=== PATIENT | male | born 1980 | race American Indian/Alaskan Native ===

== ENCOUNTER 2017-10-14 07:57 | Emergency (ER) | payer MEDICAID ==
[~2017-10-14] VITALS: Ht 170.2 cm; Wt 63.5 kg
[~2017-10-14 07:57] MED LIST: AUGMENTIN 875-1 EACH PO; NORCO 5-325 TA1 EACH PO; TRAMADOL HCL50 MG PO
--- NOTE | 2017-10-15 16:56 | EKG ---
[facility] [address] [facility] [place] [address] Signed Sinus tachycardia Otherwise normal ECG No previous ECGs available Confirmed by NE CELESTIN MD ([id number]) on 10/15/2017 4:56:14 PM Electronically Signed By: NE CELESTIN MD 10/15/17 1656 PATIENT NAME: PJ HENRY Electrocardiogram DATE OF : 84 PHYSICIAN: NE CELESTIN MD REPORT #: [id number] REPORT IS CONFIDENTIAL AND NOT TO BE RELEASED WITHOUT AUTHORIZATION
== END 2017-10-14 11:36 | disposition short-term general hospital (02) ==
LOC: ED 07:57 → EDBD 07:59 → ED 11:36
DX: A41.9 Sepsis, unspecified organism (principal); R56.9 Unspecified convulsions; F15.10 Other stimulant abuse, uncomplicated
CPT/HCPCS: 31500; 31720; 43752; 51702; 62270; 70450; 71045; 80053; 81001; 82150; 82550; 82803; 82945; 83605; 83690; 84157; 84484; 85025; 85032; 86850; 86900; 86901; 89051; 93005; 93010; 94002; 96365; 96366; 96375; 99285; G0480; J0696; J1953; J2060; J2704; J3411; J7030; J7042

== ENCOUNTER 2019-02-07 18:09 | Emergency (ER) | payer OTHER ==
[~2019-02-07] VITALS: Ht 170.2 cm; Wt 63.5 kg
--- OUTSIDE RECORDS SUMMARY | ~2019-02-07 | XMS | Encounter Summary ---
Demographics + + + | Address | [address] | | | [place] [address] | + + + | Home Phone | | + + + | Preferred Language | Unknown | + + + | Marital Status | Single | + + + | Lutheran Affiliation | Unknown | + + + | Race | Unknown | + + + | Ethnic Group | Unknown | + + + Author + + + | Author | [facility] | | | and [place] | + + + | Organization | [facility] | | | and [place] | + + + | Address | Unknown | + + + | Phone | Unavailable | + + + Support + + +---------+ + | Name | Relationship | Address | Phone | + + +---------+ + | Renetta Parker ECON | Unknown | | + + +---------+ + Care Team Providers + +------+ + | Care Multifocal Button Generator Name | Role | Phone | + +------+ + PCP | Unavailable | + +------+ + Encounter Details +--------+ + + + + | Date | Type | Department | Care Team | Description | +--------+ + + + + | 10/14/ | Hospital | [facility] | Conversion | Chest pain, | | 2018 | Encounter | CONVERSION [address] | Transaction, | unspecified type | | | | [address] | Provider Unknown | | | | | [place] | | | | | | [phone] | (Fax) | | | | | [phone] | | | +--------+ + + + + Social History + +-------+ +--------+------+ | Tobacco Use | Types | Packs/Day | Years | Date | | | | | Used | | + +-------+ +--------+------+ | Never Assessed | | | | | + +-------+ +--------+------+ + + + | Sex Assigned at | Date Recorded | | | | + + + | Not on file | | + + + + + + + | Job Start Date | Occupation | Industry | + + + + | Not on file | Not on file | Not on file | + + + + + + + + | Travel History | Travel Start | Travel End | + + + + + + | No recent travel history available. | + + documented as of this encounter Plan of Treatment Not on filedocumented as of this encounter Procedures + +--------+ + + + | Procedure Name | Priori | Date/Time | Associated Diagnosis | Comments | | | ty | | | | + +--------+ + + + | XR CHEST 1 VIEW | Routin | 10/14/2017 | | Results for this | | | e | 11:19 AM | | procedure are in the | | | | PDT | | results section. | + +--------+ + + + documented in this encounter Results XR Chest 1 Vw (10/14/2017 11:19 AM PDT) + + | Specimen | + + | | + + + + + | Narrative | Performed At | + + + | This is a non-reportable procedure without a radiologist report and | | | is used for image storage only | | + + + + + | Procedure Note | + + | Samir Rivera Bharath - 10/04/2018 11:13 AM PDT This is a non-reportable procedure | | without a radiologist report and isused for image storage only | + + documented in this encounter Visit Diagnoses + + | Diagnosis | + + | Chest pain, unspecified type | + + documented in this encounter"
--- OUTSIDE RECORDS SUMMARY | ~2019-02-07 | XMS | Clinical Summary ---
Demographics + + + | Address | [address] | | | [place] [address] | + + + | Home Phone | | + + + | Preferred Language | Unknown | + + + | Marital Status | Single | + + + | Adventist Affiliation | Unknown | + + + | Race | Unknown | + + + | Ethnic Group | Unknown | + + + Author + + + | Author | [facility] | | | and [place] | + + + | Organization | [facility] | | | and [place] | [...] Team Providers + +------+ + | Care Gas Plant Dispatcher Name | Role | Phone | + +------+ + PCP | Unavailable | + +------+ + Allergies No Known Allergies Medications Not on file Active Problems + + + | Problem | Noted Date | + + + | SIRS (systemic inflammatory response syndrome) | 10/19/2017 | + + + | Acute metabolic encephalopathy | 10/17/2017 | + + + | Polysubstance abuse | 10/14/2017 | + + + | Seizure | 10/14/2017 | + + + Social History + +-------+ +--------+------+ | Tobacco Use | Types | Packs/Day | Years | Date | | | | | Used | | + +-------+ +--------+------+ | Current Every Day | | | | | | Smoker | | | | | + +-------+ +--------+------+ + + | Comments: smokes marijuana per mother; pt intubated unable to discuss above | + + + + + | Sex Assigned at [...] recent travel history available. | + + Last Filed Vital Signs + + + + + | Vital Sign | Reading | Time Taken | Comments | + + + + + | Blood Pressure | 115/69 | 10/25/2017 4:07 AM | | | | | PDT | | + + + + + | Pulse | 79 | 10/25/2017 4:07 AM | | | | | PDT | | + + + + + | Temperature | 36.6 C (97.9 F) | 10/25/2017 4:07 AM | | | | | PDT | | + + + + + | Respiratory Rate | 18 | 10/25/2017 4:07 AM | | | | | PDT | | + + + + + | Oxygen Saturation | - | - | | + + + + + | Inhaled Oxygen | - | - | | | Concentration | | | | + + + + + | Weight | 71.1 kg (156 lb 12 | 10/25/2017 4:07 AM | | | | oz) | PDT | | + + + + + | Height | 175.3 cm (5' 9") | 10/25/2017 4:07 AM | | | | | PDT | | + + + + + | Body Mass Index | 23.15 | 10/25/2017 4:07 AM | | | | | PDT | | + + + + + Plan of Treatment + + + + + | Health Maintenance | Due Date | Last Done | Comments | + + + + + | Vaccine: | | | | | Dtap/Tdap/Td (1 - | 2 | | | | Tdap) | | | | + + + + + | Vaccine: Influenza | | | | | (#1) | 9 | | | + + + + + Results Not on filefrom Last 3 Months
--- OUTSIDE RECORDS SUMMARY | ~2019-02-07 | XMS | Encounter Summary ---
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 referral established, case # [id number]. Will inform KACEY, ext [phone], and JAVIER Guzman , [phone], when time is assigned. Notified lead RN and CM time scheduled for 09:30. Anette Oneal DO - 10/23/2017 10:49 PM PDT Progress Notes by Anette Hernandez DO at 10/23/172248 Author: Anette Hernandez DO Service: Water Safety Teacher Author Type: Physician Filed: 10/23/172305 Date of Service: 10/23/172248 Status: Addendum Drafter (Cad) Electronic: Anette Hernandez DO (Physician) Related Notes: Original Note by Anette Hernandez DO (Physician) filed at 10/23/172304 Coffee code blue called overhead. Turns out was not code but RN meant to hit staff assist bu tton. When I entered the room 3 RNs and a TRAFFIC RATE COMPUTER were already there. Two RNs were holding pt up with pt standing but very weakly. He apparently got OOB on his own and was several feet fro m the bed and was sitting on the floor when his RN went into the room after she heard him fa ll when she was at the desk outside his room. He was assisted back to the bed without any di fficulty. Pt denies hitting his head. He states he was trying to go to the bathroom. He has a Hollis c atheter from when he was intubated and severely agitated this week but felt the need to void . He was just extubated after having been started on a ketamine infusion in order to get him off of all of the heavy sedation he had been requiring for severe agitation and violent out bursts. He is somnolent appearing and calm on ketamine and able to talk and answer all quest ions appropriately. When asked if he knows where he is he stated, "I have a fairly good idea . In the [facility]." On exam he has no e/o head trauma with no pain with examining his head , no notable bumps or bruising, neuro exam shows CN3-12 intact, 4/5 motor diffusely which is not new with pt being diffusely weak and deconditioned, no focal motor deficits, abd with m inimally tender area LLQ when asked pt if tender anywhere but no guarding, no bruising, swel ling noted on any extremities. He pulled a PIV out when he got up but it was not bleeding at the site. Pt is back in bed resting comfortably after having been settled back in. I advised Dasha, his RN to notify my of any neurologic changes. Will not get a head CT at this time and cont inue to follow closely. I requested a sitter be in the room with him as he is impulsive and his RN reports has been forgetful (prior to the fall). [facility] was notified and we will get one. onversion Ching saction, Provider Unknown - 10/23/2017 10:49 PM PDTFormatting of this note might be differen t from the original. Nurse Progress Note by Dasha Morris RN at 10/23/17 2135 Author: Dasha Morris RN Service: Water Safety Teacher Author Type: Registered Nurse Filed: 10/23/17 8825 Date of Service: 10/23/172248 Status: Signed Drafter (Cad) Electronic: Dasha Morris RN (Registered Nurse) I was sitting at corner desk between In from of rooms [address] and [address] when I head a thud o n the ground in room 55337. I immediately ran in to investigate. Patient was on floor (sit ting on his bottom) several feet from the bed. I immediately helped the patient off the kody or and had him on his feet when two other RNs came to help. We were able to assist the mary ent back to bed without any difficulties though patient did not have full strength in his le gs. Patient denies hitting his head. Neuro exam was benign. Patient groggy but knows where he is. Will continue to monitor closely onver herb Transaction, Provider Unknown - 10/23/2017 9:20 AM PDT Case Management by Lea Cantrell RN at 10/23/17919 Author: Lea Cantrell RN Service: (none) Author Type: Registered Nurse Filed: 10/23/17935 Date of Service: 10/23/17919 Status: Addendum Drafter (Cad) Electronic: Lea Cantrell RN (Registered Nurse) Related Notes: Original Note by Lea Cantrell RN (Registered Nurse) filed at 0 10/23/17919 Tele Psych referral placed, case # [id number]. Will contact RUDI Guzman CM, [phone] when ambrocio e of consult is established. Tele Psych consult time set for 10:00AM. Per protocol notified RUDI Guzman CM and 10RP's VAIBHAV Dumont. onver herb Transaction, Provider Unknown - 10/23/2017 8:04 AM PDT Nurse Progress Note by Marian Sawant RN at 10/23/17803 Author: Marian Sawant RN Service: (none) Author Type: Registered Nurse Filed: 10/23/17809 Date of Service: 10/23/17803 Status: Signed Drafter (Cad) Electronic: Marian Sawant RN (Registered Nurse) Upon entering the room for assessment pts brother states, "that tube is coming out today ri ght." Told pts brother "yes that is what we are hoping for. We will have to wait on the doct ors because we have to do it safely like we discussed yesterday." Pts brother then stated a ggressively while raising his voice, "no, it is coming out today one way or another. It is n ot your choice it is my moms choice. I am not seeing him like this anymore. If he can't rebecca the he can't breathe and he can meet his creator." Attempted to explain and educate pts brot her that just because we don't want to take time and remove tube in a safe manner is not a reason for someone to because they can't breathe because we didn't remove the tube the p christine way. Pts brother then hollered back "i don't care. It is coming out today one way or the other. It is not your choice or anyone elses. It is my mothers choice." Explained to pts brother that I was not here to argue with him and that we will end the discussion at this t micheline until the doctor has made rounds and can speak with them. Pts brother made no further co mments. Pts mother at bedside and appeared to understanding saying "thank you" before this nurse left the room. Dr. Shearer and Palmira/LOLLY notified of conversation. Palmira Covington ARNP - 10/23/2017 7:08 AM PDTFormatting of this note might be different from natacha berkowitz. Progress Notes by LOLLY Monterroso at 10/23/17 0708 Author: LOLLY Monterroso Service: Water Safety Teacher Author Type: Advanced Registered Mickey se Practitioner Filed: 10/23/17 1131 Date of Service: 10/23/17707 Status: Signed Drafter (Cad) Electronic: LOLLY Monterroso (Advanced Registered Nurse Practitioner) [facility] Service: Water Safety Teacher Progress Note Bravo Henry 37 y.o. Hospital Day: LOS: 9 days Post-Op Day: * No surgery found * Consulting Physicians Treatment Team: Admitting Provider: Deni Shearer MD SUBJECTIVE Patient Summary: Per Palmira Givens's H&P: "The patient is a 37 y.o. male with unknown history other than polysubstance abuse who presents as a transfer from [facility] Emergency Department. Per report the patient was in the process of incarceration and was no lisa to have altered mental status and began having active seizure activity described as pepe c clonic movements lasting approximately 45 minutes. He was transported to [facility] and was intubated for airway protection. He was given 1 gram keppra and ativan for seizu re activity and a lumbar puncture was performed with clear fluid that had no WBCs, glucose 7 5, and protein 28. He was started on ceftriaxone due to mild fever in the setting of altered mental status and leukocytosis. After initial evaluation, the patient was transferred to [facility] ICU for further evaluation and treatment. Of note, his drug screen revealed methamphetamine, amphetamine, MDMA, and THC." ICU Timeline: 10/14: ICU admission intubated on MV. 10/15: Extubated; remains on Precedex due to agitation 10/16: Required reintubation 10-17: seroquel started 10-18: woke up agitated, seroquel up to 100 bid, unasyn started for fever, leukocytosis a nd ett sceretions 10-19: psych consult, unasyn started for fever, leukocytosis and ett sceretions 10-20: Remains intubated, sedated and on MV, remains very aggressive not following comman ds off sedation. 10/22: Remains intubated and on MV. Started cross taper with olanzapine. Events Overnight: Remains intubated and sedated. Increased secretions from OETT, still intermittent agitation. SCHEDULED MEDICATIONS chlorhexidine 15 mL Mouth/Throat BID docusate sodium 100 mg Oral BID Or docusate 100 mg Per OG Tube BID enoxaparin 40 mg Subcutaneous Q24H famotidine 20 mg Oral BID OLANZapine 10 mg Oral BID Or OLANZapine 10 mg Intramuscular BID polyethylene glycol 17 g Oral Daily polyethylene glycol 17 g Oral Daily QUEtiapine 50 mg Oral BID CONTINUOUS INFUSIONS dexmedetomidine in NS 1.5 mcg/kg/hr (10/22/174) fentaNYL in NS 5 mcg/mL 75 mcg/hr (10/23/17 0539) midazolam in NS 10 mg/hr (10/22/178) propofol 20 mcg/kg/min (10/23/17 0307) OBJECTIVE VITAL SIGNS Temp: [98.4 F (36.9 C)-100.6 F (38.1 C)] 98.4 F (36.9 C) Heart Rate: [66-94] 78 Resp: [11-52] 22 BP: (85-113)/(50-72) 90/53 FiO2 : [25 %] 25 % Intake/Output Summary (Last 24 hours) at 10/23/17 0708 Last data filed at 10/23/17 0600 Gross per 24 hour Intake 4249.28 ml Output 6015 ml Net -1765.72 ml EXAM-limited due to sedation GEN: Intubated and sedated on MV. Lying in bed in NAD NEURO: PERRL, no facial asymmetry, moved all extremities. HEENT: sclerae clear, nonicteric, oral mmm, pink, OETT with secretions, OGT NECK: trachea midline CV: RRR, heart tones regular, no murmur, rub or gallop, peripheral pulses palpable, cap ref ill < 3 seconds LUNGS: coarse anterior lung sounds, no wheezing, rales or rhonchi, symmetric chest expansio n on MV ABD: soft, nondistended, bowel sounds present, no response to palpation EXTR: trace BUE edema, no clubbing or cyanosis SKIN: warm, dry, no rash or mottling; small abrasion on face and left foot. LINES/TUBES: PIV, hollis (10/16), ETT/OGT (10/16) DATA Recent Labs Lab 10/23/17 0401 10/22/17 0401 10/21/17 0413 10/18/17 0356 WBC 13.33* 7.04 7.79 < > 18.17* RBC 4.49 4.32 4.42 < > 5.08 HGB 13.5 12.9* 13.2 < > 15.1 HCT 39.6 38.3* 39.7 < > 45.2 MCV 88.2 88.7 89.7 < > 89.1 MCH 30.1 29.8 29.9 < > 29.7 MCHC 34.1 33.7 33.4 < > 33.3 RDW 50.3 50.8 51.6 < > 53.8* PLT 391 356 325 < > 254 MPV 9.3 9.2 9.2 < > 9.2 BANDSABS -- -- -- -- 2.18* NEUTROABS 9.67* 4.78 5.26 < > -- LYMPHSABS 1.18 0.82* 0.86* < > -- MONOSABS 1.81* 0.96* 1.05* < > -- BASOSABS 0.07 0.04 0.03 < > -- EOSABS 0.59* 0.44 0.59* < > -- MORPH -- -- -- -- RBC AND PLT MORPHOLOGY APPEAR NORMAL < > = values in this interval not displayed. Recent Labs Lab 10/23/17 0401 10/22/17 0401 10/21/17 0413 NA 140 139 142 K 4.5 4.6 4.3 CL 107 106 109 CO2 24 23 25 ANIONGAP 14 15 12 GLUF 133* 136* 141* BUN 20 17 14 CREATININE 0.8 0.8 0.7 BCR 25 21 20 CA 8.1* 7.9* 8.0* EGFR >60 >60 >60 PHOS 3.7 3.5 3.7 MG 2.4 2.3 2.2 No results for input(s): INR in the last 168 hours. IMAGING No new imaging. PROBLEM LIST Principal Problem: Seizure (HCC) Active Problems: Polysubstance abuse Acute metabolic encephalopathy SIRS (systemic inflammatory response syndrome) (HCC) Resolved Problems: Bandemia ASSESSMENT & PLAN NEURO: Acute metabolic encephalopathy likely secondary to drug use and seizure. Continue supportive measures. PRN ativan for agitation or seizure activity. Required sedation and intubation due to uncontrollable behaviors and risk of self harm du e to encephalopathy. Psychiatry consulted and will assist with medication management and plan. Polysubstance abuse: drug screen positive for MDMA, methamphetamines, amphetamines, and THC. Supportive care. Continue treating seizures with benzos if occurs If becomes hypertensive, use benzos as first line and avoid beta blockers. Seizures: most likely secondary to polysubstance use CT head negative, LP negative. EEG negative for epileptiform discharges. ETOH history per report: received thiamine and folic acid and was on CIWA ? Underlying psych disorder undiagnosed or untreated: Tele psych consulted Undergoing cross taper from seroquel to zyprexa. PRN zyprexa and ativan for severe agitat ion Monitor QTc daily CV: Hemodynamically stable. Monitor on telemetry. Daily EKG for QTc monitoring. Hold antipsychotic if >500 PULM: Required sedation and intubation due to severe agitation and to protect patient from jaimie f harm. Maintain lung protective vent strategy; wean FiO2 and PEEP as tolerated. GI/NUTRITION: Continue TF per RD. Recommendations Recommended energy needs: Recommend increasing TF of Isosource 1.5 to goal rate of 65 ml/hr (x20hr) and decreasing beneprotein to 1 packet daily in water flushes to better meet pt's e st nutrition needs. TF would provide 1950 kcal, 88 g protein, 1300 ml TV, and [address] 1 scoop of beneprotein provides 25 kcal, 6 g protein. Overall TF, beneprotein, and prop ofol will provide 2181 kcal, 94 g protein which supplies 33.6 kcal/kg and 1.44 g pro/kg base d on pt's admit wt. Further nutrition recs to follow based on pt's status, plan of care, med s, labs, and propofol rate. RENAL/LYTES: No acute issues. Monitor renal function, electrolytes, and I/O. Avoid nephrotoxins, renally dose meds. ID: Aspiration PNA: completed 5 day course of antibiotics with unasyn. Sputum culture with s taph. HEME: No acute issues. ENDO: No acute issues. MUSC/SKIN: Turn and assess skin per protocol. PROPHYLAXIS: Stress ulcer prophylaxis: PPI DVT prophylaxis: Heparin SQ VAP bundle: chlorhexidine oral care, HOB >30 degrees Disposition: ICU plan of care as above. Code Status: Full Code *Please bill 45 minutes of critical care time spent evaluating the patient, reviewing the d donna and formulating a plan exclusive of all other procedures. LOLLY Monterroso 10/23/2017 7:08 AM onversion Transa ction, Provider Unknown - 10/22/2017 9:15 PM PDT Nurse Progress Note by Dahsa Morris RN at 10/22/172114 Author: Dasha Morris RN Service: Water Safety Teacher Author Type: Registered Nurse Filed: 10/22/17 Date of Service: 10/22/172114 Status: Signed Drafter (Cad) Electronic: Dasha Morris RN (Registered Nurse) Walked into room to check on patient as vent was alarming. Patient's brother, Sarah was in room, hovered over patient talking to him and stimulating him. Patient was increasingly ramon tated and coughing against vent. Patient awake and agitated, sitting up in bed, attempting to reach for tube while brother is repeatedly asking me to take the tube out right now. I e xplained to Sarah that we cannot safely remove the tube right now and we are bridging between seroquel to zyprexa to help patient remain calm while we attempt to try to extubate when th e patient is ready. Sarah again tells me to remove the tube while patient is more agitated a nd attempting to pull. I call for LOLLY Ro who comes in to explain also to patient that we cannot safely remove tube. Sarah says we are taking too long and making his brother suffe r. I assure him that patient is sedated while intubated and is receiving pain medication vi a IV so that he is kept comfortable, all per protocol. Sarah finally calms down and says he will not pull tube, nor let patient pull tube. 2145: In patient's room to administer medications and Sarah expresses his concern that mary ent is too awake. I explain that sedation has not been increased d/t patient's soft SBP, bu t will increase Propofol from 10mcg to 15 mcg to see if patient tolerates it and is better s edated. Sarah agrees that he wants his brother kept as comfortable as possible and I explain that that is my goal - to keep his brother safe, and as comfortable as possible. Will cont inue to monitor patient closely. onver herb Transaction, Provider Unknown - 10/22/2017 7:53 AM PDT Case Management by Lea Cantrell RN at 10/22/17 4467 Author: Lea Cantrell RN Service: (none) Author Type: Registered Nurse Filed: 10/22/17 1138 Date of Service: 10/22/17752 Status: Addendum Drafter (Cad) Electronic: Lea Cantrell RN (Registered Nurse) Related Notes: Original Note by Lea Cantrell RN (Registered Nurse) filed at 0 10/22/17 9037 Order for psychiatric evaluation unable to be completed due to pt's vented status. Addendum: Psych consult requested by Dr. Andrews for psych medication management. Assigned Case # [id number]. oPalmira balderas ARNP - 10/22/2017 7:16 AM PDTFormatting of this note might be different from th e original. Progress Notes by LOLLY Monterroso at 10/22/17715 Author: LOLLY Monterroso Service: Water Safety Teacher Author Type: Advanced Registered Mickey se Practitioner Filed: 10/22/17 1408 Date of Service: 10/22/17715 Status: Signed Drafter (Cad) Electronic: LOLLY Monterroso (Advanced Registered Nurse Practitioner) [facility] Service: Water Safety Teacher Progress Note Bravo Henry 37 y.o. Hospital Day: LOS: 8 days Post-Op Day: * No surgery found * Consulting Physicians Treatment Team: Admitting Provider: Deni Shearer MD SUBJECTIVE Patient Summary: Per Palmira Givens's H&P: "The patient is a 37 y.o. male with unknown history other than polysubstance abuse who presents as a transfer from [facility] Emergency Department. Per report the patient was in the process of incarceration and was no lisa to have altered mental status and began having active seizure activity described as pepe c clonic movements lasting approximately 45 minutes. He was transported to [facility] and was intubated for airway protection. He was given 1 gram keppra and ativan for seizu re activity and a lumbar puncture was performed with clear fluid that had no WBCs, glucose 7 5, and protein 28. He was started on ceftriaxone due to mild fever in the setting of altered mental status and leukocytosis. After initial evaluation, the patient was transferred to [facility] ICU for further evaluation and treatment. Of note, his drug screen revealed methamphetamine, amphetamine, MDMA, and THC." ICU Timeline: 10/14: ICU admission intubated on MV. 10/15: Extubated; remains on Precedex due to agitation 10/16: Required reintubation 10-17: seroquel started 10-18: woke up agitated, seroquel up to 100 bid, unasyn started for fever, leukocytosis a nd ett sceretions 10-19: psych consult, unasyn started for fever, leukocytosis and ett sceretions 8-30: Remains intubated, sedated and on MV, remains very aggressive not following comman ds off sedation. Events Overnight: Remains intubated and on MV. Continued OETT white secretions. Sedate d, follows commands when sedation lightened but intermittently aggressive. SCHEDULED MEDICATIONS ampicillin-sulbactam 3 g Intravenous Q6H chlorhexidine 15 mL Mouth/Throat BID docusate sodium 100 mg Oral BID Or docusate 100 mg Per OG Tube BID enoxaparin 40 mg Subcutaneous Q24H famotidine 20 mg Oral BID polyethylene glycol 17 g Oral Daily QUEtiapine 200 mg Oral BID CONTINUOUS INFUSIONS dexmedetomidine in NS 1.5 mcg/kg/hr (10/22/17 0457) fentaNYL in NS 5 mcg/mL 75 mcg/hr (10/22/17 040) midazolam in NS 10 mg/hr (10/22/17 040) propofol 10 mcg/kg/min (10/22/17 0504) OBJECTIVE VITAL SIGNS Temp: [98.4 F (36.9 C)-101.3 F (38.5 C)] 99.6 F (37.6 C) Heart Rate: [72-92] 73 Resp: [14-29] 18 BP: (85-112)/(50-74) 98/58 FiO2 : [25 %] 25 % Intake/Output Summary (Last 24 hours) at 10/22/17 0716 Last data filed at 10/22/17 0600 Gross per 24 hour Intake 4313.5 ml Output 2007 ml Net 2306.5 ml EXAM-limited due to sedation GEN: Intubated and sedated on MV. Lying in bed in NAD NEURO: PERRL, no facial asymmetry, moved all extremities. Did not follow commands while sed ated HEENT: sclerae clear, nonicteric, oral mmm, pink, OETT with white secretions, OGT NECK: trachea midline CV: RRR, heart tones regular, no murmur, rub or gallop, peripheral pulses palpable, cap ref ill < 3 seconds LUNGS: coarse anterior lung sounds, no wheezing, rales or rhonchi, symmetric chest expansio n on MV ABD: soft, nondistended, bowel sounds present, no response to palpation EXTR: no edema, clubbing or cyanosis SKIN: warm, dry, no rash or mottling; small abrasion on face and left foot. LINES/TUBES: PIV, hollis (10/16), ETT/OGT (10/16) DATA Recent Labs Lab 10/22/1740010/21/1741210/20/1740210/18/17 0356 WBC 7.04 7.79 10.43 < > 18.17* RBC 4.32 4.42 4.13* < > 5.08 HGB 12.9* 13.2 12.5* < > 15.1 HCT 38.3* 39.7 36.8* < > 45.2 MCV 88.7 89.7 89.3 < > 89.1 MCH 29.8 29.9 30.3 < > 29.7 MCHC 33.7 33.4 34.0 < > 33.3 RDW 50.8 51.6 50.8 < > 53.8* PLT 356 325 294 < > 254 MPV 9.2 9.2 9.6 < > 9.2 BANDSABS -- -- -- -- 2.18* NEUTROABS 4.78 5.26 7.11 < > -- LYMPHSABS 0.82* 0.86* 1.05 < > -- MONOSABS 0.96* 1.05* 1.59* < > -- BASOSABS 0.04 0.03 0.06 < > -- EOSABS 0.44 0.59* 0.61* < > -- MORPH -- -- -- -- RBC AND PLT MORPHOLOGY APPEAR NORMAL < > = values in this interval not displayed. Recent Labs Lab 10/22/1740010/21/1741210/20/1740210/16/17 0407 NA 139 142 142 < > 143 K 4.6 4.3 4.4 < > 4.0 CL 106 109 110* < > 109 CO2 23 25 25 < > 24 ANIONGAP 15 12 11 < > 14 GLUF 136* 141* 122* < > 101* BUN 17 14 13 < > 10 CREATININE 0.8 0.7 0.7 < > 1.0 BCR 21 20 19 < > 10 CA 7.9* 8.0* 8.1* < > 8.4* ALB -- -- -- -- 3.3* PROT -- -- -- -- 7.7 BILITOT -- -- -- -- 0.7 ALT -- -- -- -- 33 AST -- -- -- -- 52* EGFR >60 >60 >60 < > >60 PHOS 3.5 3.7 4.0 < > 3.2 MG 2.3 2.2 2.3 < > 2.0 < > = values in this interval not displayed. No results for input(s): INR in the last 168 hours. IMAGING No new imaging. PROBLEM LIST Principal Problem: Seizure (HCC) Active Problems: Polysubstance abuse Acute metabolic encephalopathy SIRS (systemic inflammatory response syndrome) (HCC) Resolved Problems: Bandemia ASSESSMENT & PLAN NEURO: Acute metabolic encephalopathy likely secondary to drug use and seizure. Continue supportive measures. PRN ativan for agitation or seizure activity. Required sedation and intubation due to uncontrollable behaviors and risk of self harm du e to encephalopathy. Psychiatry consulted and will assist with medication management and plan. Polysubstance abuse: drug screen positive for MDMA, methamphetamines, amphetamines, and THC. Supportive care. Continue treating seizures with benzos if occurs If becomes hypertensive, use benzos as first line and avoid beta blockers. Seizures: most likely secondary to polysubstance use CT head negative, LP negative. EEG negative for epileptiform discharges. ETOH history per report: received thiamine and folic acid and was on CIWA ? Underlying psych disorder undiagnosed or untreated: Tele psych consulted and recommend ation. D/C seroquel per psychiatry recommendations. Start zyprexa scheduled and prn for eliel re agitation. May also use PRN ativan per psychiatry. CV: Hemodynamically stable. Monitor on telemetry. Daily EKG for QTc monitoring. Hold antipsychotic if >500 PULM: Required sedation and intubation due to severe agitation and to protect patient from jaimie f harm. Maintain lung protective vent strategy; wean FiO2 and PEEP as tolerated. GI/NUTRITION: Continue TF per RD. Recommendations Recommended energy needs: Recommend increasing TF of Isosource 1.5 to goal rate of 65 ml /hr (x20hr) and decreasing beneprotein to 1 packet daily in water flushes to better meet pt' s est nutrition needs. TF would provide 1950 kcal, 88 g protein, 1300 ml TV, and 993 ml free water. 1 scoop of beneprotein provides 25 kcal, 6 g protein. Overall TF, beneprotein, and p ropofol will provide 2181 kcal, 94 g protein which supplies 33.6 kcal/kg and 1.44 g pro/kg b ased on pt's admit wt. Further nutrition recs to follow based on pt's status, plan of care, meds, labs, and propofol rate. RENAL/LYTES: No acute issues. Monitor renal function, electrolytes, and I/O. Avoid nephrotoxins, renally dose meds. ID: Aspiration PNA: continue unasyn for 2 days. HEME: No acute issues. ENDO: No acute issues. MUSC/SKIN: Turn and assess skin per protocol. PROPHYLAXIS: Stress ulcer prophylaxis: PPI DVT prophylaxis: Heparin SQ VAP bundle: chlorhexidine oral care, HOB >30 degrees Disposition: ICU plan of care as above. Code Status: Full Code *Please bill 40 minutes of critical care time spent evaluating the patient, reviewing the d donna and formulating a plan exclusive of all other procedures. LOLYL Monterroso 10/22/2017 7:17 AM onversion Transa ction, Provider Unknown - 10/21/2017 6:43 PM PDT Progress Notes by Radha Luna RN at 10/21/171842 Author: Radha Luna RN Service: (none) Author Type: Registered Nurse Filed: 10/21/171843 Date of Service: 10/21/171842 Status: Signed Drafter (Cad) Electronic: Radha Luna RN (Registered Nurse) Pts brother at bedside update given to all family. Pt's brother verbally aggressive. Brothe r calmed down by Johnson onver herb Transaction, Provider Unknown - 10/21/2017 6:28 PM PDT Progress Notes by Ambrocio Reynolds at 10/21/171827 Author: Ambrocio Reynolds Service: (none) Author Type: Filed: 10/21/171828 Date of Service: 10/21/171827 Status: Signed Drafter (Cad) Electronic: Ambrocio Reynolds (Medical Care Manager) Mother requested bible; NT & Psalms delivered, to her thanks. Also, prayer offered and acc epted for pt's well-being and God's blessing. onver herb Transaction, Provider Unknown - 10/21/2017 12:25 PM PDT Progress Notes by Radha Luna RN at 10/21/17 1225 Author: Radha Luna RN Service: (none) Author Type: Registered Nurse Filed: 10/21/17 1227 Date of Service: 10/21/171224 Status: Signed Drafter (Cad) Electronic: Radha Luna RN (Registered Nurse) From a resp status pt appears able to extubed however pt becomes so violent and agitated th at for safety reasons pt resedated. Pt attemping to kick, swing, get OOB, and mouthing obsce ne language onver herb Transaction, Provider Unknown - 10/21/2017 11:05 AM PDT Progress Notes by Rahda Luna RN at 10/21/17 110 Author: Radha Luna RN Service: (none) Author Type: Registered Nurse Filed: 10/21/17 110 Date of Service: 10/21/17 110 Status: Signed Drafter (Cad) Electronic: Radha Luna RN (Registered Nurse) Update to johnson given onver herb Transaction, Provider Unknown - 10/21/2017 10:58 AM PDT Progress Notes by Radha Luna RN at 10/21/17 105 Author: Radha Luna RN Service: (none) Author Type: Registered Nurse Filed: 10/21/17 1054 Date of Service: 10/21/171057 Status: Signed Drafter (Cad) Electronic: Radha Luna RN (Registered Nurse) Called johnson for an update after rounding, no answer and mail box not set up. onver herb Transaction, Provider Unknown - 10/21/2017 10:22 AM PDT Case Management by Julia Oswald RN at 10/21/17 1022 Author: Julia Oswald RN Service: (none) Author Type: Registered Nurse Filed: 10/21/17 1034 Date of Service: 10/21/17 1022 Status: Addendum Drafter (Cad) Electronic: Julia Oswald RN (Registered Nurse) Related Notes: Original Note by Julia Oswald RN (Registered Nurse) filed at 10/21/[address] Shearer: Plan of care: pt still intubated and sedated. Nursing working on lightening sedation in pes to extubate pt safely. Pt is able to go home with mother when ready for discharge. He was independent prior to ar rival. Anger and aggressive issues per nursing with pt prior. Mother was escorted out of [facility] yesterday. Deni Harper MD - 10/21/2017 10:00 AM PDT Progress Notes by Deni Shearer MD at 10/21/17 1000 Author: Deni Shearer MD Service: Water Safety Teacher Author Type: Physician Filed: 11/03/17 1350 Date of Service: 10/21/17 1000 Status: Signed Drafter (Cad) Electronic: Deni Shearer MD (Physician) [facility] Service: Water Safety Teacher Progress Note Bravo Henry 37 y.o. Hospital Day: LOS: 11 days Post-Op Day: * No surgery found * Consulting Physicians Treatment Team: Admitting Provider: Deni Shearer MD SUBJECTIVE Patient Summary: Per Palmira Givens's H&P: "The patient is a 37 y.o. male with unknown history other than polysubstance abuse who presents as a transfer from [facility] Emergency Department. Per report the patient was in the process of incarceration and was no lisa to have altered mental status and began having active seizure activity described as pepe c clonic movements lasting approximately 45 minutes. He was transported to [facility] and was intubated for airway protection. He was given 1 gram keppra and ativan for seizu re activity and a lumbar puncture was performed with clear fluid that had no WBCs, glucose 7 5, and protein 28. He was started on ceftriaxone due to mild fever in the setting of altered mental status and leukocytosis. After initial evaluation, the patient was transferred to [facility] ICU for further evaluation and treatment. Of note, his drug screen revealed methamphetamine, amphetamine, MDMA, and THC." ICU Timeline: 10/14: ICU admission intubated on MV. 10/15: Extubated; remains on Precedex due to agitation 10/16: Required reintubation 10-17: seroquel started 10-18: woke up agitated, seroquel up to 100 bid, unasyn started for fever, leukocytosis a nd ett sceretions 10-19: psych consult, unasyn started for fever, leukocytosis and ett sceretions Events Overnight: Remains intubated, sedated and on MV, SCHEDULED MEDICATIONS CONTINUOUS INFUSIONS OBJECTIVE VITAL SIGNS EXAM GEN: Intubated, Sedated, On MV, NEURO: PERRL, no facial asymmetry, moved all 4, agitated when stimulated HEENT: sclerae clear, nonicteric, oral mmm, pink NECK: trachea midline CV: RRR, S1S2, no murmur, rub or gallop, peripheral pulses palpable, cap refill < 3 seconds LUNGS: clear b/l diminished in bilateral bases, no wheezing, rales or rhonchi, symmetric ch est expansion on MV ABD: soft, nondistended, bowel sounds diminished EXTR: no edema, clubbing or cyanosis SKIN: warm, dry, no rash or mottling; small abrasion on face and left foot. LINES/TUBES: PIV, hollis (10/16), ETT/OGT (10/16) DATA No results for input(s): WBC, RBC, HGB, HCT, MCV, MCH, MCHC, RDW, PLT, MPV, BANDSABS, NEUTR OABS, LYMPHSABS, ATYPLYMPABS, MONOSABS, BASOSABS, EOSABS, MORPH in the last 168 hours. No results for input(s): NA, K, CL, CO2, ANIONGAP, GLUF, BUN, CREATININE, BCR, CA, ALB, HARMAN B, AG, PROT, BILITOT, ALKPHOS, ALT, AST, EGFR, PHOS, MG in the last 168 hours. No results for input(s): INR in the last 168 hours. IMAGING X-ray Chest 1 View Result Date: 10/16/2017 Tubes and lines in expected position. Lungs are clear. X-ray Chest 1 View Result Date: 10/16/2017 1. Tubes and lines in expected position. X-ray Chest 1 View Result Date: 10/14/2017 1. Support lines and tubes are in satisfactory position. LEM LIST Principal Problem: Seizure (HCC) Active Problems: Polysubstance abuse Acute metabolic encephalopathy SIRS (systemic inflammatory response syndrome) (HCC) Resolved Problems: Bandemia ASSESSMENT & PLAN NEURO: Acute metabolic encephalopathy likely secondary to drug use and seizure. Supportive kelechi ures. PRN ativan for agitation or seizure activity. psych eval lisa. Required sedation an d intubation due to uncontrollable behaviors and risk of self harm due to encephalopathy. Polysubstance abuse: drug screen positive for MDMA, methamphetamines, amphetamines, and THC. Supportive care. Continue treating seizures with benzos if occurs, EEG is negative for se izures. Seizures: most likely secondary to polysubstance use CT head negative, LP negative. EEG negative for epileptiform discharges. Unknown ETOH history: continue on CIWA, thiamine, and folic for now. ? Underlying psych disorder undiagnosed or untreated: increase seroquel to 200 bid. Tele psych consult pending. CV: Hemodynamically stable. Monitor on telemetry. PULM: Required sedation and intubation due to severe agitation and to protect patient from jaimie f harm. Maintain lung protective vent strategy; wean FiO2 and PEEP as tolerated GI/NUTRITION: On TFs RENAL/LYTES: Monitor renal function, electrolytes, and I/O. Avoid nephrotoxins, renally dose meds. Elevated CPK in the setting of seizure. Improving with hydration. Continue to monitor. ID: LP negative. unasyn started for fever, leukocytosis and ett sceretions on 10-19 HEME: Leukocytosis likely reactionary in setting of seizure. Unlikely infectious , but will ke ep a close look mainly for pulmonary sources. No acute issues. ENDO: No acute issues. MUSC/SKIN: Routine skin care as per nursing protocol Turn/reposition Q 2 hours while in bed PT/OT to assess/treat when appropriate PROPHYLAXIS: Stress ulcer prophylaxis: PPI DVT prophylaxis: Heparin SQ VAP bundle: chlorhexidine oral care, HOB >30 degrees Disposition: ICU plan of care as above. Code Status: Prior *Please bill 35 minutes of critical care time spent evaluating the patient, reviewing the d donna and formulating a plan exclusive of all other procedures. Deni Shearer MD 11/03/2017 onversion Transaction, Provider Unknown - 10/21/2017 9:36 AM PDTFormatting of this note might be dif ferent from the original. Progress Notes by Radha Luna RN at 10/21/17935 Author: Radha Luna RN Service: (none) Author Type: Registered Nurse Filed: 10/21/17936 Date of Service: 10/21/17935 Status: Signed Drafter (Cad) Electronic: Radha Luna RN (Registered Nurse) Johnson called asking for name of etcher printed circuit boards RN onver herb Transaction, Provider Unknown - 10/21/2017 9:27 AM PDT Progress Notes by Radha Luna RN at 10/21/17926 Author: Radha Luna RN Service: (none) Author Type: Registered Nurse Filed: 10/21/17931 Date of Service: 10/21/17926 Status: Signed Drafter (Cad) Electronic: Radha Luna RN (Registered Nurse) Johnson called for update. Update given. Johnson calm on phone during update she steered co nversation to herself and that " I had to get a hotel last night, and I'm shelling out money for this. You know I lost a lot of money last night." Instead of commenting on her statemen t, I steered the conversation back to Bravo and stated I would call her after rounds to u pdate her for plan for the day. onver herb Transaction, Provider Unknown - 10/20/2017 4:30 PM PDT Nurse Progress Note by Lexii Castreojn RN at 10/20/17 1630 Author: Lexii Castrejon RN Service: (none) Author Type: Registered Nurse Filed: 10/20/17 3718 Date of Service: 10/20/171629 Status: Signed Drafter (Cad) Electronic: Lexii Castrejon RN (Registered Nurse) Around 1520 pt's mother return to room, she was very abrupt and agitated. As she entered [facility] room I was suctioning pt's mouth and explaining, in a calm voice what I was doing. Pt woke up and attempted to sit up/ pull at ETT but settled down after propofol 10mcg/kg given and rate increased to 25mcg/kg/min. At 1535 from out side of the pt's room I saw him again wake up and start trying to sit up and pull his ETT with his right hand, asked RUDI Jones to go in and redirect him but as he nearly had the ETT I ran in and eased his right hand back down and his right shoulder back down on the bed. Verbal redirection given in a firm, calm milly r, reminding pt that we wanted him to "be calm and stay safe, please don't touch your breath ing tube." Pt's mother came to the opposite side of the bed and was very upset, she yelled, "dont you bum monroe him! Why are you being so rough! You don't need to yell at him!" Explaine d to Johnson that I rushed because I was concerned that he almost had his breathing tube, I then started to redirect pt as I increased his propofol and Johnson said, "shh" and quickly, aggressively put her hand in my face. I firmly stated, "ma'am don't ever put your hand in m y face again." Johnson immediately did it again but faster and closer to my face than the rst time. I leaned back and tightened his restraints as Karen RN explained to pt's mother that self extubating can hurt him and our goal is to keep him safe. Johnson interrupted and told Karen to "stop being negative". She then spoke directly to the pt and stated, "They are so negative but you and I are positive. Let them be negative, I am here for you and we w ill be positive. I'm not here for them, I'm here for you, I wont let them yell at you anymor e. I wont let them hurt you. They are writing papers but Im writing my own papers. I will be filing our own papers for us. You know I will. I will stay here with you." After pt re shai lisa and restraints adjusted Karen and I stepped out of the room. Johnson immediately got t he folding chair and placed it right in front of the IV pumps at the pt's bedside and sat do wn. Karen RN call community advocate Sindy and RUDI Wyatt (patient advocate). We discussed Elzbieta murphy's actions and after security arrived, we as a group went in to pt's room with Yoselin and she spoke molly Johnson. After their conversation Johnson was instructed to leave and it was ex plained that she could return tomorrow morning after shift change but if she has anymore beh avior issues she would be trespassed for the remained pt the pt's stay here. Johnson was esc orted out by security. Pt continues to rest in bed with sedation in place, wrist restraints on. onver herb Transaction, Provider Unknown - 10/20/2017 4:08 PM PDT Case Management by HENRY Lou at 10/20/17 9967 Author: HENRY Lou Service: (none) Author Type: Fruit Peeler Filed: 10/20/17 1868 Date of Service: 10/20/17 1609 Status: Signed Drafter (Cad) Electronic: HENRY Lou (Fruit Peeler) I received a voicemail from pt's mother who sounded teary and "frantic". She indicated demetrice t she was in the pt's room last night and that her brother had visited pt last night. He rep ortedly gave pt's mother $2000.00 mars. She states that she slept over in pt's room and le ft her wallet on the table. She states that she now has $1000.00 missing and wanted to know who to report this to. I was unable to speak with pt's mother when she arrived due to an a ltercation she had with the pt's bedside RN. Pt's mother was escorted our of the [facility] after talking with a Pt Advocate. The Advocate was aware of mother's complaint so provided her with the contact to Risk Management where she can file a complaint. CM to follow up tomorrow. onver herb Transaction, Provider Unknown - 10/20/2017 2:00 PM PDT Nurse Progress Note by Lexii Castrejon RN at 10/20/17 1400 Author: Lexii Castrejon RN Service: (none) Author Type: Registered Nurse Filed: 10/20/17 1800 Date of Service: 10/20/17 1400 Status: Signed Drafter (Cad) Electronic: Lexii Castrejon RN (Registered Nurse) Pt given full bed bath, oral care, and linen changed. Pt remained calm with sedation on dur ing pt care. ROM preformed at this time as well. Leg restraints left off due to decreased ag itation, will cont to monitor pt closely. onver herb Transaction, Provider Unknown - 10/20/2017 10:54 AM PDT Progress Notes by Jd Mcnulty RD at 10/20/17 1054 Author: Jd Mcnulty RD Service: (none) Author Type: Registered Dietitian Filed: 10/20/17 1054 Date of Service: 10/20/17 1054 Status: Signed Drafter (Cad) Electronic: Jd Mcnulty RD (Registered Dietitian) 10/20/17 1047 Subjective Timepoint Follow up Pt c/o H risk follow up. Pt remains intubated, unable to follows commands, is sedated on fe ntanyl, versed, precedex, and propofol. Pt is getting Isosource 1.5 at goal rate of 55 ml/hr , 1 scoop of beneprotein TID, water flushes at 30 ml q 4 hrs. RN states pt is tolerating TF. Reported by RN Fluid / Beverage Intake Oral Fluids Amount NPO Food Intake Type of Food / Meals NPO Enteral Nutrition Intake Access OG tube. Parenteral Nutrition Intake Rate/Solution LR running at 30 ml/hr. Propofol running at 7.8 ml/hr provides approx 206 kca l/day. Nutrition-Focused Physical Findings Digestive System (Mouth to Rectum) No BM yet during stay, bowel regimen ordered to promote BM. Anthropometrics Weight change No current wt to review. According to I/O's pt is approx + 7.7 L of fluid. Wi ll continue to monitor wt trend. Biochemical data, medical tests, and procedures reviewed Biochemical data, medical tests, and procedures reviewed Labs reviewed. Recommendations Recommended energy needs Recommend increasing TF of Isosource 1.5 to goal rate of 65 ml/hr (x20hr) and decreasing beneprotein to 1 packet daily in water flushes to better meet pt's es t nutrition needs. TF would provide 1950 kcal, 88 g protein, 1300 ml TV, and 993 ml free cornelio er. 1 scoop of beneprotein provides 25 kcal, 6 g protein. Overall TF, beneprotein, and propo fol will provide 2181 kcal, 94 g protein which supplies 33.6 kcal/kg and 1.44 g pro/kg based on pt's admit wt. Further nutrition recs to follow based on pt's status, plan of care, meds , labs, and propofol rate. Nutritional Risk Nutritional risk High Follow up date 10/23/[address] onver herb Transaction, Provider Unknown - 10/20/2017 9:43 AM PDT Case Management by Julia Oswald RN at 10/20/17 4608 Author: Julia Oswald RN Service: (none) Author Type: Registered Nurse Filed: 10/20/17 1003 Date of Service: 10/20/1786 Status: Addendum Drafter (Cad) Electronic: Julia Oswald RN (Registered Nurse) Related Notes: Original Note by Julia Oswald RN (Registered Nurse) filed at 10/20/17945 Spoke with the tele psych retail sales representative- informed him that the pt is still intubated and s edated, and will not be able to have a video conference with the provider and that it is Dr Davalos that wanted to speak with the provider about medication ideas. Informed Dr Davalos about plan of care. He said that he already spoke to the Dr but that h e would like to psych Dr to talk with the mother of the pt. I informed him I will get the a ppointment back up. Called ([phone]) the psych hotline, they set the apt back up for 1015 as previously se t up. Brought the machine up, and the mother was not in the room. Called the hotline again to inform them nevermind again. Updated Dr Davalos. onver herb Transaction, Provider Unknown - 10/20/2017 9:30 AM PDT Nurse Progress Note by Lexii Castrejon RN at 10/20/17929 Author: Lexii Castrejon RN Service: (none) Author Type: Registered Nurse Filed: 10/20/17 668 Date of Service: 10/20/17929 Status: Signed Drafter (Cad) Electronic: Lexii Castrejon RN (Registered Nurse) Pt resting in bed with sedation on, see MAR for rates. Pt's mom continues to be irritable a nd accusatory with nursing staff. Encouraged self care and taking a break, offered empathy f or the stressful week she's having. Pt's mother eventually decided to leave for a while, "to take care of some things at home" but stated, "If I leave, I don't want him threatened whil e I'm gone. I don't want people yelling at him and being rough." Reassured Johnson that I wo uld be his nurse and I would care for him while she was gone, encouraged her to step away an d do some self care. Johnson left around 0945 and and pt rested, no more boluses were given while pt's mother not in the room. onver herb Transaction, Provider Unknown - 10/20/2017 8:15 AM PDT Nurse Progress Note by Lexii Castrejon RN at 10/20/17814 Author: Lexii Castrejon RN Service: (none) Author Type: Registered Nurse Filed: 10/20/17 1743 Date of Service: 10/20/17814 Status: Signed Drafter (Cad) Electronic: Lexii Castrejon RN (Registered Nurse) Pt awake and agitated with sedation unchanged, continuously trying to tongue out or pull ou t ETT. Throwing head around and trying to sit up Not following commands, not redirectable. M other at bedside, attempting to redirect pt. Re sedated pt with bolus 10 propofol and incre ased rate to 20mcg/kg/min. onver herb Transaction, Provider Unknown - 10/20/2017 7:45 AM PDT Nurse Progress Note by Lexii Castrejon RN at 10/20/17744 Author: Lexii Castrejon RN Service: (none) Author Type: Registered Nurse Filed: 10/20/17 0937 Date of Service: 10/20/17744 Status: Signed Drafter (Cad) Electronic: Lexii Castrejon RN (Registered Nurse) Pt's mother, Johnson, very agitated this morning c/o, "the etcher printed circuit boards nurse yelled at him. She was hateful. She hated him. I could hear it in her voice." Allowed Johnson to vent abou t the incident this morning and reinforced that I heard her concerns and offered empathy for this stressful experience. Reminded her that yesterday when he was thrashing around and 6 n urses where holding him down, I too was very direct and raised my voice to try and get his a ttention. The other nurse likely had the same response. Johnson stated, "No, she hates him." Suggested in the future when he is agitated, if she wants to be at bedside to redirect him, it would be helpful if she stood on the side opposite from the nurse and make sure the nurs e can get to the IV pumps. Johnson interrupted stating, "There you go assuming! You don't kn ow what you're talking about I was on the opposite side from the nurse! You don't know. You just assume! I was by the pumps, not the nurse! I know you nurses are all just going to have each other's backs! I know how it goes!" declined to argue the events of the morning with h er but did explain that my top priority today was to keep my patient safe, myself safe, and her safe. I let her know we were working on a safety plan so that we can safely get him extu bated. Breanne Shetty MD - 10/20/2017 7:16 AM PDT Progress Notes by Breanne Davalos MD at 10/20/17715 Author: Breanne Davalos MD Service: Water Safety Teacher Author Type: Physician Filed: 10/20/17911 Date of Service: 10/20/17715 Status: Signed Drafter (Cad) Electronic: Breanne Davalos MD (Physician) [facility] Service: Water Safety Teacher Progress Note Bravo Henry 37 y.o. Hospital Day: LOS: 6 days Post-Op Day: * No surgery found * Consulting Physicians Treatment Team: Admitting Provider: Deni Shearer MD SUBJECTIVE Patient Summary: Per Palmira Givens's H&P: "The patient is a 37 y.o. male with unknown history other than polysubstance abuse who presents as a transfer from [facility] Emergency Department. Per report the patient was in the process of incarceration and was no lisa to have altered mental status and began having active seizure activity described as pepe c clonic movements lasting approximately 45 minutes. He was transported to [facility] and was intubated for airway protection. He was given 1 gram keppra and ativan for seizu re activity and a lumbar puncture was performed with clear fluid that had no WBCs, glucose 7 5, and protein 28. He was started on ceftriaxone due to mild fever in the setting of altered mental status and leukocytosis. After initial evaluation, the patient was transferred to [facility] ICU for further evaluation and treatment. Of note, his drug screen revealed methamphetamine, amphetamine, MDMA, and THC." ICU Timeline: 10/14: ICU admission intubated on MV. 10/15: Extubated; remains on Precedex due to agitation 10/16: Required reintubation 10-17: seroquel started 10-18: woke up agitated, seroquel up to 100 bid, unasyn started for fever, leukocytosis a nd ett sceretions 10-19: psych consult, unasyn started for fever, leukocytosis and ett sceretions Events Overnight: Remains intubated, sedated and on MV, remains very aggressive not f ollowing commands off sedation. SCHEDULED MEDICATIONS ampicillin-sulbactam 3 g Intravenous Q6H chlorhexidine 15 mL Mouth/Throat BID docusate sodium 100 mg Oral BID Or docusate 100 mg Per OG Tube BID enoxaparin 40 mg Subcutaneous Q24H famotidine 20 mg Oral BID QUEtiapine 200 mg Oral BID CONTINUOUS INFUSIONS dexmedetomidine in NS 1.5 mcg/kg/hr (10/20/17630) fentaNYL in NS 5 mcg/mL 25 mcg/hr (10/18/17 194) midazolam in NS 10 mg/hr (10/20/17 0000) propofol 10 mcg/kg/min (10/20/17619) OBJECTIVE VITAL SIGNS Temp: [98.6 F (37 C)-100.1 F (37.8 C)] 98.8 F (37.1 C) Heart Rate: [69-119] 74 Resp: [10-33] 22 BP: (80-127)/(45-77) 105/60 FiO2 : [25 %] 25 % Intake/Output Summary (Last 24 hours) at 10/20/17715 Last data filed at 10/20/17619 Gross per 24 hour Intake 2941 ml Output 2585 ml Net 356 ml EXAM GEN: Intubated, Sedated, On MV, NEURO: PERRL, no facial asymmetry, moved all 4 and was agitated not following commands when relocation counselor sedation. HEENT: sclerae clear, nonicteric, oral mmm, pink NECK: trachea midline CV: RRR, S1S2, no murmur, rub or gallop, peripheral pulses palpable, cap refill < 3 seconds LUNGS: clear b/l diminished in bilateral bases, no wheezing, rales or rhonchi, symmetric ch est expansion on MV ABD: soft, nondistended, bowel sounds present EXTR: no edema, clubbing or cyanosis SKIN: warm, dry, no rash or mottling; small abrasion on face and left foot. LINES/TUBES: PIV, hollis (10/16), ETT/OGT (10/16) DATA Recent Labs Lab 10/20/17 0403 10/19/17 0404 10/18/17 0356 10/17/17 0415 WBC 10.43 14.11* 18.17* 6.94 RBC 4.13* 4.56 5.08 4.78 HGB 12.5* 13.6 15.1 14.4 HCT 36.8* 40.7 45.2 42.9 MCV 89.3 89.1 89.1 89.7 MCH 30.3 29.8 29.7 30.0 MCHC 34.0 33.4 33.3 33.5 RDW 50.8 51.2 53.8* 51.6 PLT 294 251 254 282 MPV 9.6 9.4 9.2 9.1 BANDSABS -- -- 2.18* -- NEUTROABS 7.11 10.23* -- 4.53 LYMPHSABS 1.05 1.24 -- 1.19 MONOSABS 1.59* 2.18* -- 0.90* BASOSABS 0.06 0.07 -- 0.05 EOSABS 0.61* 0.39 -- 0.28 MORPH -- -- RBC AND PLT MORPHOLOGY APPEAR NORMAL -- Recent Labs Lab 10/20/17 0403 10/19/17 0404 10/18/17 1908 10/18/17 0356 10/16/17 0407 NA 142 142 -- 141 < > 143 K 4.4 4.3 4.1 3.9 < > 4.0 CL 110* 110* -- 108 < > 109 CO2 25 24 -- 25 < > 24 ANIONGAP 11 12 -- 12 < > 14 GLUF 122* 107* -- 130* < > 101* BUN 13 8 -- 6* < > 10 CREATININE 0.7 0.8 -- 0.9 < > 1.0 BCR 19 10 -- 7 < > 10 CA 8.1* 7.7* -- 8.2* < > 8.4* ALB -- -- -- -- -- 3.3* PROT -- -- -- -- -- 7.7 BILITOT -- -- -- -- -- 0.7 ALT -- -- -- -- -- 33 AST -- -- -- -- -- 52* EGFR >60 >60 -- >60 < > >60 PHOS 4.0 2.9 -- 2.9 < > 3.2 MG 2.3 2.3 -- 1.9 < > 2.0 < > = values in this interval not displayed. No results for input(s): INR in the last 168 hours. IMAGING X-ray Chest 1 View Result Date: 10/16/2017 Tubes and lines in expected position. Lungs are clear. X-ray Chest 1 View Result Date: 10/16/2017 1. Tubes and lines in expected position. 18 9:35 AM X-ray Chest 1 View Result Date: 10/14/2017 1. Support lines and tubes are in satisfactory position. LEM LIST Principal Problem: Seizure (HCC) Active Problems: Polysubstance abuse Acute metabolic encephalopathy SIRS (systemic inflammatory response syndrome) (HCC) Resolved Problems: Bandemia ASSESSMENT & PLAN NEURO: Acute metabolic encephalopathy likely secondary to drug use and seizure. Supportive kelechi ures. PRN ativan for agitation or seizure activity. May need psych eval if he does not carlos r enough to exhibit decisional capability. Required sedation and intubation due to uncontro llable behaviors and risk of self harm due to encephalopathy. Polysubstance abuse: drug screen positive for MDMA, methamphetamines, amphetamines, and THC. Supportive care. Continue treating seizures with benzos if occurs, EEG is negative for se izures. If becomes hypertensive, use benzos as first line and avoid beta blockers. Seizures: most likely secondary to polysubstance use CT head negative, LP negative. EEG negative for epileptiform discharges. Unknown ETOH history: continue on CIWA, thiamine, and folic for now. ? Underlying psych disorder undiagnosed or untreated: increase seroquel to 200 bid. Tele psych consult. Will wake him up daily to assess his underlying neurological status CV: Hemodynamically stable. Monitor on telemetry. PULM: Required sedation and intubation due to severe agitation and to protect patient from jaimie f harm. Maintain lung protective vent strategy; wean FiO2 and PEEP as tolerated GI/NUTRITION: Start TF. RENAL/LYTES: Monitor renal function, electrolytes, and I/O. Avoid nephrotoxins, renally dose meds. Elevated CPK in the setting of seizure. Improving with hydration. Continue to monitor. ID: LP negative. unasyn started for fever, leukocytosis and ett sceretions on 10-19 HEME: Leukocytosis likely reactionary in setting of seizure. Unlikely infectious , but will ke ep a close look mainly for pulmonary sources. No acute issues. ENDO: No acute issues. MUSC/SKIN: Routine skin care as per nursing protocol Turn/reposition Q 2 hours while in bed PT/OT to assess/treat when appropriate PROPHYLAXIS: Stress ulcer prophylaxis: PPI DVT prophylaxis: Heparin SQ VAP bundle: chlorhexidine oral care, HOB >30 degrees Disposition: ICU plan of care as above. Code Status: Full Code *Please bill 55 minutes of critical care time spent evaluating the patient, reviewing the d donna and formulating a plan exclusive of all other procedures. BREANNE DAVALOS MD 10/20/2017 onversion Ching saction, Provider Unknown - 10/20/2017 5:15 AM PDTFormatting of this note might be differen t from the original. Nurse Progress Note by Demetra Brown RN at 10/20/17514 Author: Demetra Brown RN Service: (none) Author Type: Registered Nurse Filed: 10/21/17 0014 Date of Service: 10/20/17514 Status: Addendum Drafter (Cad) Electronic: Demetra Brown RN (Registered Nurse) Related Notes: Original Note by Demetra Brown RN (Registered Nurse) filed at 10/20/172001 One new PIV inserted into R FA with no issues. Upon attempting to start a second PIV on the pt's L arm, the pt became very agitated. Immediately discontinued attempt to start IV. Repl aced side rail and ensured pt's restraint was in place and tight. The pt was sitting up stra ight in bed, reaching and attempting to remove his ETT. At this time I could not leave the p t's L side to go to the R side of the bed where the IV pumps were to bolus the pt with sedat ion. Around this time, aJz Henry CNA entered the room. I asked that she please hold down t he pt's arms so I could get to the other side of the bed where the IV pump was. The pt's mot her was now awake and standing on the L side of the bed. At this point, the pt continued to reach for his ETT, coming very close to reaching it. In a loud voice, I told the pt to pleas e calm down and attempted to push his chest down onto the bed away from his ETT. The pt's mo ther then reached across me to try to touch the pt's arm/shoulder. I told the pt's mother th at she needed to back off so that I could calm him down. She stated, "I am the only person t hat can calm him down right now and you need to let me get to him." The pt continued to sit straight up in bed reaching for the ETT. I reiterated that the mother needed to back away fr om me and the pt. She continued to push against me, yelling at me that I was being mean to h er son and trying to hurt him. With help from 3 other staff members, we were able to return the pt's upper body to the bed and I was able to administer 2mg bolus of versed and a 15mcg bolus of propofol. Once the pt was no longer reaching for the ETT, I tried to explain to the mother that I was trying to keep the pt from removing his ETT again, that it was a matter o f life and that his tube remain in place and everything we were doing was for his safe ty. She then stated that I was being hateful and mean to her son and that I was provoking hi m to act out and try to pull out his tube. I again tried to explain the importance of the ET T remaining in place and that I was trying to make sure her son stayed safe. She interrupted me, very upset and continued to say that I was provoking him, that I had no bedside manner and I was mean. I ensured the pt's restraints were tight, turned off the light and left the room. The pt's VS were stable at this time. sr community manager notified of situation. No other visito rs were present in the room at any time other than the pt's mother and the pt's "aunt." The aunt spoke with Dr. Hernandez and stated that her roommate, the pt's uncle, was "drunk and sle eping out in the car." The pt's uncle never visited the pt's room on this RN's shift. onver herb Transaction, Provider Unknown - 10/19/2017 11:00 PM PDT Nurse Progress Note by Demerta Brown RN at 10/19/172299 Author: Demetra Brown RN Service: (none) Author Type: Registered Nurse Filed: 10/20/171938 Date of Service: 10/19/172299 Status: Signed Drafter (Cad) Electronic: Demetra Brown RN (Registered Nurse) Pt's Aunt and mother are at the BS visiting the pt. Pt's Aunt rubbing the pt's head, "tickl ing" his feet and talking in a loud voice. I introduced myself as the RN for the evening and explained the ICU visitation policy (that after 2100, only one person is allowed to visit) and that we try to follow a day/night policy for the pt's which means little to no stimulati on after 2200 to promote rest. The mother and aunt explained that the aunt had just arrived from [place], that she would only be staying a couple of minutes and then she would leave. This RN left the room to gather the pt's medications. Upon returning to the room, the pt's a unt was sternal rubbing the pt attempting to wake him. I asked that she please stop doing th at as the pt does not need to be woken up at this time. The aunt said she was leaving then. The pt then became very agitated, requiring a bolus dose of Versed of 2mg. The pt eventually calmed but then his SBP was in the 70s. The BP eventually returned to a SBP in the 90s and a MAP >65. Dr. Hernandez notified of drop in BP and incident with the aunt sternal rubbing the pt. Upon return to the room, the pt's mother stated, "I'm sorry she did that, I don't know why she did that." I explained to her again the need for little stimulation at night to saul p the pt's days and nights straight and that everything we were doing was for the safety and care of the pt. She stated she understood. Provided mother with a water pitcher and blanket . No further questions. onver herb Transaction, Provider Unknown - 10/19/2017 10:28 AM PDT Case Management by Julia Oswald RN at 10/19/17 1028 Author: Julia Oswald RN Service: (none) Author Type: Registered Nurse Filed: 10/19/17 1032 Date of Service: 10/19/171027 Status: Signed Drafter (Cad) Electronic: Julia Oswald RN (Registered Nurse) Morning rounds with Dr Davalos: Plan of care: started IV ABX due to pneumonia, still intubated and sedated. Hollis in place , tube feeds, restraints. Sedation holiday, lightening and changing sedation. Call tele psych tomorrow recommendations. Breanne Shetty MD - 10/19/2017 8:15 AM PDT Progress Notes by Breanne Davalos MD at 10/19/17814 Author: Breanne Davalos MD Service: Water Safety Teacher Author Type: Physician Filed: 10/19/17821 Date of Service: 10/19/17814 Status: Addendum Drafter (Cad) Electronic: Breanne Davalos MD (Physician) Related Notes: Original Note by Breanne Davalos MD (Physician) filed at 10/19/17 0822 [facility] Service: Water Safety Teacher Progress Note Barvo Henry 37 y.o. Hospital Day: LOS: 5 days Post-Op Day: * No surgery found * Consulting Physicians Treatment Team: Admitting Provider: Deni Shearer MD SUBJECTIVE Patient Summary: Per Palmira Givens's H&P: "The patient is a 37 y.o. male with unknown history other than polysubstance abuse who presents as a transfer from [facility] Emergency Department. Per report the patient was in the process of incarceration and was no lisa to have altered mental status and began having active seizure activity described as pepe c clonic movements lasting approximately 45 minutes. He was transported to [facility] and was intubated for airway protection. He was given 1 gram keppra and ativan for seizu re activity and a lumbar puncture was performed with clear fluid that had no WBCs, glucose 7 5, and protein 28. He was started on ceftriaxone due to mild fever in the setting of altered mental status and leukocytosis. After initial evaluation, the patient was transferred to [facility] ICU for further evaluation and treatment. Of note, his drug screen revealed methamphetamine, amphetamine, MDMA, and THC." ICU Timeline: 10/14: ICU admission intubated on MV. 10/15: Extubated; remains on Precedex due to agitation 10/16: Required reintubation 10-17: seroquel started 10-18: woke up agitated, seroquel up to 100 bid, unasyn started for fever, leukocytosis a nd ett sceretions Events Overnight: Remains intubated, sedated and on MV, unasyn started for fever, mikayla kocytosis and ett sceretions SCHEDULED MEDICATIONS ampicillin-sulbactam 3 g Intravenous Q6H chlorhexidine 15 mL Mouth/Throat BID docusate sodium 100 mg Oral BID Or docusate 100 mg Per OG Tube BID enoxaparin 40 mg Subcutaneous Q24H famotidine 20 mg Oral BID QUEtiapine 100 mg Oral BID CONTINUOUS INFUSIONS fentaNYL in NS 5 mcg/mL 25 mcg/hr (10/18/17 194) lactated ringers 75 mL/hr at 10/19/17 0718 midazolam in NS 2 mg/hr (10/19/17 0047) propofol 30 mcg/kg/min (10/19/17 0718) OBJECTIVE VITAL SIGNS Temp: [99 F (37.2 C)-100.6 F (38.1 C)] 100.1 F (37.8 C) Heart Rate: [83-110] 93 Resp: [17-24] 18 BP: (92-139)/(53-84) 118/69 FiO2 : [25 %] 25 % Intake/Output Summary (Last 24 hours) at 10/19/17 0822 Last data filed at 10/19/17 0800 Gross per 24 hour Intake 4168.34 ml Output 2475 ml Net 1693.34 ml EXAM GEN: Intubated, Sedated, On MV, NEURO: PERRL, no facial asymmetry, moved all 4 and was agitated not following commands when relocation counselor sedation. HEENT: sclerae clear, nonicteric, oral mmm, pink NECK: trachea midline CV: RRR, S1S2, no murmur, rub or gallop, peripheral pulses palpable, cap refill < 3 seconds LUNGS: clear b/l diminished in bilateral bases, no wheezing, rales or rhonchi, symmetric ch est expansion on MV ABD: soft, nondistended, bowel sounds present EXTR: no edema, clubbing or cyanosis SKIN: warm, dry, no rash or mottling; small abrasion on face and left foot. LINES/TUBES: PIV, hollis (10/16), ETT/OGT (10/16) DATA Recent Labs Lab 10/19/17 0404 10/18/17 0356 10/17/17 0415 10/16/17 0407 WBC 14.11* 18.17* 6.94 8.64 RBC 4.56 5.08 4.78 5.15 HGB 13.6 15.1 14.4 15.5 HCT 40.7 45.2 42.9 46.0 MCV 89.1 89.1 89.7 89.3 MCH 29.8 29.7 30.0 30.1 MCHC 33.4 33.3 33.5 33.7 RDW 51.2 53.8* 51.6 52.9 PLT 251 254 282 284 MPV 9.4 9.2 9.1 9.4 BANDSABS -- 2.18* -- -- NEUTROABS 10.23* -- 4.53 5.83 LYMPHSABS 1.24 -- 1.19 1.60 MONOSABS 2.18* -- 0.90* 0.86* BASOSABS 0.07 -- 0.05 0.06 EOSABS 0.39 -- 0.28 0.29 MORPH -- RBC AND PLT MORPHOLOGY APPEAR NORMAL -- -- Recent Labs Lab 10/19/17 0404 10/18/17 1908 10/18/17 0356 10/17/17 0828 10/17/17 0415 10/16/17 0407 NA 142 -- 141 -- -- 143 -- 143 K 4.3 4.1 3.9 < > -- 3.6 < > 4.0 CL 110* -- 108 -- -- 108 -- 109 CO2 24 -- 25 -- -- 24 -- 24 ANIONGAP 12 -- 12 -- -- 15 -- 14 GLUF 107* -- 130* -- -- 104* -- 101* BUN 8 -- 6* -- -- 10 -- 10 CREATININE 0.8 -- 0.9 -- -- 0.9 -- 1.0 BCR 10 -- 7 -- -- 11 -- 10 CA 7.7* -- 8.2* -- -- 7.7* -- 8.4* ALB -- -- -- -- -- -- -- 3.3* PROT -- -- -- -- -- -- -- 7.7 BILITOT -- -- -- -- -- -- -- 0.7 ALT -- -- -- -- -- -- -- 33 AST -- -- -- -- -- -- -- 52* EGFR >60 -- >60 -- -- >60 -- >60 PHOS 2.9 -- 2.9 -- -- 4.1 < > 3.2 MG 2.3 -- 1.9 -- 2.4 2.1 < > 2.0 < > = values in this interval not displayed. No results for input(s): INR in the last 168 hours. IMAGING X-ray Chest 1 View Result Date: 10/16/2017 Tubes and lines in expected position. Lungs are clear. X-ray Chest 1 View Result Date: 10/16/2017 1. Tubes and lines in expected position. X-ray Chest 1 View Result Date: 10/14/2017 1. Support lines and tubes are in satisfactory position. LEM LIST Principal Problem: Seizure (HCC) Active Problems: Polysubstance abuse Acute metabolic encephalopathy SIRS (systemic inflammatory response syndrome) (HCC) Resolved Problems: Bandemia ASSESSMENT & PLAN NEURO: Acute metabolic encephalopathy likely secondary to drug use and seizure. Supportive kelechi ures. PRN ativan for agitation or seizure activity. May need psych eval if he does not carlos r enough to exhibit decisional capability. Required sedation and intubation due to uncontro llable behaviors and risk of self harm due to encephalopathy. Polysubstance abuse: drug screen positive for MDMA, methamphetamines, amphetamines, and THC. Supportive care. Continue treating seizures with benzos if occurs, EEG is negative for se izures. If becomes hypertensive, use benzos as first line and avoid beta blockers. Seizures: most likely secondary to polysubstance use CT head negative, LP negative. EEG negative for epileptiform discharges. Unknown ETOH history: continue on CIWA, thiamine, and folic for now. ? Underlying psych disorder undiagnosed or untreated: increase seroquel to 100 bid. Will wake him up daily to assess his underlying neurological status CV: Hemodynamically stable. Monitor on telemetry. PULM: Required sedation and intubation due to severe agitation and to protect patient from jaimie f harm. Maintain lung protective vent strategy; wean FiO2 and PEEP as tolerated GI/NUTRITION: Start TF. RENAL/LYTES: Monitor renal function, electrolytes, and I/O. Avoid nephrotoxins, renally dose meds. Elevated CPK in the setting of seizure. Improving with hydration. Continue to monitor. ID: LP negative. unasyn started for fever, leukocytosis and ett sceretions on 10-19 HEME: Leukocytosis likely reactionary in setting of seizure. Unlikely infectious , but will ke ep a close look mainly for pulmonary sources. No acute issues. ENDO: No acute issues. MUSC/SKIN: Routine skin care as per nursing protocol Turn/reposition Q 2 hours while in bed PT/OT to assess/treat when appropriate PROPHYLAXIS: Stress ulcer prophylaxis: PPI DVT prophylaxis: Heparin SQ VAP bundle: chlorhexidine oral care, HOB >30 degrees Disposition: ICU plan of care as above. Code Status: Full Code *Please bill 55 minutes of critical care time spent evaluating the patient, reviewing the d donna and formulating a plan exclusive of all other procedures. BREANNE DAVALOS MD 10/19/2017 onversion Ching saction, Provider Unknown - 10/19/2017 7:45 AM PDTFormatting of this note might be differen t from the original. Nurse Progress Note by Juan Diego Galindo RN at 10/19/17 0745 Author: Juan Diego Galindo RN Service: Water Safety Teacher Author Type: Registered Nurse Filed: 10/19/17 0747 Date of Service: 10/19/17 0745 Status: Signed Drafter (Cad) Electronic: Juan Diego Galindo RN (Registered Nurse) [id number] end of shift audit competed. Restraints:bilateral wrist restraints in place with q 2 hr charting Blood admin: none Protocols followed: Electrolyte, Restraints, Oral care Q4, Parameter medications: Versed, Propofol, Fentanyl titrations within orders Signed and held orders: None Care Plans:up to date with current end dates and relevant to pt diagnosis, Other Parameter medications in 24 hrs: see teresa, Flu Vaccine:Not in season onver herb Transaction, Provider Unknown - 10/18/2017 10:08 AM PDT Case Management by Julia Oswald RN at 10/18/17 1008 Author: Julia Oswald RN Service: (none) Author Type: Registered Nurse Filed: 10/18/17 1013 Date of Service: 10/18/17 1008 Status: Signed Drafter (Cad) Electronic: Julia Oswald RN (Registered Nurse) Morning rounds with Dr Davalos: Plan of care: EEG done prior, showed no seizures. Nursing and Dr Davalos believe his jerki ng movements are more related to withdrawal. WBC increased, no fever. Pt still intubated a nd sedated. Mother joined rounds. onver herb Transaction, Provider Unknown - 10/18/2017 8:50 AM PDT Case Management by Julia Oswald RN at 10/18/17849 Author: Julia Oswald RN Service: (none) Author Type: Registered Nurse Filed: 10/18/17917 Date of Service: 10/18/17849 Status: Signed Drafter (Cad) Electronic: Julia Oswald RN (Registered Nurse) Spoke to Brittney Phillips from [facility] about seeing pt. Breanne Shetty MD - 10/18/2017 8:20 AM PDT Progress Notes by Breanne Davalos MD at 10/18/17819 Author: Breanne Davalos MD Service: Water Safety Teacher Author Type: Physician Filed: 10/18/17829 Date of Service: 10/18/17819 Status: Signed Drafter (Cad) Electronic: Breanne Davalos MD (Physician) [facility] Service: Water Safety Teacher Progress Note Bravo Henry 37 y.o. Hospital Day: LOS: 4 days Post-Op Day: * No surgery found * Consulting Physicians Treatment Team: Admitting Provider: Deni Shearer MD SUBJECTIVE Patient Summary: Per Palmira Givens's H&P: "The patient is a 37 y.o. male with unknown history other than polysubstance abuse who presents as a transfer from [facility] Emergency Department. Per report the patient was in the process of incarceration and was no lisa to have altered mental status and began having active seizure activity described as pepe c clonic movements lasting approximately 45 minutes. He was transported to [facility] and was intubated for airway protection. He was given 1 gram keppra and ativan for seizu re activity and a lumbar puncture was performed with clear fluid that had no WBCs, glucose 7 5, and protein 28. He was started on ceftriaxone due to mild fever in the setting of altered mental status and leukocytosis. After initial evaluation, the patient was transferred to [facility] ICU for further evaluation and treatment. Of note, his drug screen revealed methamphetamine, amphetamine, MDMA, and THC." ICU Timeline: 10/14: ICU admission intubated on MV. 10/15: Extubated; remains on Precedex due to agitation 10/16: Required reintubation 10-17: seroquel started Events Overnight: Remains intubated, sedated and on MV SCHEDULED MEDICATIONS docusate sodium 100 mg Oral BID Or docusate 100 mg Per OG Tube BID enoxaparin 40 mg Subcutaneous Q24H famotidine 20 mg Oral BID QUEtiapine 50 mg Oral BID CONTINUOUS INFUSIONS lactated ringers 75 mL/hr at 10/17/17 2250 midazolam in NS 20 mg/hr (10/18/17 0500) propofol 50 mcg/kg/min (10/18/17 0440) OBJECTIVE VITAL SIGNS Temp: [98.5 F (36.9 C)-100 F (37.8 C)] 99.9 F (37.7 C) Heart Rate: [85-125] 104 Resp: [18-35] 18 BP: (93-159)/(50-101) 133/85 FiO2 : [25 %] 25 % Intake/Output Summary (Last 24 hours) at 10/18/17 0820 Last data filed at 10/18/17 0500 Gross per 24 hour Intake 4727.1 ml Output 2870 ml Net 1857.1 ml EXAM GEN: Intubated, Sedated, On MV, sweating a bit NEURO: PERRL, no facial asymmetry, heavily sedated for medical reason so neuro exam is diff icult now, will lighten the sedation later today. HEENT: sclerae clear, nonicteric, oral mmm, pink NECK: trachea midline CV: RRR, S1S2, no murmur, rub or gallop, peripheral pulses palpable, cap refill < 3 seconds LUNGS: clear b/l diminished in bilateral bases, no wheezing, rales or rhonchi, symmetric ch est expansion on MV ABD: soft, nondistended, bowel sounds present EXTR: no edema, clubbing or cyanosis SKIN: warm, dry, no rash or mottling; small abrasion on face and left foot. LINES/TUBES: PIV, hollis (10/16), ETT/OGT (10/16) DATA Recent Labs Lab 10/18/17 0356 10/17/17 0415 10/16/17 0407 10/15/17 0402 WBC 18.17* 6.94 8.64 9.42 RBC 5.08 4.78 5.15 4.60 HGB 15.1 14.4 15.5 13.8 HCT 45.2 42.9 46.0 41.2 MCV 89.1 89.7 89.3 89.6 MCH 29.7 30.0 30.1 29.9 MCHC 33.3 33.5 33.7 33.4 RDW 53.8* 51.6 52.9 51.2 PLT 254 282 284 262 MPV 9.2 9.1 9.4 9.0 BANDSABS 2.18* -- -- -- NEUTROABS -- 4.53 5.83 6.77 LYMPHSABS -- 1.19 1.60 1.34 MONOSABS -- 0.90* 0.86* 1.10* BASOSABS -- 0.05 0.06 0.06 EOSABS -- 0.28 0.29 0.14 MORPH RBC AND PLT MORPHOLOGY APPEAR NORMAL -- -- -- Recent Labs Lab 10/18/17 0356 10/17/17 1208 10/17/17 0828 10/17/17 0415 10/16/17 1753 10/16/17 0407 NA 141 -- -- 143 -- -- 143 K 3.9 4.6 -- 3.6 3.2* < > 4.0 CL 108 -- -- 108 -- -- 109 CO2 25 -- -- 24 -- -- 24 ANIONGAP 12 -- -- 15 -- -- 14 GLUF 130* -- -- 104* -- -- 101* BUN 6* -- -- 10 -- -- 10 CREATININE 0.9 -- -- 0.9 -- -- 1.0 BCR 7 -- -- 11 -- -- 10 CA 8.2* -- -- 7.7* -- -- 8.4* ALB -- -- -- -- -- -- 3.3* PROT -- -- -- -- -- -- 7.7 BILITOT -- -- -- -- -- -- 0.7 ALT -- -- -- -- -- -- 33 AST -- -- -- -- -- -- 52* EGFR >60 -- -- >60 -- -- >60 PHOS 2.9 -- -- 4.1 2.0* < > 3.2 MG 1.9 -- 2.4 2.1 1.5* < > 2.0 < > = values in this interval not displayed. No results for input(s): INR in the last 168 hours. IMAGING X-ray Chest 1 View Result Date: 10/16/2017 Tubes and lines in expected position. Lungs are clear. X-ray Chest 1 View Result Date: 10/16/2017 1. Tubes and lines in expected position. 18 9:35 AM X-ray Chest 1 View Result Date: 10/14/2017 1. Support lines and tubes are in satisfactory position. LEM LIST Principal Problem: Seizure (HCC) Active Problems: Polysubstance abuse Acute metabolic encephalopathy Resolved Problems: Bandemia ASSESSMENT & PLAN NEURO: Acute metabolic encephalopathy likely secondary to drug use and seizure. Supportive kelechi ures. PRN ativan for agitation or seizure activity. May need psych eval if he does not carlos r enough to exhibit decisional capability. Required sedation and intubation due to uncontro llable behaviors and risk of self harm due to encephalopathy. Polysubstance abuse: drug screen positive for MDMA, methamphetamines, amphetamines, and THC. Supportive care. Continue treating seizures with benzos if occurs, EEG is negative for se izures. If becomes hypertensive, use benzos as first line and avoid beta blockers. Seizures: most likely secondary to polysubstance use CT head negative, LP negative. EEG negative for epileptiform discharges. Unknown ETOH history: continue on CIWA, thiamine, and folic for now. ? Underlying psych disorder undiagnosed or untreated: start seroquel for now. Will wake him up today to assess his underlying neurological status CV: Hemodynamically stable. Monitor on telemetry. PULM: Required sedation and intubation due to severe agitation and to protect patient from jaimie f harm. Maintain lung protective vent strategy; wean FiO2 and PEEP as tolerated GI/NUTRITION: Start TF. RENAL/LYTES: Monitor renal function, electrolytes, and I/O. Avoid nephrotoxins, renally dose meds. Elevated CPK in the setting of seizure. Improving with hydration. Continue to monitor. ID: No acute issues. Given 1 dose of ceftriaxone at [facility]. Monitor off ABX. LP negative. HEME: Leukocytosis likely reactionary in setting of seizure. Unlikely infectious , but will ke ep a close look mainly for pulmonary sources. No acute issues. ENDO: No acute issues. MUSC/SKIN: Routine skin care as per nursing protocol Turn/reposition Q 2 hours while in bed PT/OT to assess/treat when appropriate PROPHYLAXIS: Stress ulcer prophylaxis: PPI DVT prophylaxis: Heparin SQ VAP bundle: chlorhexidine oral care, HOB >30 degrees Disposition: ICU plan of care as above. Code Status: Full Code *Please bill 55 minutes of critical care time spent evaluating the patient, reviewing the d donna and formulating a plan exclusive of all other procedures. BREANNE DAVALOS MD 10/18/2017 onversion Ching saction, Provider Unknown - 10/18/2017 6:51 AM PDTFormatting of this note might be differen t from the original. Nurse Progress Note by Chris Padilla RN at 10/18/17650 Author: Chris Padilla RN Service: Water Safety Teacher Author Type: Registered Nurse Filed: 10/18/1753 Date of Service: 10/18/17650 Status: Signed Drafter (Cad) Electronic: Chris Padilla RN (Registered Nurse) [phone] end of shift audit competed. Restraints:bilateral wrist restraints in place with q 2 hr charting, Blood admin:none given , Protocols followed:restraint protocol and electrolyte protocol, Parameter medications:for behavioral sedation, Signed and held orders:none to release, Care Plans:up to date with curr ent end dates and relevant to pt diagnosis, Other Parameter medications in 24 hrs:ativan see mar, Flu Vaccine:out of season CHRIS PADILLA onver herb Transaction, Provider Unknown - 10/18/2017 4:45 AM PDT Nurse Progress Note by Chris Padilla RN at 10/18/17444 Author: Chris Padilla RN Service: Water Safety Teacher Author Type: Registered Nurse Filed: 10/18/17 0554 Date of Service: 10/18/17444 Status: Addendum Drafter (Cad) Electronic: Chris Padilla RN (Registered Nurse) Related Notes: Original Note by Chris Padilla RN (Registered Nurse) filed at 10/18/1744410/18/17314 Vitals Heart Rate 121 Resp 23 BP (!) 156/95 NIBP Mean 119 mmHg MEWS MEWS Score 4 Oxygen Therapy SpO2 99 % SpO2 Pulse 121 FiO2 25 % ET CO2 35 mmHg Pt again had another episode of tremoring. MD at bedside to assess, No ativan given this ti me and tremors seemed to resolve on their own within an hours time. CHRIS PADILLA onver herb Transaction, Provider Unknown - 10/18/2017 1:40 AM PDT Nurse Progress Note by Chris Padilla RN at 10/18/17139 Author: Chris Padilla RN Service: Water Safety Teacher Author Type: Registered Nurse Filed: 10/18/17143 Date of Service: 10/18/17139 Status: Signed Drafter (Cad) Electronic: Chris Padilla RN (Registered Nurse) 10/18/17 0121 Vitals Heart Rate 119 Resp 28 MEWS MEWS Score 4 Oxygen Therapy SpO2 96 % SpO2 Pulse 119 FiO2 25 % ET CO2 38 mmHg Pt shaking and intermittently extensor posturing in all extreme ties spontaneously. RN ente red room to assess pt after she saw his resp rate on the vent go up to 27 which is unsual fo r this pt on his high levels of sedation. What pt was doing bordered on rigors or seizure ac tivity, therefore MD was called to bedside to assess pt. Per MAR RN administered 4mg Ativan IVP, and bolused propofol by 20x1. Pt resp rate and HR decreased, as did BP (see charting). Pupils assessed with MD at time of shaking, noted to be PERRLA 3mm, no fixation, deviation o r nystagmus noted. CHRIS PADILLA onver herb Transaction, Provider Unknown - 10/17/2017 4:24 PM PDT Case Management by HENRY Lou at 10/17/17 1628 Author: HENRY Lou Service: (none) Author Type: Fruit Peeler Filed: 10/17/17 2988 Date of Service: 10/17/171623 Status: Signed Drafter (Cad) Electronic: HENRY Lou (Fruit Peeler) 10/17/17 162 Discharge Planning Evaluation Admitting Diagnosis seizure Readmission No Living Arrangements Parent Support Systems Parent;Family members Type of Residence Private residence House type Mobile home Bathrooms on 1st Floor 1-Full Independent with ADL's Yes Independent with Mobility Yes Home Care Services No Caregiver after Discharge No Mental Status Unable to answer questions (vented) Prior functional status Independent Power of Vacuum Furnace Operator No (Discussed importance of POA with mother. Will dicuss with pt when extubated) Anticipated Discharge Plan Plan communicated to patient/family Yes Resources Financial concerns No Transportation issues No Patient/Family concerns Yes (Drug dependence and legal issues) Anticipated Disposition Facility Type Home Met with: pt's mother Johnson Roman [phone] and discussed discharge planning, Pt is a 37 y.o., male admitted with seizure. Pt was being booked at [facility] when he had a seizure. Jaleesa t to [facility] and transferred to [facility]. Pt has positive tox screen for meth, MJ, MDMA. Per mother, pt has been using drugs since his 20's. He has been in trouble with the law si nce his teens having been in juvenile jail when he was young. Mother states that pt has spent most of his adult life incarcerated. He was recently relea sed from [facility] in May 2017. Pt lives with his mother in a mobile home. He is independent. Does not have a DL. Pt has never been in a MH or drug treatment facility. Pt has 2 children ages 16 and 12. He is a member of the [employer] and is a patient at [facility] in [place]. Patient's PCP is: No primary care provider on file. No PCP. Patient's insurance: uninsured Coverage concerns: yes Medication coverage/concerns: yes Community resources utilized / needed: drug and etoh treatment. Referral made to [facility]. Assistance in transportation: Mother can transport home Identification of any specific education / training: none Barriers to Discharge / Alternative housing needed: none Anticipated DCP: Likely home with mother when medically stable. FARHAD DA SILVA onver herb Transaction, Provider Unknown - 10/17/2017 1:45 PM PDT Case Management by HENRY Lou at 10/17/17 1345 Author: HENRY Lou Service: (none) Author Type: Fruit Peeler Filed: 10/17/17 1349 Date of Service: 10/17/17 1345 Status: Signed Drafter (Cad) Electronic: HENRY Lou (Fruit Peeler) Received t/c from Conchita who informed that she was able to get a hold of pt's mother. Pt's mother is Johnson Roman. I spoke with her and gave basic info about pt's admit. She will be here in about 1 hour. Johnson Roman- [phone]. onver herb Transaction, Provider Unknown - 10/17/2017 10:14 AM PDT Case Management by Julia Oswald RN at 10/17/17 1014 Author: Julia Oswald RN Service: (none) Author Type: Registered Nurse Filed: 10/17/17 1020 Date of Service: 10/17/17 1014 Status: Signed Drafter (Cad) Electronic: Julia Oswald RN (Registered Nurse) Morning rounds with Dr Davalos: Talked about plan of care. Re-intubated yesterday after self extubating. Aggressive per n ursing. Keeping pt intubated and sedated today due to agitation. Pt receiving tube feeds-t olerating, urine output good. onver herb Transaction, Provider Unknown - 10/17/2017 9:34 AM PDT Case Management by HENRY Lou at 10/17/17933 Author: HENRY Lou Service: (none) Author Type: Fruit Peeler Filed: 10/17/17 1058 Date of Service: 10/17/17933 Status: Addendum Drafter (Cad) Electronic: HENRY Lou (Fruit Peeler) Related Notes: Original Note by HENRY Lou (Fruit Peeler) filed at 10/17/17934 Received return call from [facility] Angela Meza ([phone]). Returned call and left message a gain as I got voicemail. Await return call. Attended morning rounds. Re-intubated yesterday after self extubating. Given names of peopl e that pt mentioned to RN before being intubated. Called "Conchita" at [phone] and left message. She supposedly is the mother of pt's child. Called "Evelyne" at [phone] left a message though the recording only informed that it was "[place]". Called another number for Evelyne [phone] which has been busy every time I've called. I looked up pt's GF/MOB on Facebook and found that she has 5 accounts. I wrote a short mes abiel on each account requesting a phone call lisa. FB account states that GF lives in [place], [place] so I called 411. No person with that name in [place]. FB also states that GF lives in [place], [place] however when I called [phone] they stated that [place] is not a city in [place]. onver herb Transaction, Provider Unknown - 10/17/2017 8:57 AM PDT Progress Notes by Jd Mcnulty RD at 10/17/17856 Author: Jd Mcnulty RD Service: (none) Author Type: Registered Dietitian Filed: 10/17/17856 Date of Service: 10/17/17856 Status: Signed Drafter (Cad) Electronic: Jd Mcnulty RD (Registered Dietitian) 10/17/17847 Subjective Timepoint Admit (started on TF. ) Pt c/o Pt admitted for seizure, acute metabolic encephalopathy, poly substance abuse, is cu rrently intubated, sedated on versed and propofol. TF has been started, Isosource 1.5 runnin g at 50 ml/hr water flushes 30 ml q 4 hrs. Reported by RN Diet Experience Self-selected diet(s) followed Unable to obtain at this time, no family present. Fluid / Beverage Intake Oral Fluids Amount NPO Food Intake Type of Food / Meals NPO Enteral Nutrition Intake Access OG tube. Parenteral Nutrition Intake Rate/Solution LR running at 75 ml/hr. Propofol running at 19.5 ml/hr provides approx 515 abel al/day. Micronutrient Intake Vitamin Intake Multivitamin;Folate;Thiamin Mineral / Element Intake Multi-mineral;Iron Anthropometrics Weight change Wt is up 1.5 kg since admit. According to I/O's is approx + 3.6 L of fluid. A dmit wt 64.9 kg, pt is 89% IBW, BMI 21.1 wnl. Biochemical data, medical tests, and procedures reviewed Biochemical data, medical tests, and procedures reviewed Labs reviewed. Estimated Energy Needs Total Energy Estimated Needs 1947 - 2271 kcal/day. Method for Estimating Needs 30 - 35 kcal/kg/admit wt 64.9 kg Estimated Protein Needs Total Protein Estimated Needs 78 - 97 g protein/day. Method for Estimating Needs 1.2 - 1.5 g pro/kg/admit wt 64.9 kg. Recommendations Recommended energy needs Recommend increasing TF of Isosurce 1.5 to goal rate of 55 ml/hr ( x20hr) to provide 1650 kcal, 75 g protein, 1100 ml TV, and 840 ml free water. In addition ad d 1 scoop of beneprotein TID in water flushes for an extra 75 kcal, 18 g protein. Overall TF , beneprotein, and propofol will provide 2240 kcal, 93 g protein which supplies 34.5 kcal/kg and 1.4 g pro/kg based on admit wt. Further nutrition recs to follow per protocol. Nutritional Risk Nutritional risk High Follow up date 10/20/[address] onver herb Transaction, Provider Unknown - 10/17/2017 6:39 AM PDT Nurse Progress Note by Chris aPdilla RN at 10/17/17638 Author: Chris Padilla RN Service: Water Safety Teacher Author Type: Registered Nurse Filed: 10/17/17640 Date of Service: 10/17/17638 Status: Signed Drafter (Cad) Electronic: Chris Padilla RN (Registered Nurse) [phone] end of shift audit competed. Restraints:ordered and in place; charting current, Blood admin:not applicable, Protocols fo llowed:electrolyte, Parameter medications:versed and propofol see mar for titrations, Signed and held orders:not applicable, Care Plans:in place with up to date completion dates releva nt to pt diagnosis, Other Parameter medications in 24 hrs:yes, Flu Vaccine:out of season CHRIS PADILLA Jayjay Jack ARNP - 10/17/2017 1:37 AM PDTFormatting of this note might be different from th e original. Progress Notes by LOLLY Samaniego at 10/17/17136 Author: LOLLY Samaniego Service: Water Safety Teacher Author Type: Advanced Registered Mickey se Practitioner Filed: 10/17/17532 Date of Service: 10/17/17136 Status: Signed Drafter (Cad) Electronic: LOLLY Samaniego (Advanced Registered Nurse Practitioner) [facility] Service: Water Safety Teacher Progress Note Bravo Henry 37 y.o. Hospital Day: LOS: 3 days Post-Op Day: * No surgery found * Consulting Physicians Treatment Team: Admitting Provider: Deni Shearer MD SUBJECTIVE Patient Summary: Per Palmira Givens's H&P: "The patient is a 37 y.o. male with unknown history other than polysubstance abuse who presents as a transfer from [facility] Emergency Department. Per report the patient was in the process of incarceration and was no lisa to have altered mental status and began having active seizure activity described as pepe c clonic movements lasting approximately 45 minutes. He was transported to [facility] and was intubated for airway protection. He was given 1 gram keppra and ativan for seizu re activity and a lumbar puncture was performed with clear fluid that had no WBCs, glucose 7 5, and protein 28. He was started on ceftriaxone due to mild fever in the setting of altered mental status and leukocytosis. After initial evaluation, the patient was transferred to [facility] ICU for further evaluation and treatment. Of note, his drug screen revealed methamphetamine, amphetamine, MDMA, and THC." ICU Timeline: 10/14: ICU admission intubated on MV. 10/15: Extubated; remains on Precedex due to agitation 10/16: Required reintubation Events Overnight: Remains intubated, sedated and on MV SCHEDULED MEDICATIONS docusate sodium 100 mg Oral BID Or docusate 100 mg Per OG Tube BID enoxaparin 40 mg Subcutaneous Q24H multivitamin & minerals w iron/FA 1 tablet Oral Daily with breakfast Or folic acid (FOLVITE) IVPB 1 mg Intravenous Daily with breakfast thiamine 100 mg Oral Daily Or thiamine (VITAMIN B1) IVPB 100 mg Intravenous Daily CONTINUOUS INFUSIONS dexmedetomidine in NS Stopped (10/16/17 1015) lactated ringers midazolam in NS 20 mg/hr (10/17/17 0154) propofol 50 mcg/kg/min (10/17/17 0517) OBJECTIVE VITAL SIGNS Temp: [98.1 F (36.7 C)-100 F (37.8 C)] 100 F (37.8 C) Heart Rate: [56-103] 102 Resp: [18-28] 18 BP: (78-159)/(48-107) 114/61 FiO2 : [25 %-40 %] 25 % Intake/Output Summary (Last 24 hours) at 10/17/17 0532 Last data filed at 10/17/17 0517 Gross per 24 hour Intake 4521.7 ml Output 1364 ml Net 3157.7 ml EXAM GEN: Intubated, Sedated, On MV NEURO: PERRL, no facial asymmetry, moves all extremities but not following commands HEENT: sclerae clear, nonicteric, oral mmm, pink NECK: trachea midline CV: RRR, S1S2, no murmur, rub or gallop, peripheral pulses palpable, cap refill < 3 seconds LUNGS: clear b/l diminished in bilateral bases, no wheezing, rales or rhonchi, symmetric ch est expansion on MV ABD: soft, nondistended, bowel sounds present EXTR: no edema, clubbing or cyanosis SKIN: warm, dry, no rash or mottling; small abrasion on face and left foot. LINES/TUBES: PIV, hollis (10/16), ETT/OGT (10/16) DATA Recent Labs Lab 10/17/17 0415 10/16/17 0407 10/15/17 0402 WBC 6.94 8.64 9.42 RBC 4.78 5.15 4.60 HGB 14.4 15.5 13.8 HCT 42.9 46.0 41.2 MCV 89.7 89.3 89.6 MCH 30.0 30.1 29.9 MCHC 33.5 33.7 33.4 RDW 51.6 52.9 51.2 PLT 282 284 262 MPV 9.1 9.4 9.0 NEUTROABS 4.53 5.83 6.77 LYMPHSABS 1.19 1.60 1.34 MONOSABS 0.90* 0.86* 1.10* BASOSABS 0.05 0.06 0.06 EOSABS 0.28 0.29 0.14 Recent Labs Lab 10/17/17 0415 10/16/17 1753 10/16/17 1320 10/16/17 0407 10/15/17 0402 NA 143 -- -- 143 145 K 3.6 3.2* 5.3* 4.0 3.7 CL 108 -- -- 109 111* CO2 24 -- -- 24 21* ANIONGAP 15 -- -- 14 17 GLUF 104* -- -- 101* 80 BUN 10 -- -- 10 15 CREATININE 0.9 -- -- 1.0 0.9 BCR 11 -- -- 10 17 CA 7.7* -- -- 8.4* 8.0* ALB -- -- -- 3.3* -- PROT -- -- -- 7.7 -- BILITOT -- -- -- 0.7 -- ALT -- -- -- 33 -- AST -- -- -- 52* -- EGFR >60 -- -- >60 >60 PHOS 4.1 2.0* 2.3 3.2 2.6 MG 2.1 1.5* 2.2 2.0 2.4 No results for input(s): INR in the last 168 hours. IMAGING X-ray Chest 1 View Result Date: 10/16/2017 Tubes and lines in expected position. Lungs are clear. X-ray Chest 1 View Result Date: 10/16/2017 1. Tubes and lines in expected position. X-ray Chest 1 View Result Date: 10/14/2017 1. Support lines and tubes are in satisfactory position. LEM LIST Principal Problem: Seizure (HCC) Active Problems: Polysubstance abuse Acute metabolic encephalopathy Resolved Problems: Bandemia ASSESSMENT & PLAN NEURO: Acute metabolic encephalopathy likely secondary to drug use and seizure. Supportive kelechi ures. PRN ativan for agitation or seizure activity. May need psych eval if he does not carlos r enough to exhibit decisional capability. Required sedation and intubation due to uncontro llable behaviors and risk of self harm due to encephalopathy. Polysubstance abuse: drug screen positive for MDMA, methamphetamines, amphetamines, and THC. Supportive care. Continue treating seizures with benzos If becomes hypertensive, use benzos as first line and avoid beta blockers. Seizures: most likely secondary to polysubstance use CT head negative, LP negative. EEG negative for epileptiform discharges. Unknown ETOH history: continue on CIWA, thiamine, and folic for now. CV: Hemodynamically stable. Monitor on telemetry. PULM: Required sedation and intubation due to severe agitation and to protect patient from jaimie f harm. Maintain lung protective vent strategy; wean FiO2 and PEEP as tolerated GI/NUTRITION: NPO RENAL/LYTES: Monitor renal function, electrolytes, and I/O. Avoid nephrotoxins, renally dose meds. Elevated CPK in the setting of seizure. Improving with hydration. Continue to monitor. ID: No acute issues. Given 1 dose of ceftriaxone at [facility]. Monitor off ABX. LP negative. HEME: Leukocytosis likely reactionary in setting of seizure. Resolved. No acute issues. ENDO: No acute issues. MUSC/SKIN: Routine skin care as per nursing protocol Turn/reposition Q 2 hours while in bed PT/OT to assess/treat when appropriate PROPHYLAXIS: Stress ulcer prophylaxis: PPI DVT prophylaxis: Heparin SQ VAP bundle: chlorhexidine oral care, HOB >30 degrees Disposition: ICU plan of care as above. Code Status: Full Code *Please bill 40 minutes of critical care time spent evaluating the patient, reviewing the d donna and formulating a plan exclusive of all other procedures. LOLLY Samaniego 10/17/2017 onversion Transa ction, Provider Unknown - 10/16/2017 3:52 PM PDT Progress Notes by Sumanth Yang RRT at 10/16/17 1552 Author: Sumanth Yang RRT Service: (none) Author Type: Registered Respiratory Therap ist Filed: 10/16/17 1557 Date of Service: 10/16/17 1552 Status: Signed Drafter (Cad) Electronic: Sumanth Yang RRT (Registered Respiratory Therapist) Responded to staff assist/code blue to find patient had self extubated while in 4 point res traints. BMV was being performed by RN. Patient was emergently re-intubated by hemmer chainstitch and placed back on mechanical ventilation. onver herb Transaction, Provider Unknown - 10/16/2017 12:11 PM PDT Therapy Progress Note by JERMAIN Braun/Betsy at 10/16/17 1211 Author: KAIA Braun Service: (none) Author Type: Occupational Therapist Filed: 10/16/17 1211 Date of Service: 10/16/17 1211 Status: Signed Drafter (Cad) Electronic: KAIA Braun (Occupational Therapist) 10/16/17 1210 OT Last Visit OT Received On 10/16/17 Requires OT Follow Up No (will need new OT orders) Other Comments Comments Pt now intubated, will need new OT eval orders, please re order OT when/if pt beco mes appropriate. onver herb Transaction, Provider Unknown - 10/16/2017 10:13 AM PDT Case Management by HENRY Lou at 10/16/17 1013 Author: HENRY Lou Service: (none) Author Type: Fruit Peeler Filed: 10/16/17 1243 Date of Service: 10/16/17 1013 Status: Signed Drafter (Cad) Electronic: HENRY Lou (Fruit Peeler) Attended morning rounds. Pt is vented. Had a code lorie called on him last night for being v iolent. Pulled out all of his IV's. He is in 4 point restraints. Hopefully will be have daisy e return phone calls tomorrow form agencies that I called yesterday trying to locate any fam sue members. onver herb Transaction, Provider Unknown - 10/16/2017 9:53 AM PDT Progress Notes by Patty Oconnell RN at 10/16/17 0953 Author: Patty Oconnell RN Service: (none) Author Type: Registered Nurse Filed: 10/16/17 1108 Date of Service: 10/16/17 0953 Status: Signed Drafter (Cad) Electronic: Patty Oconnell RN (Registered Nurse) Pt continuously agitated this morning: Shouting, directing verbal aggression at staff, thr eatening to leave AMA. Also engaging in frequent agitated actions such as kicking or hittin g at staff, attempting to get OOB unattended, and self-harm such as D/C'ing his own PIVs. Engaged in conversation with patient to attempt to hear his concerns and meet his needs. P atient repeatedly says "You cant keep me here. Let me go." Reassured him of his safety from Law-Enforcement acti ons while he is an in-patient here, and reminded him of his doctors' opinions that he needs continued medical care at this time. Deni and Palmira in room several times to assess appropriateness of current therapies for m aintaining patient and staff safety. Valium and Precedex IV and Oxycodone PO used as ordere d and in accordance with CIWA protocol. Sub-therapeutic effects noted, with repeated unsafe , aggressive actions on patient's part. RSI performed when CIWA protocol failed to ameliorate patient's agitation and keep him from self-harm. Intubation uneventful. Sedation titrated as ordered with pt on Vent. Patty Oconnell RN onver herb Transaction, Provider Unknown - 10/16/2017 8:52 AM PDT Therapy Progress Note by Raine Park PT at 10/16/17 0852 Author: Raine Park PT Service: (none) Author Type: Physical Therapist Filed: 10/16/17 0853 Date of Service: 10/16/17 08 Status: Signed Drafter (Cad) Electronic: Raine Park PT (Physical Therapist) 10/16/17 0852 PT Last Visit PT Received On 10/16/17 Reason for Treatment Other (comment) (seizure) Requires PT Follow Up On hold Other Comments Comments RN consulted with pt now extubated, however continues agitated/combative and not a ppropriate for PT assessment. onver herb Transaction, Provider Unknown - 10/16/2017 4:00 AM PDT Nurse Progress Note by Chris Padilla RN at 10/16/17 0400 Author: Chris Padilla RN Service: Water Safety Teacher Author Type: Registered Nurse Filed: 10/16/17 0437 Date of Service: 10/16/17 0400 Status: Signed Drafter (Cad) Electronic: Chris Padilla RN (Registered Nurse) RN had just been in room to administer 10 mg Valium IVP at 0350. At approx 0400 Pt attempte d to get out of bed, and started pulling at IVs, RN attempted to stop him but d/t pts aggres sive and violent outbursts backed off, Pt pulled out both IVs and took off his gown and bega n threatening staff with bodily harm stating he was going to leave the hospital and walk sherie e if need be. Staff assist called and all lights turned on in room, fredi cordova called overhea d, AMA paperwork retrieved however pt is not in right state of mind to sign himself out. Pt began to charge toward the room door as he was swinging a bed alarm box and cord over his he ad in order to hurt staff. Room door closed and threat contained. Pt sat on floor and then l aid down, security entered room upon arrival and assessed pt was breathing, pt transferred w ith lift sheet from floor to bed and four point restraints have been applied for pt and staf f safety. Pt regained consciousness breifly and does not seem to recollect where he is or wh y he is here, were as before he knew he was in the hospital in [place]. Pt is receiving IV fluids and sedation medication. 2 new IVs started. RN outside room, pt informed that restraints wi ll be removed once he behaves better and is no longer a treat to staff or himself. All un-ne ccessary equipment removed from the roomCHRIS PADILLA onver herb Transaction, Provider Unknown - 10/16/2017 3:24 AM PDT Nurse Progress Note by Juan Diego Galindo RN at 10/16/17323 Author: Juan Diego Galindo RN Service: Water Safety Teacher Author Type: Registered Nurse Filed: 10/16/171 Date of Service: 10/16/17323 Status: Signed Drafter (Cad) Electronic: Juan Diego Galindo RN (Registered Nurse) Pt awoke suddenly and attempted to get OOB. He was unsteady on his feet. When this RN att empted to touch him to steady him he yelled, "get away from me." and attempted to punch RN. He states that we are trying to take his organs and repeats this sentiment a short time lat er by stating, "You wont take my liver." When asked where he is, he replies that he doesn't know. Pt reoriented to [facility]. Pt reports that he is going to leave. After pleading with PT to stay, that he is too sick to go anywhere and after urinating and overflowing the urin al. He suddenly returns to bed. Pt bolused 0.2 mcg/kg/hr of Precedex. Pt appears to be unpredictable and violent. Recommend no one goes in pt room alone. Jayjay Jack ARNP - 10/16/2017 3:00 AM PDTFormatting of this note might be different from th e original. Progress Notes by LOLLY Samaniego at 10/16/17 030 Author: LOLLY Samaniego Service: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 +--------+ + + + | EXTERNAL LAB: CBC | Routin | 10/18/2017 | | Results for this | | | e | 3:56 AM | | procedure are in the | | | | PDT | | results section. | + +--------+ + + + | TRIGLYCERIDES | Routin | 10/18/2017 | | Results for this | | | e | 3:56 AM | | procedure are in the | | | | PDT | | results section. | + +--------+ + + + | PHOSPHORUS | Routin | 10/18/2017 | | Results for this | | | e | 3:56 AM | | procedure are in the | | | | PDT | | results section. | + +--------+ + + + | MAGNESIUM | Routin | 10/18/2017 | | Results for this | | | e | 3:56 AM | | procedure are in the | | | | PDT | | results section. | + +--------+ + + + | BASIC METABOLIC | Routin | 10/18/2017 | | Results for this | | PANEL | e | 3:56 AM | | procedure are in the | | | | PDT | | results section. | + +--------+ + + + | POTASSIUM | Routin | 10/17/2017 | | Results for this | | | e | 12:08 PM | | procedure are in the | | | | PDT | | results section. | + +--------+ + + + | AMMONIA | Routin | 10/17/2017 | | Results for this | | | e | 10:39 AM | | procedure are in the | | | | PDT | | results section. | + +--------+ + + + | MAGNESIUM | Routin | 10/17/2017 | | Results for this | | | e | 8:28 AM | | procedure are in the | | | | PDT | | results section. | + +--------+ + + + | EXTERNAL LAB: CBC | Routin | 10/17/2017 | | Results for this | | | e | 4:15 AM | | procedure are in the | | | | PDT | | results section. | + +--------+ + + + | PHOSPHORUS | Routin | 10/17/2017 | | Results for this | | | e | 4:15 AM | | procedure are in the | | | | PDT | | results section. | + +--------+ + + + | MAGNESIUM | Routin | 10/17/2017 | | Results for this | | | e | 4:15 AM | | procedure are in the | | | | PDT | | results section. | + +--------+ + + + | BASIC METABOLIC | Routin | 10/17/2017 | | Results for this | | PANEL | e | 4:15 AM | | procedure are in the | | | | PDT | | results section. | + +--------+ + + + | POTASSIUM | Routin | 10/16/2017 | | Results for this | | | e | 5:53 PM | | procedure are in the | | | | PDT | | results section. | + +--------+ + + + | PHOSPHORUS | Routin | 10/16/2017 | | Results for this | | | e | 5:53 PM | | procedure are in the | | | | PDT | | results section. | + +--------+ + + + | MAGNESIUM | Routin | 10/16/2017 | | Results for this | | | e | 5:53 PM | | procedure are in the | | | | PDT | | results section. | + +--------+ + + + | XR CHEST 1 VIEW | Routin | 10/16/2017 | | Results for this | | | e | 3:39 PM | | procedure are in the | | | | PDT | | results section. | + +--------+ + + + | POTASSIUM | Routin | 10/16/2017 | | Results for this | | | e | 1:20 PM | | procedure are in the | | | | PDT | | results section. | + +--------+ + + + | PHOSPHORUS | Routin | 10/16/2017 | | Results for this | | | e | 1:20 PM | | procedure are in the | | | | PDT | | results section. | + +--------+ + + + | MAGNESIUM | Routin | 10/16/2017 | | Results for this | | | e | 1:20 PM | | procedure are in the | | | | PDT | | results section. | + +--------+ + + + | XR CHEST 1 VIEW | Routin | 10/16/2017 | | Results for this | | | e | 9:29 AM | | procedure are in the | | | | PDT | | results section. | + +--------+ + + + | EXTERNAL LAB: CBC | Routin | 10/16/2017 | | Results for this | | | e | 4:07 AM | | procedure are in the | | | | PDT | | results section. | + +--------+ + + + | PHOSPHORUS | Routin | 10/16/2017 | | Results for this | | | e | 4:07 AM | | procedure are in the | | | | PDT | | results section. | + +--------+ + + + | MAGNESIUM | Routin | 10/16/2017 | | Results for this | | | e | 4:07 AM | | procedure are in the | | | | PDT | | results section. | + +--------+ + + + | CK TOTAL | Routin | 10/16/2017 | | Results for this | | | e | 4:07 AM | | procedure are in the | | | | PDT | | results section. | + +--------+ + + + | HEPATIC FUNCTION | Routin | 10/16/2017 | | Results for this | | PANEL | e | 4:07 AM | | procedure are in the | | | | PDT | | results section. | + +--------+ + + + | BASIC METABOLIC | Routin | 10/16/2017 | | Results for this | | PANEL | e | 4:07 AM | | procedure are in the | | | | PDT | | results section. | + +--------+ + + + | EXTERNAL LAB: CBC | Routin | 10/15/2017 | | Results for this | | | e | 4:02 AM | | procedure are in the | | | | PDT | | results section. | + +--------+ + + + | PHOSPHORUS | Routin | 10/15/2017 | | Results for this | | | e | 4:02 AM | | procedure are in the | | | | PDT | | results section. | + +--------+ + + + | MAGNESIUM | Routin | 10/15/2017 | | Results for this | | | e | 4:02 AM | | procedure are in the | | | | PDT | | results section. | + +--------+ + + + | CK TOTAL | Routin | 10/15/2017 | | Results for this | | | e | 4:02 AM | | procedure are in the | | | | PDT | | results section. | + +--------+ + + + | BASIC METABOLIC | Routin | 10/15/2017 | | Results for this | | PANEL | e | 4:02 AM | | procedure are in the | | | | PDT | | results section. | + +--------+ + + + | LACTIC ACID | Routin | 10/14/2017 | | Results for this | | | e | 3:28 PM | | procedure are in the | | | | PDT | | results section. | + +--------+ + + + | CK TOTAL | Routin | 10/14/2017 | | Results for this | | | e | 3:27 PM | | procedure are in the | | | | PDT | | results section. | + +--------+ + + + | BASIC METABOLIC | Routin | 10/14/2017 | | Results for this | | PANEL | e | 3:27 PM | | procedure are in the | | | | PDT | | results section. | + +--------+ + + + | XR CHEST 1 VIEW | Routin | 10/14/2017 | | Results for this | | | e | 1:11 PM | | procedure are in the | | | | PDT | | results section. | + +--------+ + + + | MRSA NAAT | Routin | 10/14/2017 | | Results for this | | | e | 12:46 PM | | procedure are in the | | | | PDT | | results section. | + +--------+ + + + | POC GLUCOSE | Routin | 10/14/2017 | | Results for this | | | e | 12:14 PM | | procedure are in the | | | | PDT | | results section. | + +--------+ + + + | GRAM STAIN, REFLEX | STAT | 10/14/2017 | | Results for this | | SPUTUM CULTURE | | 12:10 PM | | procedure are in the | | | | PDT | | results section. | + +--------+ + + + documented in this encounter Results ECG 12 lead (10/25/2017 3:25 AM PDT) + + + + + + | Component | Value | Ref Range | Performed | Pathologist | | | | | At | Signature | + + + + + + | DIAGNOSIS: | Normal sinus | | EXTERNAL | | | | rhythmNormal ECGWhen | | LAB | | | | compared with ECG of | | | | | | 24-OCT-2017 | | | | | | 04:27,Nonspecific T wave | | | | | | changes noted in lead | | | | | | IIIConfirmed by Marco Antonio JEFFRIES, | | | | | | Bear ([id number]) on | | | | | | 10/25/2017 8:57:10 AM | | | | + + + + + + + + | Specimen | + + | | + + + + + | Narrative | Performed At | + + + | QTc monitoring. Historically converted procedure from [facility] | EXTERNAL LAB | | Epic environment | | + + + + +---------+ + + | Performing | Address | City/State/Zipcode | Phone Number | | Organization | | | | + +---------+ + + | EXTERNAL LAB | | | | + +---------+ + + External Lab: CBC (10/24/2017 5:27 AM PDT) + + + + + + | Component | Value | Ref Range | Performed | Pathologist | | | | | At | Signature | + + + + + + | WBC | 13.88 (H) | 3.80 - 11.00 | EXTERNAL | | | | | K/uL | LAB | | + + + + + + | RED CELL | 4.79 | 4.20 - 5.70 | EXTERNAL | | | COUNT | | M/uL | LAB | | + + + + + + | Hgb | 14.2 | 13.2 - 17.0 | EXTERNAL | | | | | g/dL | LAB | | + + + + + + | Hematocrit, | 42.3 | 39.0 - 50.0 % | EXTERNAL | | | POC | | | LAB | | + + + + + + | MCV | 88.5 | 80.0 - 100.0 fl | EXTERNAL | | | | | | LAB | | + + + + + + | MCH | 29.6 | 27.0 - 34.0 pg | EXTERNAL | | | | | | LAB | | + + + + + + | MCHC | 33.4 | 32.0 - 35.5 | EXTERNAL | | | | | g/dL | LAB | | + + + + + + | RDW-CV | 50.3 | 37 - 53 fl | EXTERNAL | | | | | | LAB | | + + + + + + | Platelet | 531 (H) | 150 - 400 K/uL | EXTERNAL | | | Count | | | LAB | | | Plasma | | | | | + + + + + + | MPV | 8.5 | fl | EXTERNAL | | | | | | LAB | | + + + + + + | Differentia | AUTOMATED | | EXTERNAL | | | l Type | | | LAB | | + + + + + + | % Segmented | 83.79 | % | EXTERNAL | | | | | | LAB | | | Neutrophils | | | | | + + + + + + | % | 6.77 | % | EXTERNAL | | | Lymphocytes | | | LAB | | + + + + + + | % Monocytes | 8.73 | % | EXTERNAL | | | | | | LAB | | + + + + + + | % | 0.14 | % | EXTERNAL | | | Eosinophils | | | LAB | | + + + + + + | % Basophils | 0.57 | % | EXTERNAL | | | | | | LAB | | + + + + + + | Absolute | 11.63 (H) | 1.90 - 7.40 | EXTERNAL | | | Segmented | | K/uL | LAB | | | Neutrophils | | | | | + + + + + + | Absolute | 0.94 (L) | 1.00 - 3.90 | EXTERNAL | | | Lymphocytes | | K/uL | LAB | | + + + + + + | Absolute | 1.21 (H) | 0.00 - 0.80 | EXTERNAL | | | Monocytes | | K/uL | LAB | | + + + + + + | Absolute | 0.02 | 0.00 - 0.50 | EXTERNAL | | | Eosinophils | | K/uL | LAB | | + + + + + + | Absolute | 0.08Comment: Testing | 0.00 - 0.10 | EXTERNAL | | | Basophils | performed at [facility];[address] | [address] | LAB | | | | [address];[place], [place] | | | | | | [address] | | | | + + + + + + + + | Specimen | + + | | + + + +---------+ + + | Performing | Address | City/State/Zipcode | Phone Number | | Organization | | | | + +---------+ + + | EXTERNAL LAB | | | | + +---------+ + + ECG 12 lead (10/24/2017 4:27 AM PDT) + + + + + + | Component | Value | Ref Range | Performed | Pathologist | | | | | At | Signature | + + + + + + | DIAGNOSIS: | Normal sinus | | EXTERNAL | | | | rhythmNormal ECGWhen | | LAB | | | | compared with ECG of | | | | | | 22-OCT-2017 14:04,No | | | | | | significant change was | | | | | | foundConfirmed by Marco Antonio | | | | | | Bear JEFFRIES ([id number]) on | | | | | | 10/25/2017 7:49:35 AM | | | | + + + + + + + + | Specimen | + + | | + + + + + | Narrative | Performed At | + + + | QTc monitoring. Historically converted procedure from [facility] | EXTERNAL LAB | | Epic environment | | + + + + +---------+ + + | Performing | Address | City/State/Zipcode | Phone Number | | Organization | | | | + +---------+ + + | EXTERNAL LAB | | | | + +---------+ + + Phosphorus (10/24/2017 4:14 AM PDT) + + + + + + | Component | Value | Ref Range | Performed | Pathologist | | | | | At | Signature | + + + + + + | PHOSPHORUS | 3.7Comment: Testing | 2.3 - 4.8 mg/dL | EXTERNAL | | | | performed at [facility];[address] | | LAB | | | | [address];[place], [place] | | | | | | [address] | | | | + + + + + + + + | Specimen | + + | Blood specimen | | (specimen) | + + + +---------+ + + | Performing | Address | City/State/Zipcode | Phone Number | | Organization | | | | + +---------+ + + | EXTERNAL LAB | | | | + +---------+ + + Magnesium (10/24/2017 4:14 AM PDT) + + + + + + | Component | Value | Ref Range | Performed | Pathologist | | | | | At | Signature | + + + + + + | Magnesium | 2.8 (H)Comment: SLT | 1.7 - 2.4 mg/dL | EXTERNAL | | | | HEMOLYSISTesting | | LAB | | | | performed at [facility];[address] | | | | | | [address];[place], [place] | | | | | | [address] | | | | + + + + + + + + | Specimen | + + | Blood specimen | | (specimen) | + + + +---------+ + + | Performing | Address | City/State/Zipcode | Phone Number | | Organization | | | | + +---------+ + + | EXTERNAL LAB | | | | + +---------+ + + Basic Metabolic Panel (10/24/2017 4:14 AM PDT) + + + + + + | Component | Value | Ref Range | Performed | Pathologist | | | | | At | Signature | + + + + + + | Na | 142 | 135 - 145 | EXTERNAL | | | | | mmol/L | LAB | | + + + + + + | K | 4.3Comment: SLT | 3.5 - 4.9 | EXTERNAL | | | | HEMOLYSIS | mmol/L | LAB | | + + + + + + | Cl | 106 | 99 - 109 mmol/L | EXTERNAL | | | | | | LAB | | + + + + + + | CO2 | 26 | 23 - 32 mmol/L | EXTERNAL | | | | | | LAB | | + + + + + + | Anion Gap | 14 | 5 - 20 mmol/L | EXTERNAL | | | | | | LAB | | + + + + + + | Glucose, | 106 (H) | 65 - 99 mg/dL | EXTERNAL | | | Fasting | | | LAB | | + + + + + + | BUN | 21 | 8 - 25 mg/dL | EXTERNAL | | | | | | LAB | | + + + + + + | Creatinine | 0.88 | 0.70 - 1.30 | EXTERNAL | | | | | mg/dL | LAB | | + + + + + + | BUN/Creatin | 24 | | EXTERNAL | | | ine Ratio | | | LAB | | + + + + + + | Calcium | 8.9 | 8.5 - 10.5 | EXTERNAL | | | | | mg/dL | LAB | | + + + + + + | Estimated | >60Comment: GFR <60: | mL/min/1.73m2 | EXTERNAL | | | GFR | CHRONIC KIDNEY DISEASE, | | LAB | | | | IF FOUND OVER A 3 MONTH | | | | | | PERIOD.GFR <15: KIDNEY | | | | | | FAILURE.FOR | | | | | | AMERICANS, MULTIPLY THE | | | | | | CALCULATED GFR BY | | | | | | 1.210.This eGFR is | | | | | | calculated using the | | | | | | MDRD IDMS traceable | | | | | | equation.Testing | | | | | | performed at [facility] [place];[address] | | | | | | [address];[place], [place] | | | | | | [address] | | | | + + + + + + + + | Specimen | + + | Blood specimen | | (specimen) | + + + +---------+ + + | Performing | Address | City/State/Zipcode | Phone Number | | Organization | | | | + +---------+ + + | EXTERNAL LAB | | | | + +---------+ + + External Lab: CBC (10/23/2017 4:01 AM PDT) + + + + + + | Component | Value | Ref Range | Performed | Pathologist | | | | | At | Signature | + + + + + + | WBC | 13.33 (H) | 3.80 - 11.00 | EXTERNAL | | | | | K/uL | LAB | | + + + + + + | RED CELL | 4.49 | 4.20 - 5.70 | EXTERNAL | | | COUNT | | M/uL | LAB | | + + + + + + | Hgb | 13.5 | 13.2 - 17.0 | EXTERNAL | | | | | g/dL | LAB | | + + + + + + | Hematocrit, | 39.6 | 39.0 - 50.0 % | EXTERNAL | | | POC | | | LAB | | + + + + + + | MCV | 88.2 | 80.0 - 100.0 fl | EXTERNAL | | | | | | LAB | | + + + + + + | MCH | 30.1 | 27.0 - 34.0 pg | EXTERNAL | | | | | | LAB | | + + + + + + | MCHC | 34.1 | 32.0 - 35.5 | EXTERNAL | | | | | g/dL | LAB | | + + + + + + | RDW-CV | 50.3 | 37 - 53 fl | EXTERNAL | | | | | | LAB | | + + + + + + | Platelet | 391 | 150 - 400 K/uL | EXTERNAL | | | Count | | | LAB | | | Plasma | | | | | + + + + + + | MPV | 9.3 | fl | EXTERNAL | | | | | | LAB | | + + + + + + | Differentia | AUTOMATED | | EXTERNAL | | | l Type | | | LAB | | + + + + + + | % Segmented | 72.55 | % | EXTERNAL | | | | | | LAB | | | Neutrophils | | | | | + + + + + + | % | 8.86 | % | EXTERNAL | | | Lymphocytes | | | LAB | | + + + + + + | % Monocytes | 13.61 | % | EXTERNAL | | | | | | LAB | | + + + + + + | % | 4.45 | % | EXTERNAL | | | Eosinophils | | | LAB | | + + + + + + | % Basophils | 0.53 | % | EXTERNAL | | | | | | LAB | | + + + + + + | Absolute | 9.67 (H) | 1.90 - 7.40 | EXTERNAL | | | Segmented | | K/uL | LAB | | | Neutrophils | | | | | + + + + + + | Absolute | 1.18 | 1.00 - 3.90 | EXTERNAL | | | Lymphocytes | | K/uL | LAB | | + + + + + + | Absolute | 1.81 (H) | 0.00 - 0.80 | EXTERNAL | | | Monocytes | | K/uL | LAB | | + + + + + + | Absolute | 0.59 (H) | 0.00 - 0.50 | EXTERNAL | | | Eosinophils | | K/uL | LAB | | + + + + + + | Absolute | 0.07Comment: Testing | 0.00 - 0.10 | EXTERNAL | | | Basophils | performed at [facility], [address] | [address] | LAB | | | | [address], | | | | | | [place] [address] | | | | + + + + + + + + | Specimen | + + | Blood specimen | | (specimen) | + + + +---------+ + + | Performing | Address | City/State/Zipcode | Phone Number | | Organization | | | | + +---------+ + + | EXTERNAL LAB | | | | + +---------+ + + Phosphorus (10/23/2017 4:01 AM PDT) + + + + + + | Component | Value | Ref Range | Performed | Pathologist | | | | | At | Signature | + + + + + + | PHOSPHORUS | 3.7Comment: Testing | 2.3 - 4.8 mg/dL | EXTERNAL | | | | performed at [facility], [address] | | LAB | | | | [address], | | | | | | [place] [address] | | | | + + + + + + + + | Specimen | + + | Blood specimen | | (specimen) | + + + +---------+ + + | Performing | Address | City/State/Zipcode | Phone Number | | Organization | | | | + +---------+ + + | EXTERNAL LAB | | | | + +---------+ + + Magnesium (10/23/2017 4:01 AM PDT) + + + + + + | Component | Value | Ref Range | Performed | Pathologist | | | | | At | Signature | + + + + + + | Magnesium | 2.4Comment: Testing | 1.7 - 2.4 mg/dL | EXTERNAL | | | | performed at [facility], [address] | | LAB | | | | [address], | | | | | | [place] [address] | | | | + + + + + + + + | Specimen | + + | Blood specimen | | (specimen) | + + + +---------+ + + | Performing | Address | City/State/Zipcode | Phone Number | | Organization | | | | + +---------+ + + | EXTERNAL LAB | | | | + +---------+ + + Basic Metabolic Panel (10/23/2017 4:01 AM PDT) + + + + + + | Component | Value | Ref Range | Performed | Pathologist | | | | | At | Signature | + + + + + + | Na | 140 | 135 - 145 | EXTERNAL | | | | | mmol/L | LAB | | + + + + + + | K | 4.5 | 3.5 - 4.9 | EXTERNAL | | | | | mmol/L | LAB | | + + + + + + | Cl | 107 | 99 - 109 mmol/L | EXTERNAL | | | | | | LAB | | + + + + + + | CO2 | 24 | 23 - 32 mmol/L | EXTERNAL | | | | | | LAB | | + + + + + + | Anion Gap | 14 | 5 - 20 mmol/L | EXTERNAL | | | | | | LAB | | + + + + + + | Glucose, | 133 (H) | 65 - 99 mg/dL | EXTERNAL | | | Fasting | | | LAB | | + + + + + + | BUN | 20 | 8 - 25 mg/dL | EXTERNAL | | | | | | LAB | | + + + + + + | Creatinine | 0.8 | 0.70 - 1.30 | EXTERNAL | | | | | mg/dL | LAB | | + + + + + + | BUN/Creatin | 25 | | EXTERNAL | | | ine Ratio | | | LAB | | + + + + + + | Calcium | 8.1 (L) | 8.5 - 10.5 | EXTERNAL | | | | | mg/dL | LAB | | + + + + + + | Estimated | >60Comment: GFR <60: | mL/min/1.73m2 | EXTERNAL | | | GFR | CHRONIC KIDNEY DISEASE, | | LAB | | | | IF FOUND OVER A 3 MONTH | | | | | | PERIOD.GFR <15: KIDNEY | | | | | | FAILURE.FOR | | | | | | AMERICANS, MULTIPLY THE | | | | | | CALCULATED GFR BY | | | | | | 1.210.This eGFR is | | | | | | calculated using the | | | | | | MDRD IDMS traceable | | | | | | equation.Testing | | | | | | performed at [facility], [address] | | | | | | [address], | | | | | | [place] [address] | | | | + + + + + + + + | Specimen | + + | Blood specimen | | (specimen) | + + + +---------+ + + | Performing | Address | City/State/Zipcode | Phone Number | | Organization | | | | + +---------+ + + | EXTERNAL LAB | | | | + +---------+ + + Rapid Plasma Reagin, Quant (10/22/2017 3:40 PM PDT) + + + + + + | Component | Value | Ref Range | Performed | Pathologist | | | | | At | Signature | + + + + + + | RPR TITER | Non ReactiveComment: | | EXTERNAL | | | | Reference range: | | LAB | | | | NonRea<1:1Testing | | | | | | performed by [facility], | | | | | | [address], | | | | | | [place] [address] | | | | + + + + + + + + | Specimen | + + | Blood specimen | | (specimen) | + + + +---------+ + + | Performing | Address | City/State/Zipcode | Phone Number | | Organization | | | | + +---------+ + + | EXTERNAL LAB | | | | + +---------+ + + DUNG Profile, Reflex (10/22/2017 3:40 PM PDT) + + + + + + | Component | Value | Ref Range | Performed | Pathologist | | | | | At | Signature | + + + + + + | DUNG | NegativeComment: | | EXTERNAL | | | | Reference range: | | LAB | | | | NegativeTesting | | | | | | performed at [facility], [address] | | | | | | [facility] [place] | | | | | | [place] [address] | | | | + + + + + + | C ANCA | <1:20Comment: Reference | titer | EXTERNAL | | | | range: Neg:<1:20 | | LAB | | + + + + + + | Perinuclear | <1:20Comment: Reference | titer | EXTERNAL | | | (P-ANCA) | range: Neg:<1:20 The | | LAB | | | | presence of positive | | | | | | fluorescence exhibiting | | | | | | P-ANCA or C-ANCApatterns | | | | | | alone is not specific | | | | | | for the diagnosis of | | | | | | Jean'sGranulomatosis | | | | | | (WG) or microscopic | | | | | | polyangiitis. Decisions | | | | | | abouttreatment should | | | | | | not be based solely on | | | | | | ANCA IFA results. | | | | | | TheInternational ANCA | | | | | | Group Consensus | | | | | | recommends follow up | | | | | | testing ofpositive sera | | | | | | with both VA-3 and | | | | | | MPO-ANCA enzyme | | | | | | immunoassays. Asmany as | | | | | | 5% serum samples are | | | | | | positive only by | | | | | | EIA.Ref. AM J Clin | | | | | | Pathol 1999;[phone]. | | | | | | | | | | + + + + + + | Atypical | <1:20Comment: Reference | titer | EXTERNAL | | | pANCA | range: Neg:<1:20 The | | LAB | | | | atypical pANCA pattern | | | | | | has been observed in a | | | | | | significantpercentage of | | | | | | patients with | | | | | | ulcerative colitis, | | | | | | primary | | | | | | sclerosingcholangitis | | | | | | and autoimmune | | | | | | hepatitis. | | | | + + + + + + | Myeloperoxi | <9.0Comment: Reference | U/mL | EXTERNAL | | | dase | range: 0.0 to 9.0 | | LAB | | | Antibody | | | | | + + + + + + | ANCA | <3.5Comment: Reference | U/mL | EXTERNAL | | | Proteinase | range: 0.0 to 3.5Testing | | LAB | | | 3 | performed by [facility], | | | | | | [id number], | | | | | | [facility] [address] | | | | + + + + + + + + | Specimen | + + | Blood specimen | | (specimen) | + + + +---------+ + + | Performing | Address | City/State/Zipcode | Phone Number | | Organization | | | | + +---------+ + + | EXTERNAL LAB | | | | + +---------+ + + ECG 12 lead (10/22/2017 2:04 PM PDT) + + + + + + | Component | Value | Ref Range | Performed | Pathologist | | | | | At | Signature | + + + + + + | DIAGNOSIS: | Normal sinus | | EXTERNAL | | | | rhythmNormal ECGNo | | LAB | | | | previous ECGs | | | | | | availableConfirmed by | | | | | | SANAZ MELENDREZ ([id number]) on | | | | | | 10/23/2017 9:30:38 AM | | | | + + + + + + + + | Specimen | + + | | + + + + + | Narrative | Performed At | + + + | QTc monitoring Historically converted procedure from [facility] | EXTERNAL LAB | | environment | | + + + + +---------+ + + | Performing | Address | City/State/Zipcode | Phone Number | | Organization | | | | + +---------+ + + | EXTERNAL LAB | | | | + +---------+ + + External Lab: CBC (10/22/2017 4:01 AM PDT) + + + + + + | Component | Value | Ref Range | Performed | Pathologist | | | | | At | Signature | + + + + + + | WBC | 7.04 | 3.80 - 11.00 | EXTERNAL | | | | | K/uL | LAB | | + + + + + + | RED CELL | 4.32 | 4.20 - 5.70 | EXTERNAL | | | COUNT | | M/uL | LAB | | + + + + + + | Hgb | 12.9 (L) | 13.2 - 17.0 | EXTERNAL | | | | | g/dL | LAB | | + + + + + + | Hematocrit, | 38.3 (L) | 39.0 - 50.0 % | EXTERNAL | | | POC | | | LAB | | + + + + + + | MCV | 88.7 | 80.0 - 100.0 fl | EXTERNAL | | | | | | LAB | | + + + + + + | [facility] | 29.8 | 27.0 - 34.0 pg | EXTERNAL | | | | | | LAB | | + + + + + + | MCHC | 33.7 | 32.0 - 35.5 | EXTERNAL | | | | | g/dL | LAB | | + + + + + + | RDW-CV | 50.8 | 37 - 53 fl | EXTERNAL | | | | | | LAB | | + + + + + + | Platelet | 356 | 150 - 400 K/uL | EXTERNAL | | | Count | | | LAB | | | Plasma | | | | | + + + + + + | MPV | 9.2 | fl | EXTERNAL | | | | | | LAB | | + + + + + + | Differentia | AUTOMATED | | EXTERNAL | | | l Type | | | LAB | | + + + + + + | % Segmented | 67.99 | % | EXTERNAL | | | | | | LAB | | | Neutrophils | | | | | + + + + + + | % | 11.62 | % | EXTERNAL | | | Lymphocytes | | | LAB | | + + + + + + | % Monocytes | 13.58 | % | EXTERNAL | | | | | | LAB | | + + + + + + | % | 6.27 | % | EXTERNAL | | | Eosinophils | | | LAB | | + + + + + + | % Basophils | 0.54 | % | EXTERNAL | | | | | | LAB | | + + + + + + | Absolute | 4.78 | 1.90 - 7.40 | EXTERNAL | | | Segmented | | K/uL | LAB | | | Neutrophils | | | | | + + + + + + | Absolute | 0.82 (L) | 1.00 - 3.90 | EXTERNAL | | | Lymphocytes | | K/uL | LAB | | + + + + + + | Absolute | 0.96 (H) | 0.00 - 0.80 | EXTERNAL | | | Monocytes | | K/uL | LAB | | + + + + + + | Absolute | 0.44 | 0.00 - 0.50 | EXTERNAL | | | Eosinophils | | K/uL | LAB | | + + + + + + | Absolute | 0.04Comment: Testing | 0.00 - 0.10 | EXTERNAL | | | Basophils | performed at [facility], [address] | K/uL | LAB | | | | [address], | | | | | | [place] [address] | | | | + + + + + + + + | Specimen | + + | Blood specimen | | (specimen) | + + + +---------+ + + | Performing | Address | City/State/Zipcode | Phone Number | | Organization | | | | + +---------+ + + | EXTERNAL LAB | | | | + +---------+ + + Phosphorus (10/22/2017 4:01 AM PDT) + + + + + + | Component | Value | Ref Range | Performed | Pathologist | | | | | At | Signature | + + + + + + | PHOSPHORUS | 3.5Comment: Testing | 2.3 - 4.8 mg/dL | EXTERNAL | | | | performed at [facility], [address] | | LAB | | | | [address], | | | | | | [place] [address] | | | | + + + + + + + + | Specimen | + + | Blood specimen | | (specimen) | + + + +---------+ + + | Performing | Address | City/State/Zipcode | Phone Number | | Organization | | | | + +---------+ + + | EXTERNAL LAB | | | | + +---------+ + + Magnesium (10/22/2017 4:01 AM PDT) + + + + + + | Component | Value | Ref Range | Performed | Pathologist | | | | | At | Signature | + + + + + + | Magnesium | 2.3Comment: Testing | 1.7 - 2.4 mg/dL | EXTERNAL | | | | performed at [facility], [address] | | LAB | | | | [address], | | | | | | [place] [address] | | | | + + + + + + + + | Specimen | + + | Blood specimen | | (specimen) | + + + +---------+ + + | Performing | Address | City/State/Zipcode | Phone Number | | Organization | | | | + +---------+ + + | EXTERNAL LAB | | | | + +---------+ + + Basic Metabolic Panel (10/22/2017 4:01 AM PDT) + + + + + + | Component | Value | Ref Range | Performed | Pathologist | | | | | At | Signature | + + + + + + | Na | 139 | 135 - 145 | EXTERNAL | | | | | mmol/L | LAB | | + + + + + + | K | 4.6 | 3.5 - 4.9 | EXTERNAL | | | | | mmol/L | LAB | | + + + + + + | Cl | 106 | 99 - 109 mmol/L | EXTERNAL | | | | | | LAB | | + + + + + + | CO2 | 23 | 23 - 32 mmol/L | EXTERNAL | | | | | | LAB | | + + + + + + | Anion Gap | 15 | 5 - 20 mmol/L | EXTERNAL | | | | | | LAB | | + + + + + + | Glucose, | 136 (H) | 65 - 99 mg/dL | EXTERNAL | | | Fasting | | | LAB | | + + + + + + | BUN | 17 | 8 - 25 mg/dL | EXTERNAL | | | | | | LAB | | + + + + + + | Creatinine | 0.8 | 0.70 - 1.30 | EXTERNAL | | | | | mg/dL | LAB | | + + + + + + | BUN/Creatin | 21 | | EXTERNAL | | | ine Ratio | | | LAB | | + + + + + + | Calcium | 7.9 (L) | 8.5 - 10.5 | EXTERNAL | | | | | mg/dL | LAB | | + + + + + + | Estimated | >60Comment: GFR <60: | mL/min/1.73m2 | EXTERNAL | | | GFR | CHRONIC KIDNEY DISEASE, | | LAB | | | | IF FOUND OVER A 3 MONTH | | | | | | PERIOD.GFR <15: KIDNEY | | | | | | FAILURE.FOR | | | | | | AMERICANS, MULTIPLY THE | | | | | | CALCULATED GFR BY | | | | | | 1.210.This eGFR is | | | | | | calculated using the | | | | | | MDRD [facility] traceable | | | | | | equation.Testing | | | | | | performed at [facility], [address] | | | | | | [facility], | | | | | | [place] [address] | | | | + + + + + + + + | Specimen | + + | Blood specimen | | (specimen) | + + + +---------+ + + | Performing | Address | City/State/Zipcode | Phone Number | | Organization | | | | + +---------+ + + | EXTERNAL LAB | | | | + +---------+ + + External Lab: CBC (10/21/2017 4:13 AM PDT) + + + + + + | Component | Value | Ref Range | Performed | Pathologist | | | | | At | Signature | + + + + + + | WBC | 7.79 | 3.80 - 11.00 | EXTERNAL | | | | | K/uL | LAB | | + + + + + + | RED CELL | 4.42 | 4.20 - 5.70 | EXTERNAL | | | COUNT | | M/uL | LAB | | + + + + + + | Hgb | 13.2 | 13.2 - 17.0 | EXTERNAL | | | | | g/dL | LAB | | + + + + + + | Hematocrit, | 39.7 | 39.0 - 50.0 % | EXTERNAL | | | POC | | | LAB | | + + + + + + | MCV | 89.7 | 80.0 - 100.0 fl | EXTERNAL | | | | | | LAB | | + + + + + + | MCH | 29.9 | 27.0 - 34.0 pg | EXTERNAL | | | | | | LAB | | + + + + + + | MCHC | 33.4 | 32.0 - 35.5 | EXTERNAL | | | | | g/dL | LAB | | + + + + + + | RDW-CV | 51.6 | 37 - 53 fl | EXTERNAL | | | | | | LAB | | + + + + + + | Platelet | 325 | 150 - 400 K/uL | EXTERNAL | | | Count | | | LAB | | | Plasma | | | | | + + + + + + | MPV | 9.2 | fl | EXTERNAL | | | | | | LAB | | + + + + + + | Differentia | AUTOMATED | | EXTERNAL | | | l Type | | | LAB | | + + + + + + | % Segmented | 67.51 | % | EXTERNAL | | | | | | LAB | | | Neutrophils | | | | | + + + + + + | % | 11.07 | % | EXTERNAL | | | Lymphocytes | | | LAB | | + + + + + + | % Monocytes | 13.51 | % | EXTERNAL | | | | | | LAB | | + + + + + + | % | 7.55 | % | EXTERNAL | | | Eosinophils | | | LAB | | + + + + + + | % Basophils | 0.36 | % | EXTERNAL | | | | | | LAB | | + + + + + + | Absolute | 5.26 | 1.90 - 7.40 | EXTERNAL | | | Segmented | | K/uL | LAB | | | Neutrophils | | | | | + + + + + + | Absolute | 0.86 (L) | 1.00 - 3.90 | EXTERNAL | | | Lymphocytes | | K/uL | LAB | | + + + + + + | Absolute | 1.05 (H) | 0.00 - 0.80 | EXTERNAL | | | Monocytes | | K/uL | LAB | | + + + + + + | Absolute | 0.59 (H) | 0.00 - 0.50 | EXTERNAL | | | Eosinophils | | K/uL | LAB | | + + + + + + | Absolute | 0.03Comment: Testing | 0.00 - 0.10 | EXTERNAL | | | Basophils | performed at [facility], [address] | [address] | LAB | | | | [address], | | | | | | [place] [address] | | | | + + + + + + + + | Specimen | + + | Blood specimen | | (specimen) | + + + +---------+ + + | Performing | Address | City/State/Zipcode | Phone Number | | Organization | | | | + +---------+ + + | EXTERNAL LAB | | | | + +---------+ + + Phosphorus (10/21/2017 4:13 AM PDT) + + + + + + | Component | Value | Ref Range | Performed | Pathologist | | | | | At | Signature | + + + + + + | PHOSPHORUS | 3.7Comment: SPECIMEN | 2.3 - 4.8 mg/dL | EXTERNAL | | | | SLIGHTLY | | LAB | | | | HEMOLYZEDTesting | | | | | | performed at [facility], [address] | | | | | | [address], | | | | | | [place] [address] | | | | + + + + + + + + | Specimen | + + | Blood specimen | | (specimen) | + + + +---------+ + + | Performing | Address | City/State/Zipcode | Phone Number | | Organization | | | | + +---------+ + + | EXTERNAL LAB | | | | + +---------+ + + Magnesium (10/21/2017 4:13 AM PDT) + + + + + + | Component | Value | Ref Range | Performed | Pathologist | | | | | At | Signature | + + + + + + | Magnesium | 2.2Comment: SPECIMEN | 1.7 - 2.4 mg/dL | EXTERNAL | | | | SLIGHTLY | | LAB | | | | HEMOLYZEDTesting | | | | | | performed at [facility], [address] | | | | | | [facility], | | | | | | [place] [address] | | | | + + + + + + + + | Specimen | + + | Blood specimen | | (specimen) | + + + +---------+ + + | Performing | Address | City/State/Zipcode | Phone Number | | Organization | | | | + +---------+ + + | EXTERNAL LAB | | | | + +---------+ + + Basic Metabolic Panel (10/21/2017 4:13 AM PDT) + + + + + + | Component | Value | Ref Range | Performed | Pathologist | | | | | At | Signature | + + + + + + | Na | 142 | 135 - 145 | EXTERNAL | | | | | mmol/L | LAB | | + + + + + + | K | 4.3Comment: SPECIMEN | 3.5 - 4.9 | EXTERNAL | | | | SLIGHTLY HEMOLYZED | mmol/L | LAB | | + + + + + + | Cl | 109 | 99 - 109 mmol/L | EXTERNAL | | | | | | LAB | | + + + + + + | CO2 | 25 | 23 - 32 mmol/L | EXTERNAL | | | | | | LAB | | + + + + + + | Anion Gap | 12 | 5 - 20 mmol/L | EXTERNAL | | | | | | LAB | | + + + + + + | Glucose, | 141 (H)Comment: SPECIMEN | 65 - 99 mg/dL | EXTERNAL | | | Fasting | SLIGHTLY HEMOLYZED | | LAB | | + + + + + + | BUN | 14 | 8 - 25 mg/dL | EXTERNAL | | | | | | LAB | | + + + + + + | Creatinine | 0.7Comment: SPECIMEN | 0.70 - 1.30 | EXTERNAL | | | | SLIGHTLY HEMOLYZED | mg/dL | LAB | | + + + + + + | BUN/Creatin | 20 | | EXTERNAL | | | ine Ratio | | | LAB | | + + + + + + | Calcium | 8.0 (L) | 8.5 - 10.5 | EXTERNAL | | | | | mg/dL | LAB | | + + + + + + | Estimated | >60Comment: GFR <60: | mL/min/1.73m2 | EXTERNAL | | | GFR | CHRONIC KIDNEY DISEASE, | | LAB | | | | IF FOUND OVER A 3 MONTH | | | | | | PERIOD.GFR <15: KIDNEY | | | | | | FAILURE.FOR | | | | | | AMERICANS, MULTIPLY THE | | | | | | CALCULATED GFR BY | | | | | | 1.210.This eGFR is | | | | | | calculated using the | | | | | | MDRD IDMS traceable | | | | | | equation.Testing | | | | | | performed at [facility], [address] | | | | | | [address], | | | | | | [place] [address] | | | | + + + + + + + + | Specimen | + + | Blood specimen | | (specimen) | + + + +---------+ + + | Performing | Address | City/State/Zipcode | Phone Number | | Organization | | | | + +---------+ + + | EXTERNAL LAB | | | | + +---------+ + + External Lab: CBC (10/20/2017 4:03 AM PDT) + + + + + + | Component | Value | Ref Range | Performed | Pathologist | | | | | At | Signature | + + + + + + | WBC | 10.43 | 3.80 - 11.00 | EXTERNAL | | | | | K/uL | LAB | | + + + + + + | RED CELL | 4.13 (L) | 4.20 - 5.70 | EXTERNAL | | | COUNT | | M/uL | LAB | | + + + + + + | Hgb | 12.5 (L) | 13.2 - 17.0 | EXTERNAL | | | | | g/dL | LAB | | + + + + + + | Hematocrit, | 36.8 (L) | 39.0 - 50.0 % | EXTERNAL | | | POC | | | LAB | | + + + + + + | MCV | 89.3 | 80.0 - 100.0 fl | EXTERNAL | | | | | | LAB | | + + + + + + | MCH | 30.3 | 27.0 - 34.0 pg | EXTERNAL | | | | | | LAB | | + + + + + + | MCHC | 34.0 | 32.0 - 35.5 | EXTERNAL | | | | | g/dL | LAB | | + + + + + + | RDW-CV | 50.8 | 37 - 53 fl | EXTERNAL | | | | | | LAB | | + + + + + + | Platelet | 294 | 150 - 400 K/uL | EXTERNAL | | | Count | | | LAB | | | Plasma | | | | | + + + + + + | MPV | 9.6 | fl | EXTERNAL | | | | | | LAB | | + + + + + + | Differentia | AUTOMATED | | EXTERNAL | | | l Type | | | LAB | | + + + + + + | % Segmented | 68.19 | % | EXTERNAL | | | | | | LAB | | | Neutrophils | | | | | + + + + + + | % | 10.11 | % | EXTERNAL | | | Lymphocytes | | | LAB | | + + + + + + | % Monocytes | 15.24 | % | EXTERNAL | | | | | | LAB | | + + + + + + | % | 5.85 | % | EXTERNAL | | | Eosinophils | | | LAB | | + + + + + + | % Basophils | 0.61 | % | EXTERNAL | | | | | | LAB | | + + + + + + | Absolute | 7.11 | 1.90 - 7.40 | EXTERNAL | | | Segmented | | K/uL | LAB | | | Neutrophils | | | | | + + + + + + | Absolute | 1.05 | 1.00 - 3.90 | EXTERNAL | | | Lymphocytes | | K/uL | LAB | | + + + + + + | Absolute | 1.59 (H) | 0.00 - 0.80 | EXTERNAL | | | Monocytes | | K/uL | LAB | | + + + + + + | Absolute | 0.61 (H) | 0.00 - 0.50 | EXTERNAL | | | Eosinophils | | K/uL | LAB | | + + + + + + | Absolute | 0.06Comment: Testing | 0.00 - 0.10 | EXTERNAL | | | Basophils | performed at [facility], [address] | [address] | LAB | | | | [address], | | | | | | [place] [address] | | | | + + + + + + + + | Specimen | + + | Blood specimen | | (specimen) | + + + +---------+ + + | Performing | Address | City/State/Zipcode | Phone Number | | Organization | | | | + +---------+ + + | EXTERNAL LAB | | | | + +---------+ + + Phosphorus (10/20/2017 4:03 AM PDT) + + + + + + | Component | Value | Ref Range | Performed | Pathologist | | | | | At | Signature | + + + + + + | PHOSPHORUS | 4.0Comment: Testing | 2.3 - 4.8 mg/dL | EXTERNAL | | | | performed at [facility], [address] | | LAB | | | | [address], | | | | | | [place] [address] | | | | + + + + + + + + | Specimen | + + | Blood specimen | | (specimen) | + + + +---------+ + + | Performing | Address | City/State/Zipcode | Phone Number | | Organization | | | | + +---------+ + + | EXTERNAL LAB | | | | + +---------+ + + Magnesium (10/20/2017 4:03 AM PDT) + + + + + + | Component | Value | Ref Range | Performed | Pathologist | | | | | At | Signature | + + + + + + | Magnesium | 2.3Comment: Testing | 1.7 - 2.4 mg/dL | EXTERNAL | | | | performed at [facility], [address] | | LAB | | | | [address], | | | | | | [place] [id number] | | | | + + + + + + + + | Specimen | + + | Blood specimen | | (specimen) | + + + +---------+ + + | Performing | Address | City/State/Zipcode | Phone Number | | Organization | | | | + +---------+ + + | EXTERNAL LAB | | | | + +---------+ + + Basic Metabolic Panel (10/20/2017 4:03 AM PDT) + + + + + + | Component | Value | Ref Range | Performed | Pathologist | | | | | At | Signature | + + + + + + | Na | 142 | 135 - 145 | EXTERNAL | | | | | mmol/L | LAB | | + + + + + + | K | 4.4 | 3.5 - 4.9 | EXTERNAL | | | | | mmol/L | LAB | | + + + + + + | Cl | 110 (H) | 99 - 109 mmol/L | EXTERNAL | | | | | | LAB | | + + + + + + | CO2 | 25 | 23 - 32 mmol/L | EXTERNAL | | | | | | LAB | | + + + + + + | Anion Gap | 11 | 5 - 20 mmol/L | EXTERNAL | | | | | | LAB | | + + + + + + | Glucose, | 122 (H) | 65 - 99 mg/dL | EXTERNAL | | | Fasting | | | LAB | | + + + + + + | BUN | 13 | 8 - 25 mg/dL | EXTERNAL | | | | | | LAB | | + + + + + + | Creatinine | 0.7 | 0.70 - 1.30 | EXTERNAL | | | | | mg/dL | LAB | | + + + + + + | BUN/Creatin | 19 | | EXTERNAL | | | ine Ratio | | | LAB | | + + + + + + | Calcium | 8.1 (L) | 8.5 - 10.5 | EXTERNAL | | | | | mg/dL | LAB | | + + + + + + | Estimated | >60Comment: GFR <60: | mL/min/1.73m2 | EXTERNAL | | | GFR | CHRONIC KIDNEY DISEASE, | | LAB | | | | IF FOUND OVER A 3 MONTH | | | | | | PERIOD.GFR <15: KIDNEY | | | | | | FAILURE.FOR | | | | | | AMERICANS, MULTIPLY THE | | | | | | CALCULATED GFR BY | | | | | | 1.210.This eGFR is | | | | | | calculated using the | | | | | | MDRD IDMS traceable | | | | | | equation.Testing | | | | | | performed at [facility], [address] | | | | | | [facility], | | | | | | [place] [address] | | | | + + + + + + + + | Specimen | + + | Blood specimen | | (specimen) | + + + +---------+ + + | Performing | Address | City/State/Zipcode | Phone Number | | Organization | | | | + +---------+ + + | EXTERNAL LAB | | | | + +---------+ + + XR Chest 1 Vw (10/19/2017 5:35 AM PDT) + + | Specimen | + + | | + + + + + | Impressions | Performed At | + + + | 1. Stable support agreement, without cardiopulmonary change | | | | | + + + + + + | Narrative | Performed At | + + + | History: 37 years old Male with respiratory failure. Technique: | | | AP upright computer enhance portable radiographic examination of the | | | chest, obtained at 4:25 on 19 October 2017. Prior study for | | | comparison -- 4:10. 18 October 2017. Findings: Cardiomediastinum | | | stable without deviation or enlargement, hilar vessels are somewhat | | | full. Support equipment endotracheal tube and enteric tube in | | | stable radiographic appropriate positions. EKG leads and support | | | tubing eccentric to the patient. Lungs are stably inflated. Stable | | | bilateral pulmonary edema and vascular congestion, differences are | | | thought technical. Stable atelectasis or small infiltrate in the | | | medial right lung base. Given history the possibility of aspiration | | | cannot be fully excluded Bones and soft tissues stable to | | | technique. | | + + + + + | Procedure Note | + + | Miguel, Rad Conversion - 10/04/2018 11:13 AM PDT History: 37 years old Male with | | respiratory failure. Technique: AP upright computer enhance portable radiographic | | examination of the chest, obtained at 4:25 on 19 October 2017. Prior study for | | comparison -- 4:10. 18 October 2017. Findings: Cardiomediastinum stable without | | deviation or enlargement, hilar vessels are somewhat full. Support equipment | | endotracheal tube and enteric tube in stable radiographic appropriate positions. EKG | | leads and support tubing eccentric to the patient. Lungs are stably inflated. Stable | | bilateral pulmonary edema and vascular congestion, differences are thought technical. | | Stable atelectasis or small infiltrate in the medial right lung base. Given history the | | possibility of aspiration cannot be fully excluded Bones and soft tissues stable to | | technique. IMPRESSION: 1. Stable support agreement, without cardiopulmonary change | | | | | |Bones and soft tissues stable to technique. | | | |IMPRESSION: | | | |1. Stable support agreement, without cardiopulmonary change | | | | | + + Procalcitonin (10/19/2017 4:04 AM PDT) + + + + + + | Component | Value | Ref Range | Performed | Pathologist | | | | | At | Signature | + + + + + + | PROCALCITON | 0.09Comment: | ng/mL | EXTERNAL | | | IN | INTERPRETIVE | | LAB | | | | INFORMATION: | | | | | | PROCALCITONIN PCT <= | | | | | | 0.5 ng/mL: Low risk | | | | | | for progression to | | | | | | severe systemic | | | | | | bacterial infection | | | | | | (severe sepsis/septic | | | | | | shock). Does not | | | | | | exclude an infection, | | | | | | because localized | | | | | | infections may be | | | | | | associated with such low | | | | | | levels. If PCT is | | | | | | measured very early | | | | | | after bacterial | | | | | | challenge (usually <6 | | | | | | hours), results may | | | | | | still be low and | | | | | | should re-assess PCT | | | | | | 6-24 hours later. PCT | | | | | | >0.5 and <= 2 ng/mL: | | | | | | Moderate risk for | | | | | | progression to severe | | | | | | systemic infection | | | | | | (severe sepsis/septic | | | | | | shock). Other | | | | | | conditions are known | | | | | | to elevate PCT, patient | | | | | | should be closely | | | | | | monitored both | | | | | | clinically and by | | | | | | re-assessing PCT | | | | | | within 6-24 hours. PCT > | | | | | | 2 ng/mL: High | | | | | | likelihood for | | | | | | progression to severe | | | | | | systemic bacterial | | | | | | infection (severe | | | | | | sepsis/septic shock). | | | | | | PCT >= 10 ng/mL: | | | | | | High likelihood of | | | | | | severe sepsis or septic | | | | | | shock.Testing performed | | | | | | at [facility];[address] [place] [address] | | | | | | [facility];[place] [address] | | | | + + + + + + + + | Specimen | + + | | + + + +---------+ + + | Performing | Address | City/State/Zipcode | Phone Number | | Organization | | | | + +---------+ + + | EXTERNAL LAB | | | | + +---------+ + + External Lab: NOEMY (10/19/2017 4:04 AM PDT) + + + + + + | Component | Value | Ref Range | Performed | Pathologist | | | | | At | Signature | + + + + + + | WBC | 14.11 (H) | 3.80 - 11.00 | EXTERNAL | | | | | K/uL | LAB | | + + + + + + | RED CELL | 4.56 | 4.20 - 5.70 | EXTERNAL | | | COUNT | | M/uL | LAB | | + + + + + + | Hgb | 13.6 | 13.2 - 17.0 | EXTERNAL | | | | | g/dL | LAB | | + + + + + + | Hematocrit, | 40.7 | 39.0 - 50.0 % | EXTERNAL | | | POC | | | LAB | | + + + + + + | MCV | 89.1 | 80.0 - 100.0 fl | EXTERNAL | | | | | | LAB | | + + + + + + | MCH | 29.8 | 27.0 - 34.0 pg | EXTERNAL | | | | | | LAB | | + + + + + + | MCHC | 33.4 | 32.0 - 35.5 | EXTERNAL | | | | | g/dL | LAB | | + + + + + + | RDW-CV | 51.2 | 37 - 53 fl | EXTERNAL | | | | | | LAB | | + + + + + + | Platelet | 251 | 150 - 400 K/uL | EXTERNAL | | | Count | | | LAB | | | Plasma | | | | | + + + + + + | MPV | 9.4 | fl | EXTERNAL | | | | | | LAB | | + + + + + + | Differentia | AUTOMATED | | EXTERNAL | | | l Type | | | LAB | | + + + + + + | % Segmented | 72.54 | % | EXTERNAL | | | | | | LAB | | | Neutrophils | | | | | + + + + + + | % | 8.79 | % | EXTERNAL | | | Lymphocytes | | | LAB | | + + + + + + | % Monocytes | 15.42 | % | EXTERNAL | | | | | | LAB | | + + + + + + | % | 2.77 | % | EXTERNAL | | | Eosinophils | | | LAB | | + + + + + + | % Basophils | 0.48 | % | EXTERNAL | | | | | | LAB | | + + + + + + | Absolute | 10.23 (H) | 1.90 - 7.40 | EXTERNAL | | | Segmented | | K/uL | LAB | | | Neutrophils | | | | | + + + + + + | Absolute | 1.24 | 1.00 - 3.90 | EXTERNAL | | | Lymphocytes | | K/uL | LAB | | + + + + + + | Absolute | 2.18 (H) | 0.00 - 0.80 | EXTERNAL | | | Monocytes | | K/uL | LAB | | + + + + + + | Absolute | 0.39 | 0.00 - 0.50 | EXTERNAL | | | Eosinophils | | K/uL | LAB | | + + + + + + | Absolute | 0.07Comment: Testing | 0.00 - 0.10 | EXTERNAL | | | Basophils | performed at [facility], [address] | [address] | LAB | | | | [address], | | | | | | [place] [id number] | | | | + + + + + + + + | Specimen | + + | Blood specimen | | (specimen) | + + + +---------+ + + | Performing | Address | City/State/Zipcode | Phone Number | | Organization | | | | + +---------+ + + | EXTERNAL LAB | | | | + +---------+ + + Phosphorus (10/19/2017 4:04 AM PDT) + + + + + + | Component | Value | Ref Range | Performed | Pathologist | | | | | At | Signature | + + + + + + | PHOSPHORUS | 2.9Comment: Testing | 2.3 - 4.8 mg/dL | EXTERNAL | | | | performed at [facility], [address] | | LAB | | | | [address], | | | | | | [place] [id number] | | | | + + + + + + + + | Specimen | + + | Blood specimen | | (specimen) | + + + +---------+ + + | Performing | Address | City/State/Zipcode | Phone Number | | Organization | | | | + +---------+ + + | EXTERNAL LAB | | | | + +---------+ + + Magnesium (10/19/2017 4:04 AM PDT) + + + + + + | Component | Value | Ref Range | Performed | Pathologist | | | | | At | Signature | + + + + + + | Magnesium | 2.3Comment: Testing | 1.7 - 2.4 mg/dL | EXTERNAL | | | | performed at [facility], [address] | | LAB | | | | [address], | | | | | | [place] [id number] | | | | + + + + + + + + | Specimen | + + | Blood specimen | | (specimen) | + + + +---------+ + + | Performing | Address | City/State/Zipcode | Phone Number | | Organization | | | | + +---------+ + + | EXTERNAL LAB | | | | + +---------+ + + Basic Metabolic Panel (10/19/2017 4:04 AM PDT) + + + + + + | Component | Value | Ref Range | Performed | Pathologist | | | | | At | Signature | + + + + + + | Na | 142 | 135 - 145 | EXTERNAL | | | | | mmol/L | LAB | | + + + + + + | K | 4.3 | 3.5 - 4.9 | EXTERNAL | | | | | mmol/L | LAB | | + + + + + + | Cl | 110 (H) | 99 - 109 mmol/L | EXTERNAL | | | | | | LAB | | + + + + + + | CO2 | 24 | 23 - 32 mmol/L | EXTERNAL | | | | | | LAB | | + + + + + + | Anion Gap | 12 | 5 - 20 mmol/L | EXTERNAL | | | | | | LAB | | + + + + + + | Glucose, | 107 (H) | 65 - 99 mg/dL | EXTERNAL | | | Fasting | | | LAB | | + + + + + + | BUN | 8 | 8 - 25 mg/dL | EXTERNAL | | | | | | LAB | | + + + + + + | Creatinine | 0.8 | 0.70 - 1.30 | EXTERNAL | | | | | mg/dL | LAB | | + + + + + + | BUN/Creatin | 10 | | EXTERNAL | | | ine Ratio | | | LAB | | + + + + + + | Calcium | 7.7 (L) | 8.5 - 10.5 | EXTERNAL | | | | | mg/dL | LAB | | + + + + + + | Estimated | >60Comment: GFR <60: | mL/min/1.73m2 | EXTERNAL | | | GFR | CHRONIC KIDNEY DISEASE, | | LAB | | | | IF FOUND OVER A 3 MONTH | | | | | | PERIOD.GFR <15: KIDNEY | | | | | | FAILURE.FOR | | | | | | AMERICANS, MULTIPLY THE | | | | | | CALCULATED GFR BY | | | | | | 1.210.This eGFR is | | | | | | calculated using the | | | | | | MDRD IDMS traceable | | | | | | equation.Testing | | | | | | performed at [facility], [address] | | | | | | [facility], | | | | | | [place] [address] | | | | + + + + + + + + | Specimen | + + | Blood specimen | | (specimen) | + + + +---------+ + + | Performing | Address | City/State/Zipcode | Phone Number | | Organization | | | | + +---------+ + + | EXTERNAL LAB | | | | + +---------+ + + Gram Stain, reflex Sputum Culture (10/19/2017 1:04 AM PDT) + + | Specimen | + + | Body fluid sample | | (specimen) | + + + + + | Narrative | Performed At | + + + | Specimen Description TRACHEAL ASPIRATE GRAM | EXTERNAL LAB | | STAIN GREATER THAN 10 WBCS/LPF | | | LESS THAN 10 | | | SEC/LPF 3+ | | | GRAM | | | POSITIVE COCCI CULTURE 4+ | | | | | | STAPHYLOCOCCUS AUREUSAbnormal Suscepibility for - STAPHYLOCOCCUS | | | AUREUS Penicillin G RESISTANT Resistant | | | Clindamycin SUSCEPTIBLESensitive | | | Erythromycin SUSCEPTIBLESensitive | | | Gentamicin SUSCEPTIBLESensitive | | | Levofloxacin SUSCEPTIBLESensitive | | | Moxifloxacin SUSCEPTIBLESensitive Oxacillin | | | SUSCEPTIBLESensitive Tetracycline | | | SUSCEPTIBLESensitive Trimethoprim + | | | SulfamethoxazoleSUSCEPTIBLESensitive Vancomycin | | | SUSCEPTIBLESensitive | | + + + + +---------+ + + | Performing | Address | City/State/Zipcode | Phone Number | | Organization | | | | + +---------+ + + | EXTERNAL LAB | | | | + +---------+ + + Potassium (10/18/2017 7:08 PM PDT) + + + + + + | Component | Value | Ref Range | Performed | Pathologist | | | | | At | Signature | + + + + + + | K | 4.1Comment: Testing | 3.5 - 4.9 | EXTERNAL | | | | performed at [facility];888 | mmol/L | LAB | | | | [address] [facility];[place], [place] | | | | | | [address] | | | | + + + + + + + + | Specimen | + + | Blood specimen | | (specimen) | + + + +---------+ + + | Performing | Address | City/State/Zipcode | Phone Number | | Organization | | | | + +---------+ + + | EXTERNAL LAB | | | | + +---------+ + + XR Chest 1 Vw (10/18/2017 5:39 AM PDT) + + | Specimen | + + | | + + + + + | Impressions | Performed At | + + + | 1. Subtle infiltrate in the medial right lung base, with stable | | | tubes. | | | 7:04 AM | | + + + + + + | Narrative | Performed At | + + + | HISTORY: Respiratory failure. Seizure. COMPARISON: 10/16/17. | | | TECHNIQUE: AP portable film of the chest at 0410 hours | | | FINDINGS: ET tube, NG tube in appropriate position, unchanged. Subtle | | | infiltrative change in the medial right lung base. Left lung is | | | clear. No pneumothorax. Heart size is normal. | | + + + + + | Procedure Note | + + | Miguel, Rad Conversion - 10/04/2018 11:13 AM PDT HISTORY:Respiratory failure. Seizure. | | COMPARISON:10/16/17. TECHNIQUE:AP portable film of the chest at 0410 hours FINDINGS:ET | | tube, NG tube in appropriate position, unchanged. Subtle infiltrative change in the | | medial right lung base. Left lung is clear. No pneumothorax. Heart size is normal. | | IMPRESSION: 1. Subtle infiltrate in the medial right lung base, with stable tubes. | | | |TECHNIQUE: | |AP portable film of the chest at 0410 hours | | | |FINDINGS: | |ET tube, NG tube in appropriate position, unchanged. Subtle infiltrative change in the medi al right lung base. Left lung is clear. No pneumothorax. Heart size is normal. | | | |IMPRESSION: | |1. Subtle infiltrate in the medial right lung base, with stable tubes. | | | | | + + External Lab: CBC (10/18/2017 3:56 AM PDT) + + + + + + | Component | Value | Ref Range | Performed | Pathologist | | | | | At | Signature | + + + + + + | WBC | 18.17 (H) | 3.80 - 11.00 | EXTERNAL | | | | | K/uL | LAB | | + + + + + + | RED CELL | 5.08 | 4.20 - 5.70 | EXTERNAL | | | COUNT | | M/uL | LAB | | + + + + + + | Hgb | 15.1 | 13.2 - 17.0 | EXTERNAL | | | | | g/dL | LAB | | + + + + + + | Hematocrit, | 45.2 | 39.0 - 50.0 % | EXTERNAL | | | POC | | | LAB | | + + + + + + | MCV | 89.1 | 80.0 - 100.0 fl | EXTERNAL | | | | | | LAB | | + + + + + + | MCH | 29.7 | 27.0 - 34.0 pg | EXTERNAL | | | | | | LAB | | + + + + + + | MCHC | 33.3 | 32.0 - 35.5 | EXTERNAL | | | | | g/dL | LAB | | + + + + + + | RDW-CV | 53.8 (H) | 37 - 53 fl | EXTERNAL | | | | | | LAB | | + + + + + + | Platelet | 254 | 150 - 400 K/uL | EXTERNAL | | | Count | | | LAB | | | Plasma | | | | | + + + + + + | MPV | 9.2 | fl | EXTERNAL | | | | | | LAB | | + + + + + + | Differentia | MANUAL | | EXTERNAL | | | l Type | | | LAB | | + + + + + + | Segmented | 70 | % | EXTERNAL | | | Neutrophils | | | LAB | | | Manual | | | | | + + + + + + | % Bands | 12 | % | EXTERNAL | | | | | | LAB | | + + + + + + | Lymphocytes | 5 | % | EXTERNAL | | | Manual | | | LAB | | + + + + + + | Monocytes | 13 | % | EXTERNAL | | | Manual | | | LAB | | + + + + + + | Absolute | 12.72 (H) | 1.90 - 7.40 | EXTERNAL | | | Neutrophils | | K/uL | LAB | | + + + + + + | Bands | 2.18 (H) | 0.00 - 0.20 | EXTERNAL | | | Manual | | K/uL | LAB | | + + + + + + | Absolute | 0.91 (L) | 1.00 - 3.90 | EXTERNAL | | | Lymphocytes | | K/uL | LAB | | + + + + + + | Absolute | 2.36 (H) | 0.00 - 0.80 | EXTERNAL | | | Monocytes | | K/uL | LAB | | + + + + + + | RBC | RBC AND PLT MORPHOLOGY | | EXTERNAL | | | Morphology | APPEAR NORMALComment: | | LAB | | | | Testing performed at | | | | | | [facility], [address] | | | | | | [place] | | | | | | [address] | | | | + + + + + + + + | Specimen | + + | Blood specimen | | (specimen) | + + + +---------+ + + | Performing | Address | City/State/Zipcode | Phone Number | | Organization | | | | + +---------+ + + | EXTERNAL LAB | | | | + +---------+ + + Triglycerides (10/18/2017 3:56 AM PDT) + + + + + + | Component | Value | Ref Range | Performed | Pathologist | | | | | At | Signature | + + + + + + | Triglycerid | 95Comment: Testing | mg/dL | EXTERNAL | | | es | performed at [facility], [address] | | LAB | | | | [place], | | | | | | [place] [address] | | | | + + + + + + + + | Specimen | + + | Blood specimen | | (specimen) | + + + +---------+ + + | Performing | Address | City/State/Zipcode | Phone Number | | Organization | | | | + +---------+ + + | EXTERNAL LAB | | | | + +---------+ + + Phosphorus (10/18/2017 3:56 AM PDT) + + + + + + | Component | Value | Ref Range | Performed | Pathologist | | | | | At | Signature | + + + + + + | PHOSPHORUS | 2.9Comment: Testing | 2.3 - 4.8 mg/dL | EXTERNAL | | | | performed at [facility], [address] | | LAB | | | | [place], | | | | | | [place] [id number] | | | | + + + + + + + + | Specimen | + + | Blood specimen | | (specimen) | + + + +---------+ + + | Performing | Address | City/State/Zipcode | Phone Number | | Organization | | | | + +---------+ + + | EXTERNAL LAB | | | | + +---------+ + + Magnesium (10/18/2017 3:56 AM PDT) + + + + + + | Component | Value | Ref Range | Performed | Pathologist | | | | | At | Signature | + + + + + + | Magnesium | 1.9Comment: Testing | 1.7 - 2.4 mg/dL | EXTERNAL | | | | performed at [facility], [address] | | LAB | | | | [place], | | | | | | [place] [address] | | | | + + + + + + + + | Specimen | + + | Blood specimen | | (specimen) | + + + +---------+ + + | Performing | Address | City/State/Zipcode | Phone Number | | Organization | | | | + +---------+ + + | EXTERNAL LAB | | | | + +---------+ + + Basic Metabolic Panel (10/18/2017 3:56 AM PDT) + + + + + + | Component | Value | Ref Range | Performed | Pathologist | | | | | At | Signature | + + + + + + | Na | 141 | 135 - 145 | EXTERNAL | | | | | mmol/L | LAB | | + + + + + + | K | 3.9 | 3.5 - 4.9 | EXTERNAL | | | | | mmol/L | LAB | | + + + + + + | Cl | 108 | 99 - 109 mmol/L | EXTERNAL | | | | | | LAB | | + + + + + + | CO2 | 25 | 23 - 32 mmol/L | EXTERNAL | | | | | | LAB | | + + + + + + | Anion Gap | 12 | 5 - 20 mmol/L | EXTERNAL | | | | | | LAB | | + + + + + + | Glucose, | 130 (H) | 65 - 99 mg/dL | EXTERNAL | | | Fasting | | | LAB | | + + + + + + | BUN | 6 (L) | 8 - 25 mg/dL | EXTERNAL | | | | | | LAB | | + + + + + + | Creatinine | 0.9 | 0.70 - 1.30 | EXTERNAL | | | | | mg/dL | LAB | | + + + + + + | BUN/Creatin | 7 | | EXTERNAL | | | ine Ratio | | | LAB | | + + + + + + | Calcium | 8.2 (L) | 8.5 - 10.5 | EXTERNAL | | | | | mg/dL | LAB | | + + + + + + | Estimated | >60Comment: GFR <60: | mL/min/1.73m2 | EXTERNAL | | | GFR | CHRONIC KIDNEY DISEASE, | | LAB | | | | IF FOUND OVER A 3 MONTH | | | | | | PERIOD.GFR <15: KIDNEY | | | | | | FAILURE.FOR | | | | | | AMERICANS, MULTIPLY THE | | | | | | CALCULATED GFR BY | | | | | | 1.210.This eGFR is | | | | | | calculated using the | | | | | | MDRD IDMS traceable | | | | | | equation.Testing | | | | | | performed at [facility], [address] | | | | | | [facility], | | | | | | [place] [address] | | | | + + + + + + + + | Specimen | + + | Blood specimen | | (specimen) | + + + +---------+ + + | Performing | Address | City/State/Zipcode | Phone Number | | Organization | | | | + +---------+ + + | EXTERNAL LAB | | | | + +---------+ + + Potassium (10/17/2017 12:08 PM PDT) + + + + + + | Component | Value | Ref Range | Performed | Pathologist | | | | | At | Signature | + + + + + + | K | 4.6Comment: MODERATE | 3.5 - 4.9 | EXTERNAL | | | | HEMOLYSISTesting | mmol/L | LAB | | | | performed at [facility];[address] | | | | | | [facility];[place], [place] | | | | | | [address] | | | | + + + + + + + + | Specimen | + + | Blood specimen | | (specimen) | + + + +---------+ + + | Performing | Address | City/State/Zipcode | Phone Number | | Organization | | | | + +---------+ + + | EXTERNAL LAB | | | | + +---------+ + + Ammonia (10/17/2017 10:39 AM PDT) + + + + + + | Component | Value | Ref Range | Performed | Pathologist | | | | | At | Signature | + + + + + + | Ammonia | 30Comment: Testing | umol/L | EXTERNAL | | | | performed at [facility] | | LAB | | | | [address];[place] | | | | | | [address] | | | | + + + + + + + + | Specimen | + + | Blood specimen | | (specimen) | + + + +---------+ + + | Performing | Address | City/State/Zipcode | Phone Number | | Organization | | | | + +---------+ + + | EXTERNAL LAB | | | | + +---------+ + + Magnesium (10/17/2017 8:28 AM PDT) + + + + + + | Component | Value | Ref Range | Performed | Pathologist | | | | | At | Signature | + + + + + + | Magnesium | 2.4Comment: Testing | 1.7 - 2.4 mg/dL | EXTERNAL | | | | performed at [facility];[address] | | LAB | | | | [address];[place], [place] | | | | | | [address] | | | | + + + + + + + + | Specimen | + + | Blood specimen | | (specimen) | + + + +---------+ + + | Performing | Address | City/State/Zipcode | Phone Number | | Organization | | | | + +---------+ + + | EXTERNAL LAB | | | | + +---------+ + + External Lab: CBC (10/17/2017 4:15 AM PDT) + + + + + + | Component | Value | Ref Range | Performed | Pathologist | | | | | At | Signature | + + + + + + | WBC | 6.94 | 3.80 - 11.00 | EXTERNAL | | | | | K/uL | LAB | | + + + + + + | RED CELL | 4.78 | 4.20 - 5.70 | EXTERNAL | | | COUNT | | M/uL | LAB | | + + + + + + | Hgb | 14.4 | 13.2 - 17.0 | EXTERNAL | | | | | g/dL | LAB | | + + + + + + | Hematocrit, | 42.9 | 39.0 - 50.0 % | EXTERNAL | | | POC | | | LAB | | + + + + + + | MCV | 89.7 | 80.0 - 100.0 fl | EXTERNAL | | | | | | LAB | | + + + + + + | MCH | 30.0 | 27.0 - 34.0 pg | EXTERNAL | | | | | | LAB | | + + + + + + | MCHC | 33.5 | 32.0 - 35.5 | EXTERNAL | | | | | g/dL | LAB | | + + + + + + | RDW-CV | 51.6 | 37 - 53 fl | EXTERNAL | | | | | | LAB | | + + + + + + | Platelet | 282 | 150 - 400 K/uL | EXTERNAL | | | Count | | | LAB | | | Plasma | | | | | + + + + + + | MPV | 9.1 | fl | EXTERNAL | | | | | | LAB | | + + + + + + | Differentia | AUTOMATED | | EXTERNAL | | | l Type | | | LAB | | + + + + + + | % Segmented | 65.25 | % | EXTERNAL | | | | | | LAB | | | Neutrophils | | | | | + + + + + + | % | 17.08 | % | EXTERNAL | | | Lymphocytes | | | LAB | | + + + + + + | % Monocytes | 12.95 | % | EXTERNAL | | | | | | LAB | | + + + + + + | % | 4.04 | % | EXTERNAL | | | Eosinophils | | | LAB | | + + + + + + | % Basophils | 0.68 | % | EXTERNAL | | | | | | LAB | | + + + + + + | Absolute | 4.53 | 1.90 - 7.40 | EXTERNAL | | | Segmented | | K/uL | LAB | | | Neutrophils | | | | | + + + + + + | Absolute | 1.19 | 1.00 - 3.90 | EXTERNAL | | | Lymphocytes | | K/uL | LAB | | + + + + + + | Absolute | 0.90 (H) | 0.00 - 0.80 | EXTERNAL | | | Monocytes | | K/uL | LAB | | + + + + + + | Absolute | 0.28 | 0.00 - 0.50 | EXTERNAL | | | Eosinophils | | K/uL | LAB | | + + + + + + | Absolute | 0.05Comment: Testing | 0.00 - 0.10 | EXTERNAL | | | Basophils | performed at [facility], [address] | K/uL | LAB | | | | [address], | | | | | | [place] [id number] | | | | + + + + + + + + | Specimen | + + | Blood specimen | | (specimen) | + + + +---------+ + + | Performing | Address | City/State/Zipcode | Phone Number | | Organization | | | | + +---------+ + + | EXTERNAL LAB | | | | + +---------+ + + Phosphorus (10/17/2017 4:15 AM PDT) + + + + + + | Component | Value | Ref Range | Performed | Pathologist | | | | | At | Signature | + + + + + + | PHOSPHORUS | 4.1Comment: Testing | 2.3 - 4.8 mg/dL | EXTERNAL | | | | performed at [facility], [address] | | LAB | | | | [place], | | | | | | [place] [address] | | | | + + + + + + + + | Specimen | + + | Blood specimen | | (specimen) | + + + +---------+ + + | Performing | Address | City/State/Zipcode | Phone Number | | Organization | | | | + +---------+ + + | EXTERNAL LAB | | | | + +---------+ + + Magnesium (10/17/2017 4:15 AM PDT) + + + + + + | Component | Value | Ref Range | Performed | Pathologist | | | | | At | Signature | + + + + + + | Magnesium | 2.1Comment: Testing | 1.7 - 2.4 mg/dL | EXTERNAL | | | | performed at [facility], [address] | | LAB | | | | [place], | | | | | | [place] [address] | | | | + + + + + + + + | Specimen | + + | Blood specimen | | (specimen) | + + + +---------+ + + | Performing | Address | City/State/Zipcode | Phone Number | | Organization | | | | + +---------+ + + | EXTERNAL LAB | | | | + +---------+ + + Basic Metabolic Panel (10/17/2017 4:15 AM PDT) + + + + + + | Component | Value | Ref Range | Performed | Pathologist | | | | | At | Signature | + + + + + + | Na | 143 | 135 - 145 | EXTERNAL | | | | | mmol/L | LAB | | + + + + + + | K | 3.6 | 3.5 - 4.9 | EXTERNAL | | | | | mmol/L | LAB | | + + + + + + | Cl | 108 | 99 - 109 mmol/L | EXTERNAL | | | | | | LAB | | + + + + + + | CO2 | 24 | 23 - 32 mmol/L | EXTERNAL | | | | | | LAB | | + + + + + + | Anion Gap | 15 | 5 - 20 mmol/L | EXTERNAL | | | | | | LAB | | + + + + + + | Glucose, | 104 (H) | 65 - 99 mg/dL | EXTERNAL | | | Fasting | | | LAB | | + + + + + + | BUN | 10 | 8 - 25 mg/dL | EXTERNAL | | | | | | LAB | | + + + + + + | Creatinine | 0.9 | 0.70 - 1.30 | EXTERNAL | | | | | mg/dL | LAB | | + + + + + + | BUN/Creatin | 11 | | EXTERNAL | | | ine Ratio | | | LAB | | + + + + + + | Calcium | 7.7 (L) | 8.5 - 10.5 | EXTERNAL | | | | | mg/dL | LAB | | + + + + + + | Estimated | >60Comment: GFR <60: | mL/min/1.73m2 | EXTERNAL | | | GFR | CHRONIC KIDNEY DISEASE, | | LAB | | | | IF FOUND OVER A 3 MONTH | | | | | | PERIOD.GFR <15: KIDNEY | | | | | | FAILURE.FOR | | | | | | AMERICANS, MULTIPLY THE | | | | | | CALCULATED GFR BY | | | | | | 1.210.This eGFR is | | | | | | calculated using the | | | | | | MDRD IDCT traceable | | | | | | equation.Testing | | | | | | performed at [facility], [address] | | | | | | [facility], | | | | | | [place] [address] | | | | + + + + + + + + | Specimen | + + | Blood specimen | | (specimen) | + + + +---------+ + + | Performing | Address | City/State/[facility] | Phone Number | | Organization | | | | + +---------+ + + | EXTERNAL LAB | | | | + +---------+ + + Potassium (10/16/2017 5:53 PM PDT) + + + + + + | Component | Value | Ref Range | Performed | Pathologist | | | | | At | Signature | + + + + + + | K | 3.2 (L)Comment: MODERATE | 3.5 - 4.9 | EXTERNAL | | | | HEMOLYSISTesting | mmol/L | LAB | | | | performed at [facility];[address] | | | | | | [address];[place] | | | | | | [phone] | | | | + + + + + + + + | Specimen | + + | Blood specimen | | (specimen) | + + + +---------+ + + | Performing | Address | City/State/Zipcode | Phone Number | | Organization | | | | + +---------+ + + | EXTERNAL LAB | | | | + +---------+ + + Phosphorus (10/16/2017 5:53 PM PDT) + + + + + + | Component | Value | Ref Range | Performed | Pathologist | | | | | At | Signature | + + + + + + | PHOSPHORUS | 2.0 (L)Comment: Testing | 2.3 - 4.8 mg/dL | EXTERNAL | | | | performed at [facility];[address] | | LAB | | | | [address];[place], [place] | | | | | | [address] | | | | + + + + + + + + | Specimen | + + | Blood specimen | | (specimen) | + + + +---------+ + + | Performing | Address | City/State/Zipcode | Phone Number | | Organization | | | | + +---------+ + + | EXTERNAL LAB | | | | + +---------+ + + Magnesium (10/16/2017 5:53 PM PDT) + + + + + + | Component | Value | Ref Range | Performed | Pathologist | | | | | At | Signature | + + + + + + | Magnesium | 1.5 (L)Comment: MODERATE | 1.7 - 2.4 mg/dL | EXTERNAL | | | | HEMOLYSISTesting | | LAB | | | | performed at [facility];[address] | | | | | | [address];[place] | | | | | | [address] | | | | + + + + + + + + | Specimen | + + | Blood specimen | | (specimen) | + + + +---------+ + + | Performing | Address | City/State/Zipcode | Phone Number | | Organization | | | | + +---------+ + + | EXTERNAL LAB | | | | + +---------+ + + XR Chest 1 Vw (10/16/2017 3:39 PM PDT) + + | Specimen | + + | | + + + + + | Impressions | Performed At | + + + | Tubes and lines in expected position. Lungs are clear. | | | | | + + + + + + | Narrative | Performed At | + + + | [facility]RAVO[facility]ov[facility] 1980 37 years XR CHEST 1 VIEW 10/16/2017 | | | 3:39 PM INDICATION: Tube placement. COMPARISON: October 16 | | | 2017 TECHNIQUE: Chest 1 view, AP view of the chest FINDINGS: | | | Endotracheal tube 5.4 cm above the donald. Enteric tube passing into | | | the stomach. No pneumothorax, no pleural effusion. Lungs are | | | clear. No acute osseous abnormality. Heart size and mediastinal | | | contours are normal. | | + + + + + | Procedure Note | + + | Miguel, Rad Conversion - 10/04/2018 11:13 AM PDT [facility] | | 1980 | | 37 years | | XR CHEST 1 VIEW | | 10/16/2017 3:39 PM | | | | INDICATION: Tube placement. | | | | COMPARISON: October 16, 2017 | | | | TECHNIQUE: Chest 1 view, AP view of the chest | | | | FINDINGS: | | Endotracheal tube 5.4 cm above the donald. Enteric tube passing into the stomach. | | | | No pneumothorax, no pleural effusion. | | | | Lungs are clear. No acute osseous abnormality. | | | | Heart size and mediastinal contours are normal. | | | | IMPRESSION: | | | | Tubes and lines in expected position. Lungs are clear. | | | | | + + Potassium (10/16/2017 1:20 PM PDT) + + + + + + | Component | Value | Ref Range | Performed | Pathologist | | | | | At | Signature | + + + + + + | K | 5.3 (H)Comment: SPECIMEN | 3.5 - 4.9 | EXTERNAL | | | | MODERATELY | mmol/L | LAB | | | | HEMOLYZEDTesting | | | | | | performed at [facility];[address] | | | | | | [address];[place], [place] | | | | | | [address] | | | | + + + + + + + + | Specimen | + + | Blood specimen | | (specimen) | + + + +---------+ + + | Performing | Address | City/State/Zipcode | Phone Number | | Organization | | | | + +---------+ + + | EXTERNAL LAB | | | | + +---------+ + + Phosphorus (10/16/2017 1:20 PM PDT) + + + + + + | Component | Value | Ref Range | Performed | Pathologist | | | | | At | Signature | + + + + + + | PHOSPHORUS | 2.3Comment: Testing | 2.3 - 4.8 mg/dL | EXTERNAL | | | | performed at [facility] | | LAB | | | | [address];[place] | | | | | | [address] | | | | + + + + + + + + | Specimen | + + | Blood specimen | | (specimen) | + + + +---------+ + + | Performing | Address | City/State/Zipcode | Phone Number | | Organization | | | | + +---------+ + + | EXTERNAL LAB | | | | + +---------+ + + Magnesium (10/16/2017 1:20 PM PDT) + + + + + + | Component | Value | Ref Range | Performed | Pathologist | | | | | At | Signature | + + + + + + | Magnesium | 2.2Comment: SPECIMEN | 1.7 - 2.4 mg/dL | EXTERNAL | | | | MODERATELY | | LAB | | | | HEMOLYZEDTesting | | | | | | performed at [facility];[address] | | | | | | [address] [facility];[place], [place] | | | | | | [address] | | | | + + + + + + + + | Specimen | + + | Blood specimen | | (specimen) | + + + +---------+ + + | Performing | Address | City/State/Zipcode | Phone Number | | Organization | | | | + +---------+ + + | EXTERNAL LAB | | | | + +---------+ + + XR Chest 1 Vw (10/16/2017 9:29 AM PDT) + + | Specimen | + + | | + + + + + | Impressions | Performed At | + + + | 1. Tubes and lines in expected position. | | + + + + + + | Narrative | Performed At | + + + | [facility]VO [facility] 1980 37 years XR CHEST 1 VIEW 10/16/2017 | | | 9:29 AM INDICATION: Tube and line position. COMPARISON: September | | | 2017 TECHNIQUE: Chest 1 view, AP view of the chest | | | FINDINGS: Endotracheal tube 4.1 cm above the donald. Enteric tube | | | passing below the level of the diaphragm. No pneumothorax, no | | | pleural effusion. No lung consolidation. No acute osseous | | | abnormality. | | + + + + -------+ | Procedure Note | + -------+ | Samir Rviera - 10/04/2018 11:13 AM PDT [facility]RAVO CARL/ yearsXR | | CHEST 1 VIEW10/16/2017 9:29 AM INDICATION: Tube and line position. COMPARISON: October 14 | | 2017 TECHNIQUE: Chest 1 view, AP view of the chest FINDINGS:Endotracheal tube 4.1 cm | | above the donald. Enteric tube passing below the level of the diaphragm. No | | pneumothorax, no pleural effusion. No lung consolidation. No acute osseous abnormality. | | IMPRESSION: 1. Tubes and lines in expected position. | | | |COMPARISON: October 14, 2017 | | | |TECHNIQUE: Chest 1 view, AP view of the chest | | | |FINDINGS: | |Endotracheal tube 4.1 cm above the donald. Enteric tube passing below the level of the diap hragm. | | | |No pneumothorax, no pleural effusion. | | | |No lung consolidation. | | | |No acute osseous abnormality. | | | |IMPRESSION: | |1. Tubes and lines in expected position. | | | | | + -------+ External Lab: CBC (10/16/2017 4:07 AM PDT) + + + + + + | Component | Value | Ref Range | Performed | Pathologist | | | | | At | Signature | + + + + + + | WBC | 8.64 | 3.80 - 11.00 | EXTERNAL | | | | | K/uL | LAB | | + + + + + + | RED CELL | 5.15 | 4.20 - 5.70 | EXTERNAL | | | COUNT | | M/uL | LAB | | + + + + + + | Hgb | 15.5 | 13.2 - 17.0 | EXTERNAL | | | | | g/dL | LAB | | + + + + + + | Hematocrit, | 46.0 | 39.0 - 50.0 % | EXTERNAL | | | POC | | | LAB | | + + + + + + | MCV | 89.3 | 80.0 - 100.0 fl | EXTERNAL | | | | | | LAB | | + + + + + + | MCH | 30.1 | 27.0 - 34.0 pg | EXTERNAL | | | | | | LAB | | + + + + + + | MCHC | 33.7 | 32.0 - 35.5 | EXTERNAL | | | | | g/dL | LAB | | + + + + + + | RDW-CV | 52.9 | 37 - 53 fl | EXTERNAL | | | | | | LAB | | + + + + + + | Platelet | 284 | 150 - 400 K/uL | EXTERNAL | | | Count | | | LAB | | | Plasma | | | | | + + + + + + | MPV | 9.4 | fl | EXTERNAL | | | | | | LAB | | + + + + + + | Differentia | AUTOMATED | | EXTERNAL | | | l Type | | | LAB | | + + + + + + | % Segmented | 67.46 | % | EXTERNAL | | | | | | LAB | | | Neutrophils | | | | | + + + + + + | % | 18.56 | % | EXTERNAL | | | Lymphocytes | | | LAB | | + + + + + + | % Monocytes | 9.91 | % | EXTERNAL | | | | | | LAB | | + + + + + + | % | 3.38 | % | EXTERNAL | | | Eosinophils | | | LAB | | + + + + + + | % Basophils | 0.69 | % | EXTERNAL | | | | | | LAB | | + + + + + + | Absolute | 5.83 | 1.90 - 7.40 | EXTERNAL | | | Segmented | | K/uL | LAB | | | Neutrophils | | | | | + + + + + + | Absolute | 1.60 | 1.00 - 3.90 | EXTERNAL | | | Lymphocytes | | K/uL | LAB | | + + + + + + | Absolute | 0.86 (H) | 0.00 - 0.80 | EXTERNAL | | | Monocytes | | K/uL | LAB | | + + + + + + | Absolute | 0.29 | 0.00 - 0.50 | EXTERNAL | | | Eosinophils | | K/uL | LAB | | + + + + + + | Absolute | 0.06Comment: Testing | 0.00 - 0.10 | EXTERNAL | | | Basophils | performed at [facility], [address] | K/uL | LAB | | | | [address], | | | | | | [place] [address] | | | | + + + + + + + + | Specimen | + + | Blood specimen | | (specimen) | + + + +---------+ + + | Performing | Address | City/State/Zipcode | Phone Number | | Organization | | | | + +---------+ + + | EXTERNAL LAB | | | | + +---------+ + + Phosphorus (10/16/2017 4:07 AM PDT) + + + + + + | Component | Value | Ref Range | Performed | Pathologist | | | | | At | Signature | + + + + + + | PHOSPHORUS | 3.2Comment: Testing | 2.3 - 4.8 mg/dL | EXTERNAL | | | | performed at [facility] | | LAB | | | | [facility];[place], [place] | | | | | | [address] | | | | + + + + + + + + | Specimen | + + | Blood specimen | | (specimen) | + + + +---------+ + + | Performing | Address | City/State/Zipcode | Phone Number | | Organization | | | | + +---------+ + + | EXTERNAL LAB | | | | + +---------+ + + Magnesium (10/16/2017 4:07 AM PDT) + + + + + + | Component | Value | Ref Range | Performed | Pathologist | | | | | At | Signature | + + + + + + | Magnesium | 2.0Comment: Testing | 1.7 - 2.4 mg/dL | EXTERNAL | | | | performed at [facility];[address] | | LAB | | | | [address];[place] | | | | | | [address] | | | | + + + + + + + + | Specimen | + + | Blood specimen | | (specimen) | + + + +---------+ + + | Performing | Address | City/State/Zipcode | Phone Number | | Organization | | | | + +---------+ + + | EXTERNAL LAB | | | | + +---------+ + + CK Total (10/16/2017 4:07 AM PDT) + + + + + + | Component | Value | Ref Range | Performed | Pathologist | | | | | At | Signature | + + + + + + | CK, Total | 1155 (H)Comment: Testing | 55 - 400 U/L | EXTERNAL | | | | performed at [facility];[address] | | LAB | | | | [address];[place], [place] | | | | | | [address] | | | | + + + + + + + + | Specimen | + + | Blood specimen | | (specimen) | + + + +---------+ + + | Performing | Address | City/State/Zipcode | Phone Number | | Organization | | | | + +---------+ + + | EXTERNAL LAB | | | | + +---------+ + + Hepatic Function Panel (10/16/2017 4:07 AM PDT) + + + + + + | Component | Value | Ref Range | Performed | Pathologist | | | | | At | Signature | + + + + + + | Protein, | 7.7 | 6.3 - 8.2 g/dL | EXTERNAL | | | Total | | | LAB | | + + + + + + | Albumin | 3.3 (L) | 3.6 - 5.0 g/dL | EXTERNAL | | | | | | LAB | | + + + + + + | Bilirubin | 0.7 | 0.1 - 1.5 mg/dL | EXTERNAL | | | Total | | | LAB | | + + + + + + | Bilirubin | 0.2 | 0.0 - 0.3 mg/dL | EXTERNAL | | | Direct | | | LAB | | + + + + + + | ALP, | 84 | 35 - 115 U/L | EXTERNAL | | | External | | | LAB | | + + + + + + | AST | 52 (H) | 10 - 45 U/L | EXTERNAL | | | | | | LAB | | + + + + + + | ALT | 33Comment: Testing | 10 - 65 U/L | EXTERNAL | | | | performed at [facility];[address] | | LAB | | | | [address];[place] | | | | | | [address] | | | | + + + + + + + + | Specimen | + + | | + + + +---------+ + + | Performing | Address | City/State/Zipcode | Phone Number | | Organization | | | | + +---------+ + + | EXTERNAL LAB | | | | + +---------+ + + Basic Metabolic Panel (10/16/2017 4:07 AM PDT) + + + + + + | Component | Value | Ref Range | Performed | Pathologist | | | | | At | Signature | + + + + + + | Na | 143 | 135 - 145 | EXTERNAL | | | | | mmol/L | LAB | | + + + + + + | K | 4.0 | 3.5 - 4.9 | EXTERNAL | | | | | mmol/L | LAB | | + + + + + + | Cl | 109 | 99 - 109 mmol/L | EXTERNAL | | | | | | LAB | | + + + + + + | CO2 | 24 | 23 - 32 mmol/L | EXTERNAL | | | | | | LAB | | + + + + + + | Anion Gap | 14 | 5 - 20 mmol/L | EXTERNAL | | | | | | LAB | | + + + + + + | Glucose, | 101 (H) | 65 - 99 mg/dL | EXTERNAL | | | Fasting | | | LAB | | + + + + + + | BUN | 10 | 8 - 25 mg/dL | EXTERNAL | | | | | | LAB | | + + + + + + | Creatinine | 1.0 | 0.70 - 1.30 | EXTERNAL | | | | | mg/dL | LAB | | + + + + + + | BUN/Creatin | 10 | | EXTERNAL | | | ine Ratio | | | LAB | | + + + + + + | Calcium | 8.4 (L) | 8.5 - 10.5 | EXTERNAL | | | | | mg/dL | LAB | | + + + + + + | Estimated | >60Comment: GFR <60: | mL/min/1.73m2 | EXTERNAL | | | GFR | CHRONIC KIDNEY DISEASE, | | LAB | | | | IF FOUND OVER A 3 MONTH | | | | | | PERIOD.GFR <15: KIDNEY | | | | | | FAILURE.FOR | | | | | | AMERICANS, MULTIPLY THE | | | | | | CALCULATED GFR BY | | | | | | 1.210.This eGFR is | | | | | | calculated using the | | | | | | MDRD IDMS traceable | | | | | | equation.Testing | | | | | | performed at [facility];[address] | | | | | | [facility];[place], [place] | | | | | | [address] | | | | + + + + + + + + | Specimen | + + | Blood specimen | | (specimen) | + + + +---------+ + + | Performing | Address | City/State/Zipcode | Phone Number | | Organization | | | | + +---------+ + + | EXTERNAL LAB | | | | + +---------+ + + External Lab: CBC (10/15/2017 4:02 AM PDT) + + + + + + | Component | Value | Ref Range | Performed | Pathologist | | | | | At | Signature | + + + + + + | WBC | 9.42 | 3.80 - 11.00 | EXTERNAL | | | | | K/uL | LAB | | + + + + + + | RED CELL | 4.60 | 4.20 - 5.70 | EXTERNAL | | | COUNT | | M/uL | LAB | | + + + + + + | Hgb | 13.8 | 13.2 - 17.0 | EXTERNAL | | | | | g/dL | LAB | | + + + + + + | Hematocrit, | 41.2 | 39.0 - 50.0 % | EXTERNAL | | | POC | | | LAB | | + + + + + + | MCV | 89.6 | 80.0 - 100.0 fl | EXTERNAL | | | | | | LAB | | + + + + + + | MCH | 29.9 | 27.0 - 34.0 pg | EXTERNAL | | | | | | LAB | | + + + + + + | MCHC | 33.4 | 32.0 - 35.5 | EXTERNAL | | | | | g/dL | LAB | | + + + + + + | RDW-CV | 51.2 | 37 - 53 fl | EXTERNAL | | | | | | LAB | | + + + + + + | Platelet | 262 | 150 - 400 K/uL | EXTERNAL | | | Count | | | LAB | | | Plasma | | | | | + + + + + + | MPV | 9.0 | fl | EXTERNAL | | | | | | LAB | | + + + + + + | Differentia | AUTOMATED | | EXTERNAL | | | l Type | | | LAB | | + + + + + + | % Segmented | 71.85 | % | EXTERNAL | | | | | | LAB | | | Neutrophils | | | | | + + + + + + | % | 14.26 | % | EXTERNAL | | | Lymphocytes | | | LAB | | + + + + + + | % Monocytes | 11.72 | % | EXTERNAL | | | | | | LAB | | + + + + + + | % | 1.50 | % | EXTERNAL | | | Eosinophils | | | LAB | | + + + + + + | % Basophils | 0.67 | % | EXTERNAL | | | | | | LAB | | + + + + + + | Absolute | 6.77 | 1.90 - 7.40 | EXTERNAL | | | Segmented | | K/uL | LAB | | | Neutrophils | | | | | + + + + + + | Absolute | 1.34 | 1.00 - 3.90 | EXTERNAL | | | Lymphocytes | | K/uL | LAB | | + + + + + + | Absolute | 1.10 (H) | 0.00 - 0.80 | EXTERNAL | | | Monocytes | | K/uL | LAB | | + + + + + + | Absolute | 0.14 | 0.00 - 0.50 | EXTERNAL | | | Eosinophils | | K/uL | LAB | | + + + + + + | Absolute | 0.06Comment: Testing | 0.00 - 0.10 | EXTERNAL | | | Basophils | performed at [facility], [address] | K/uL | LAB | | | | [address], | | | | | | [place] [address] | | | | + + + + + + + + | Specimen | + + | Blood specimen | | (specimen) | + + + +---------+ + + | Performing | Address | City/State/Zipcode | Phone Number | | Organization | | | | + +---------+ + + | EXTERNAL LAB | | | | + +---------+ + + Phosphorus (10/15/2017 4:02 AM PDT) + + + + + + | Component | Value | Ref Range | Performed | Pathologist | | | | | At | Signature | + + + + + + | PHOSPHORUS | 2.6Comment: Testing | 2.3 - 4.8 mg/dL | EXTERNAL | | | | performed at [facility], [address] | | LAB | | | | [address], | | | | | | [place] [address] | | | | + + + + + + + + | Specimen | + + | Blood specimen | | (specimen) | + + + +---------+ + + | Performing | Address | City/State/Zipcode | Phone Number | | Organization | | | | + +---------+ + + | EXTERNAL LAB | | | | + +---------+ + + Magnesium (10/15/2017 4:02 AM PDT) + + + + + + | Component | Value | Ref Range | Performed | Pathologist | | | | | At | Signature | + + + + + + | Magnesium | 2.4Comment: Testing | 1.7 - 2.4 mg/dL | EXTERNAL | | | | performed at [facility], [address] | | LAB | | | | [address], | | | | | | [place] [address] | | | | + + + + + + + + | Specimen | + + | Blood specimen | | (specimen) | + + + +---------+ + + | Performing | Address | City/State/Zipcode | Phone Number | | Organization | | | | + +---------+ + + | EXTERNAL LAB | | | | + +---------+ + + CK Total (10/15/2017 4:02 AM PDT) + + + + + + | Component | Value | Ref Range | Performed | Pathologist | | | | | At | Signature | + + + + + + | CK, Total | 1764 (H)Comment: Testing | 55 - 400 U/L | EXTERNAL | | | | performed at [facility];[address] | | LAB | | | | [address];[place], [place] | | | | | | [address] | | | | + + + + + + + + | Specimen | + + | Blood specimen | | (specimen) | + + + +---------+ + + | Performing | Address | City/State/Zipcode | Phone Number | | Organization | | | | + +---------+ + + | EXTERNAL LAB | | | | + +---------+ + + Basic Metabolic Panel (10/15/2017 4:02 AM PDT) + + + + + + | Component | Value | Ref Range | Performed | Pathologist | | | | | At | Signature | + + + + + + | Na | 145 | 135 - 145 | EXTERNAL | | | | | mmol/L | LAB | | + + + + + + | K | 3.7 | 3.5 - 4.9 | EXTERNAL | | | | | mmol/L | LAB | | + + + + + + | Cl | 111 (H) | 99 - 109 mmol/L | EXTERNAL | | | | | | LAB | | + + + + + + | CO2 | 21 (L) | 23 - 32 mmol/L | EXTERNAL | | | | | | LAB | | + + + + + + | Anion Gap | 17 | 5 - 20 mmol/L | EXTERNAL | | | | | | LAB | | + + + + + + | Glucose, | 80 | 65 - 99 mg/dL | EXTERNAL | | | Fasting | | | LAB | | + + + + + + | BUN | 15 | 8 - 25 mg/dL | EXTERNAL | | | | | | LAB | | + + + + + + | Creatinine | 0.9 | 0.70 - 1.30 | EXTERNAL | | | | | mg/dL | LAB | | + + + + + + | BUN/Creatin | 17 | | EXTERNAL | | | ine Ratio | | | LAB | | + + + + + + | Calcium | 8.0 (L) | 8.5 - 10.5 | EXTERNAL | | | | | mg/dL | LAB | | + + + + + + | Estimated | >60Comment: GFR <60: | mL/min/1.73m2 | EXTERNAL | | | GFR | CHRONIC KIDNEY DISEASE, | | LAB | | | | IF FOUND OVER A 3 MONTH | | | | | | PERIOD.GFR <15: KIDNEY | | | | | | FAILURE.FOR | | | | | | AMERICANS, MULTIPLY THE | | | | | | CALCULATED GFR BY | | | | | | 1.210.This eGFR is | | | | | | calculated using the | | | | | | MDRD IDMS traceable | | | | | | equation.Testing | | | | | | performed at [facility], [address] | | | | | | [facility] [place] [address], | | | | | | [place] [address] | | | | + + + + + + + + | Specimen | + + | Blood specimen | | (specimen) | + + + +---------+ + + | Performing | Address | City/State/Zipcode | Phone Number | | Organization | | | | + +---------+ + + | EXTERNAL LAB | | | | + +---------+ + + Lactic Acid (10/14/2017 3:28 PM PDT) + + + + + + | Component | Value | Ref Range | Performed | Pathologist | | | | | At | Signature | + + + + + + | Lactate | 0.9Comment: Testing | 0.4 - 2.0 | EXTERNAL | | | | performed at [facility];[address] | mmol/L | LAB | | | | [address];[place] | | | | | | [address] | | | | + + + + + + + + | Specimen | + + | Blood specimen | | (specimen) | + + + +---------+ + + | Performing | Address | City/State/Zipcode | Phone Number | | Organization | | | | + +---------+ + + | EXTERNAL LAB | | | | + +---------+ + + CK Total (10/14/2017 3:27 PM PDT) + + + + + + | Component | Value | Ref Range | Performed | Pathologist | | | | | At | Signature | + + + + + + | CK, Total | 2100 (H)Comment: Testing | 55 - 400 U/L | EXTERNAL | | | | performed at [facility];[address] | | LAB | | | | [address];[place], [place] | | | | | | [address] | | | | + + + + + + + + | Specimen | + + | Blood specimen | | (specimen) | + + + +---------+ + + | Performing | Address | City/State/Zipcode | Phone Number | | Organization | | | | + +---------+ + + | EXTERNAL LAB | | | | + +---------+ + + Basic Metabolic Panel (10/14/2017 3:27 PM PDT) + + + + + + | Component | Value | Ref Range | Performed | Pathologist | | | | | At | Signature | + + + + + + | Na | 144 | 135 - 145 | EXTERNAL | | | | | mmol/L | LAB | | + + + + + + | K | 3.8 | 3.5 - 4.9 | EXTERNAL | | | | | mmol/L | LAB | | + + + + + + | Cl | 113 (H) | 99 - 109 mmol/L | EXTERNAL | | | | | | LAB | | + + + + + + | CO2 | 23 | 23 - 32 mmol/L | EXTERNAL | | | | | | LAB | | + + + + + + | Anion Gap | 12 | 5 - 20 mmol/L | EXTERNAL | | | | | | LAB | | + + + + + + | Glucose, | 105 (H) | 65 - 99 mg/dL | EXTERNAL | | | Fasting | | | LAB | | + + + + + + | BUN | 19 | 8 - 25 mg/dL | EXTERNAL | | | | | | LAB | | + + + + + + | Creatinine | 0.99 | 0.70 - 1.30 | EXTERNAL | | | | | mg/dL | LAB | | + + + + + + | BUN/Creatin | 19 | | EXTERNAL | | | ine Ratio | | | LAB | | + + + + + + | Calcium | 7.8 (L) | 8.5 - 10.5 | EXTERNAL | | | | | mg/dL | LAB | | + + + + + + | Estimated | >60Comment: GFR <60: | mL/min/1.73m2 | EXTERNAL | | | GFR | CHRONIC KIDNEY DISEASE, | | LAB | | | | IF FOUND OVER A 3 MONTH | | | | | | PERIOD.GFR <15: KIDNEY | | | | | | FAILURE.FOR | | | | | | AMERICANS, MULTIPLY THE | | | | | | CALCULATED GFR BY | | | | | | 1.210.This eGFR is | | | | | | calculated using the | | | | | | MDRD IDMS traceable | | | | | | equation.Testing | | | | | | performed at [facility];[address] | | | | | | [facility];[place], [place] | | | | | | [address] | | | | + + + + + + + + | Specimen | + + | Blood specimen | | (specimen) | + + + +---------+ + + | Performing | Address | City/State/Zipcode | Phone Number | | Organization | | | | + +---------+ + + | EXTERNAL LAB | | | | + +---------+ + + XR Chest 1 Vw (10/14/2017 1:11 PM PDT) + + | Specimen | + + | | + + + + + | Impressions | Performed At | + + + | 1. Support lines and tubes are in satisfactory position. | | | | | + + + + + + | Narrative | Performed At | + + + | [facility] XR CHEST 1 VIEW 10/14/2017 1:11 PM HISTORY: | | | 37 years. Male. Seizures. Assess line and tube placement. | | | TECHNIQUE: 1 view of the chest obtained at 1305 hours. | | | COMPARISON: 10/14/2017. FINDINGS: The tip of the endotracheal | | | tube is 4.9 cm by the donald. Nasogastric tube seen with its tip in | | | the stomach. Overlying EKG leads and a tubing noted. The heart is | | | normal in size. The lungs are normally expanded. The pulmonary | | | vascular pattern is normal. No acute airspace disease, parenchymal | | | nodule, mass, pleural effusion or pneumothorax is noted. No hilar | | | adenopathy is seen. The osseous structures are intact. | | + + + + + | Procedure Note | + + | Miguel, Rad Conversion - 10/04/2018 11:13 AM PDT [facility] CHEST 1 | | VIEW10/14/2017 1:11 PM HISTORY:37 years. Male. Seizures. Assess line and tube | | placement. TECHNIQUE:1 view of the chest obtained at 1305 hours. COMPARISON:10/14/2017. | | FINDINGS:The tip of the endotracheal tube is 4.9 cm by the donald. Nasogastric tube | | seen with its tip in the stomach. Overlying EKG leads and a tubing noted.The heart is | | normal in size. The lungs are normally expanded. The pulmonary vascular pattern is | | normal. No acute airspace disease, parenchymal nodule, mass, pleural effusion or | | pneumothorax is noted. No hilar adenopathy is seen. The osseous structures are intact. | | IMPRESSION: 1. Support lines and tubes are in satisfactory position. Electronically | | signed by Edward Iuliano, DO on 10/14/2017 1:18 PM | |COMPARISON: | |10/14/2017. | | | |FINDINGS: | |The tip of the endotracheal tube is 4.9 cm by the donald. Nasogastric tube seen with its t ip in the stomach. Overlying EKG leads and a tubing noted. | |The heart is normal in size. The lungs are normally expanded. The pulmonary vascular purvi dionne is normal. No acute airspace disease, parenchymal nodule, mass, pleural effusion or pne umothorax is noted. No hilar adenopathy is seen. The osseous | |structures are intact. | | | |IMPRESSION: | |1. Support lines and tubes are in satisfactory position. | | | | | + + MRSA NAAT (10/14/2017 12:46 PM PDT) + + | Specimen | + + | | + + + + + | Narrative | Performed At | + + + | SOURCE NARES(NOSE) MRSA | EXTERNAL LAB | | PCR NEGATIVE Testing | | | performed at [facility];[address] [place] [address];[place] [address] | | + + + + +---------+ + + | Performing | Address | City/State/Zipcode | Phone Number | | Organization | | | | + +---------+ + + | EXTERNAL LAB | | | | + +---------+ + + POC Glucose (10/14/2017 12:14 PM PDT) + + + + + + | Component | Value | Ref Range | Performed | Pathologist | | | | | At | Signature | + + + + + + | Glucose, | 98Comment: Testing | 65 - 99 mg/dL | EXTERNAL | | | Fingerstick | performed at [facility];[address] | | LAB | | | | [address];[place] | | | | | | [address] | | | | + + + + + + + + | Specimen | + + | | + + + +---------+ + + | Performing | Address | City/State/Zipcode | Phone Number | | Organization | | | | + +---------+ + + | EXTERNAL LAB | | | | + +---------+ + + Gram Stain, reflex Sputum Culture (10/14/2017 12:10 PM PDT) + + | Specimen | + + | Body fluid sample | | (specimen) | + + + + + | Narrative | Performed At | + + + | Specimen Description TRACHEAL ASPIRATE GRAM | EXTERNAL LAB | | STAIN GREATER THAN 10 WBCS/LPF | | | LESS THAN 10 | | | SEC/LPF 3+ | | | GRAM | | | POSITIVE COCCI 3+ | | | GRAM | | | POSITIVE RODS 1+ | | | GRAM | | | NEGATIVE RODS CULTURE 2+ | | | NORMAL | | | UPPER RESPIRATORY YOSEPH | | | NO FURTHER WORKUP | | + + + + +---------+ + + | Performing | Address | City/State/Zipcode | Phone Number | | Organization | | | | + +---------+ + + | EXTERNAL LAB | | | | + +---------+ + + documented in this encounter Visit Diagnoses + + | Diagnosis | + + | Polysubstance abuse (HCC) Other, mixed, or unspecified nondependent drug abuse, | | unspecified | + + | Seizure (HCC) Other convulsions | + + | Acute metabolic encephalopathy | + + documented in this encounter
--- OUTSIDE RECORDS SUMMARY | ~2019-02-07 | XMS | Encounter Summary ---
Demographics + + + | Address | [address] | | | [place] [address] | + + + | Home Phone | | + + + | Preferred Language | Unknown | + + + | Marital Status | Single | + + + | Shinto Affiliation | Unknown | + + + | Race | Unknown | + + + | Ethnic Group | Unknown | + + + Author + + + | Author | [facility] | | | and [place] | + + + | Organization | [facility] | | | and [place] [...] Team Providers + +------+ + | Care Certified Ophthalmic Surgical Assistant Name | Role | Phone | + [...] Provider Unknown | | | | | [place] | | | | | | [phone] | (Fax) | | | | | [phone] | | | +--------+ + + + [...]
--- OUTSIDE RECORDS SUMMARY | ~2019-02-07 | XMS | Encounter Summary ---
Demographics + + + | Address | [address] | | | [place] [address] | + + + | Home Phone | | + + + | Preferred Language | Unknown | + + + | Marital Status | Single | + + + | Nondenominational Affiliation | Unknown | + + + | Race | Unknown | + + + | Ethnic Group | Unknown | + + + Author + + + | Author | [facility] | | | and [place] | + + + | Organization | [facility] | | | and [place] | [...] Team Providers + +------+ + | Care Barking Machine Feeder Name | Role | Phone | + [...] Provider Unknown | | | | | [place] | | | | | | [phone] | (Fax) | | | | | [phone] | | | +--------+ + + + [...]
--- OUTSIDE RECORDS SUMMARY | ~2019-02-07 | XMS | Encounter Summary ---
Demographics + + + | Address | [address] | | | [place] [address] | + + + | Home Phone | | + + + | Preferred Language | Unknown | + + + | Marital Status | Single | + + + | Buddhism Affiliation | Unknown | + + + | Race | Unknown | + + + | Ethnic Group | Unknown | + + + Author + + + | Author | [facility] | | | and [place] | + + + | Organization | [facility] | | | and [place] [...] Team Providers + +------+ + | Care Predatory Animal Trapper Name | Role | Phone | + [...] Provider Unknown | | | | | [place] | | | | | | [phone] | (Fax) | | | | | [phone] | | | +--------+ + + + [...]
--- OUTSIDE RECORDS SUMMARY | ~2019-02-07 | XMS | Encounter Summary ---
Demographics + + + | Address | [address] | | | [place] [address] | + + + | Home Phone | | + + + | Preferred Language | Unknown | + + + | Marital Status | Single | + + + | Bahai Affiliation | Unknown | + + + | Race | Unknown | + + + | Ethnic Group | Unknown | + + + Author + + + | Author | [facility] | | | and [place] | + + + | Organization | [facility] [...] Team Providers + +------+ + | Care Sheet Rock Applicator Name | Role | Phone | + +------+ + PCP | Unavailable | + +------+ + Encounter Details +--------+ + + + + | Date | Type | Department | Care Team | Description | +--------+ + + + + | 10/14/ | Hospital | [facility] GENERIC IP | Conversion | Other headache | | 2018 | Encounter | CONVERSION DEP [address] | Transaction, | syndrome | | | | [address] | Provider Unknown | | | | | [place] | | | | | | [phone] | (Fax) | | | | | | | | +--------+ + + + [...] | + +--------+ + + + | CT HEAD WO CONTRAST | Routin | 10/14/2017 | | Results for this | | | e | 11:19 AM | | procedure are in the | | | | PDT | | results section. | + +--------+ + + + documented in this encounter Results CT Head wo Contrast (10/14/2017 11:19 AM PDT) + + | [...] + | Diagnosis | + + | Other headache syndrome | + + documented in this encounter"
--- OUTSIDE RECORDS SUMMARY | ~2019-02-07 | XMS | Encounter Summary ---
Demographics + + + | Address | [address] | | | [place] [address] | + + + | Home Phone | | + + + | Preferred Language | Unknown | + + + | Marital Status | Single | + + + | Voodoo Affiliation | Unknown | + + + | Race | Unknown | + + + | Ethnic Group | Unknown | + + + Author + + + | Author | [facility] | | | and Antwanana | + + + | Organization | [facility] | | | and Antwanana [...] Team Providers + +------+ + | Care Architectural Draftsperson Name | Role | Phone | + +------+ + PCP | Unavailable | + +------+ + Encounter Details +--------+ + + + + | Date | Type | Department | Care Team | Description | +--------+ + + + + | 10/14/ | Hospital | [facility] | Deni Shearer | Polysubstance abuse; | | 2018 - | Encounter | [facility] | MD Alber Elise | Seizure (HCC); | | | | INTENSIVE CARE UNIT | [place], [place] | Acute metabolic | | 10/25/ | | [address] [facility] | [address] | encephalopathy | | 2018 | | [place], [place] | | | | | | [address] | | | | | | [phone] | | | +--------+ + + + [...] Samaniego at 10/25/17712 Author: LOLLY Samaniego Service: Operations Support Professionals Author Type: Advanced Registered Mickey se Practitioner Filed: 11/01/172048 Date of Service: 10/25/17712 Status: Signed Deck Scaler: LOLLY Samaniego (Advanced Registered Nurse Practitioner) [facility] Service: Operations Support Professionals Discharge Summary Bravo Henry 37 y.o. Date [...] prese nts as a transfer from [facility] Emergency Department. Per report the patient was in the process of incarceration and was noted to have altered mental status and began havin g active seizure activity described as tonic clonic movements lasting approximately 45 minut . He was transported to [facility] and was intubated for airway [...] ev aluation, the patient was transferred to [facility] ICU for further evaluation and treatment. [...] listen to the benefits of staying in [facility] at this time and are also unwilling [...] (none) Author Type: Registered Nurse Filed: 10/25/17 0723 Date of Service: 10/25/17712 Status: Signed Deck Scaler: Opal Weathers RN (Registered Nurse) This RN was called to patients' room by PALLIATIVE CARE NURSE. Patient was walking around in room stating [...] at 10/25/17 0308 Author: LOLLY Samaniego Service: Operations Support [employer]essionals Author Type: Advanced Registered Mickey se Practitioner Filed: 10/25/17 0636 Date of Service: 10/25/17 0308 Status: Signed Deck Scaler: LOLLY Samaniego (Advanced Registered Nurse Practitioner) [facility] Service: Operations Support Professionals Progress Note Bravo Henry 37 y.o. Hospital Day: LOS: 11 days Post-Op Day: * No surgery found * Consulting Physicians Treatment Team: Admitting Provider: Deni Shearer MD SUBJECTIVE Patient Summary: Per Palmira Givens's H&P: "The patient is a 37 y.o. male with unknown history other than polysubstance abuse who presents as a transfer from [facility] Emergency Department. Per report the patient was in the process of incarceration and was no lisa to have altered mental status and began having active seizure activity described as pepe c clonic movements lasting approximately 45 minutes. He was transported to [facility] and was intubated for airway protection. [...] initial evaluation, the patient was transferred to [facility] ICU for further evaluation and treatment. Of [...] Samaniego 10/25/2017 6:29 AM Ludy Callahan MS CCC-COUNSELOR CAMP - 10/24/2017 12:57 PM PDTFormatting of this note might be different from the esperanza ginal. Therapy Progress Note by Ludy Maciel MS CCC-COUNSELOR CAMP at 10/24/17 1257 Author: Ludy Maciel MS CCC-COUNSELOR CAMP Service: (none) Author Type: Speech and Language Pa thologist Filed: 10/24/17 1259 Date of Service: 10/24/17 1257 Status: Signed Deck Scaler: Ludy Maciel MS CCC-COUNSELOR CAMP (Speech and Language Pathologist) 10/24/17 1257 COUNSELOR CAMP Last Visit COUNSELOR CAMP Received On 10/24/17 Requires COUNSELOR CAMP Follow Up Unavailable (pt too sleepy from [...] at 10/24/17 1035 Author: LOLLY Mccullough Service: Operations Support [employer]essionals Author Type: Nurse Practitioner Filed: 10/24/17 1228 Date of Service: 10/24/17 1035 Status: Signed Deck Scaler: LOLLY Mccullough (Nurse Practitioner) [facility] Service: Operations Support [employer]essionals Progress Note Bravo Henry 37 y.o. Hospital Day: LOS: 10 days Post-Op Day: * No surgery found * Consulting Physicians Treatment Team: Admitting Provider: Dnei Shearer MD SUBJECTIVE Patient Summary: Per Palmira Givens's H&P: "The patient is a 37 y.o. male with unknown history other than polysubstance abuse who presents as a transfer from [facility] Emergency Department. Per report the patient was in the process of incarceration and was no lisa to have altered mental status and began having active seizure activity described as pepe c clonic movements lasting approximately 45 minutes. He was transported to [facility] and was intubated for airway protection. [...] initial evaluation, the patient was transferred to [facility] ICU for further evaluation and treatment. Of [...] Case Management by HENRY Reagan at 10/24/17 2975 Author: HENRY Reagan Service: (none) Author Type: Parole Agent Filed: 10/24/17 6417 Date of Service: 10/24/17929 Status: Addendum Deck Scaler: HENRY Reagan (Parole Agent) Related Notes: Original Note by HENRY Reagan (Parole Agent) filed at 10/24/17 1021 CM delivered telepsych cart, patient agreeable to psych consult. Discharge Plan: patient to discharge with mother once medically stable HENRY Reagan onver herb Transaction, Provider Unknown - 10/24/2017 9:20 AM PDT Therapy Progress Note by Kirsten Amanda OTR/L at 10/24/17919 Author: JERMAIN Braun/Betsy Service: (none) Author Type: Occupational Therapist Filed: 10/24/17919 Date of Service: 10/24/17919 Status: Signed Deck Scaler: JERMAIN Braun/Betsy (Occupational Therapist) 10/24/17 0800 OT Last Visit OT Received On 10/24/17 Requires OT Follow Up Unavailable Other Comments Comments Attempted to see pt for OT eval, pt currently working with PT, will continue to fo llow up as census permits. onver herb Transaction, Provider Unknown - 10/24/2017 9:04 AM PDT Progress Notes by Alisha Nieves RD at 10/24/17903 Author: Alisha Nieves RD Service: (none) Author Type: Registered Dietitian Filed: 10/24/17904 Date of Service: 10/24/17903 Status: Signed Deck Scaler: Alisha Nieves RD (Registered Dietitian) 10/24/17 0857 [...] reviewed. Recommendations Recommended energy needs ADAT. Recommend COUNSELOR CAMP consult if any concern for dysphagia. Will [...] 10/24/1753 Date of Service: 10/24/17839 Status: Addendum Deck Scaler: Lea Cantrell RN (Registered Nurse) Related Notes: Original Note by Lea Cantrell RN (Registered Nurse) filed at 0 10/24/17840 Tele psych referral established, case # [id number]. Will inform KACEY, ext [phone], and JAVIER Guzman , [phone], when time is assigned. Notified lead RN and CM time scheduled for 09:30. Anette Oneal DO - 10/23/2017 10:49 PM PDT Progress Notes by Anette Hernandez DO at 10/23/172248 Author: Anette Hernandez DO Service: Operations Support Professionals Author Type: Physician Filed: 10/23/172305 Date of Service: 10/23/172248 Status: Addendum Deck Scaler: Anette Hernandez DO (Physician) Related Notes: Original Note by Anette Hernandez DO (Physician) filed at 10/23/172304 [place] code blue called overhead. Turns out was not code but RN meant to hit staff assist bu tton. When I entered the room 3 RNs and a PALLIATIVE CARE NURSE were already there. Two RNs were holding [...] a fairly good idea . In the [facility]." On exam he has no [...] has been forgetful (prior to the fall). [facility] was notified and we will get one. onversion Ching saction, Provider Unknown - 10/23/2017 10:49 PM PDTFormatting of this note might be differen t from the original. Nurse Progress Note by Dasha Morris RN at 10/23/17 7642 Author: Dasha Morris RN Service: Operations Support Professionals Author Type: Registered Nurse Filed: 10/23/17 4832 Date of Service: 10/23/172248 Status: Signed Deck Scaler: Dasha Morris RN (Registered Nurse) I was sitting at corner desk between In from of rooms [address] and [address] when I head a thud o n the ground in room 16087. I immediately ran in to investigate. Patient [...] 10/23/17935 Date of Service: 10/23/17919 Status: Addendum Deck Scaler: Lea Cantrell RN (Registered Nurse) Related Notes: Original Note by Lea Cantrell RN (Registered Nurse) filed at 0 10/23/17919 Tele Psych referral placed, case # [id number]. Will contact RUDI Guzman CM, [phone] when ambrocio e of consult is established. Tele Psych consult time set for 10:00AM. Per protocol notified RUDI Guzman CM and 10RP's VAIBHAV Dumont. onver herb Transaction, Provider Unknown - 10/23/2017 8:04 AM PDT Nurse Progress Note by Marian Sawant RN at 10/23/17803 Author: Marian Sawant RN Service: (none) Author Type: Registered Nurse Filed: 10/23/17809 Date of Service: 10/23/17803 Status: Signed Deck Scaler: Marian Sawant RN (Registered Nurse) Upon entering [...] at 10/23/17 0708 Author: LOLLY Monterroso Service: Operations Support Professionals Author Type: Advanced Registered Mickey se Practitioner Filed: 10/23/17 1131 Date of Service: 10/23/17707 Status: Signed Deck Scaler: LOLLY Monterroso (Advanced Registered Nurse Practitioner) [facility] Service: Operations Support Professionals Progress Note Bravo Henry 37 y.o. Hospital Day: LOS: 9 days Post-Op Day: * No surgery found * Consulting Physicians Treatment Team: Admitting Provider: Deni Shearer MD SUBJECTIVE Patient Summary: Per Palmira Givens's H&P: "The patient is a 37 y.o. male with unknown history other than polysubstance abuse who presents as a transfer from [facility] Emergency Department. Per report the patient was in the process of incarceration and was no lisa to have altered mental status and began having active seizure activity described as pepe c clonic movements lasting approximately 45 minutes. He was transported to [facility] and was intubated for airway protection. [...] initial evaluation, the patient was transferred to [facility] ICU for further evaluation and treatment. Of [...] 9:15 PM PDT Nurse Progress Note by Dasha Morris RN at 10/22/172114 Author: Dasha Morris RN Service: Operations Support Professionals Author Type: Registered Nurse Filed: 10/22/171 Date of Service: 10/22/172114 Status: Signed Deck Scaler: Dasha Morris RN (Registered Nurse) Walked into [...] Management by Lea Cantrell RN at 10/22/17 2992 Author: Lea Cantrell RN Service: (none) Author Type: Registered Nurse Filed: 10/22/17 1138 Date of Service: 10/22/17752 Status: Addendum Deck Scaler: Lea Cantrell RN (Registered Nurse) Related Notes: Original Note by Lea Cantrell RN (Registered Nurse) filed at 0 10/22/17 8354 Order for psychiatric evaluation unable to be completed due to pt's vented status. Addendum: Psych consult requested by Dr. Andrews for psych medication management. Assigned Case # [id number]. oPalmira balderas ARNP - 10/22/2017 7:16 AM PDTFormatting of this note might be different from th e original. Progress Notes by LOLLY Monterroso at 10/22/17715 Author: LOLLY Monterroso Service: Operations Support Professionals Author Type: Advanced Registered Mickey se Practitioner Filed: 10/22/17 1408 Date of Service: 10/22/17715 Status: Signed Deck Scaler: LOLLY Monterroso (Advanced Registered Nurse Practitioner) [facility] Service: Operations Support Professionals Progress Note Bravo Henry 37 y.o. Hospital Day: LOS: 8 days Post-Op Day: * No surgery found * Consulting Physicians Treatment Team: Admitting Provider: Deni Shearer MD SUBJECTIVE Patient Summary: Per Palmira Givens's H&P: "The patient is a 37 y.o. male with unknown history other than polysubstance abuse who presents as a transfer from [facility] Emergency Department. Per report the patient was in the process of incarceration and was no lisa to have altered mental status and began having active seizure activity described as pepe c clonic movements lasting approximately 45 minutes. He was transported to [facility] and was intubated for airway protection. [...] initial evaluation, the patient was transferred to [facility] ICU for further evaluation and treatment. Of [...] exclusive of all other procedures. LOLLY Monterroso 10/22/2017 7:17 AM onversion Transa ction, Provider Unknown - 10/21/2017 6:43 PM PDT Progress Notes by Radha Luna RN at 10/21/171842 Author: Radha Luna RN Service: (none) Author Type: Registered Nurse Filed: 10/21/171843 Date of Service: 10/21/171842 Status: Signed Deck Scaler: Radha Luna RN (Registered Nurse) Pts brother at bedside update given to all family. Pt's brother verbally aggressive. Brothe r calmed down by Johnson onver herb Transaction, Provider Unknown - 10/21/2017 6:28 PM PDT Progress Notes by Ambrocio Reynolds at 10/21/171827 Author: Ambrocio Reynolds Service: (none) Author Type: Filed: 10/21/171828 Date of Service: 10/21/171827 Status: Signed Deck Scaler: Ambrocio Reynolds (Wet Pan Mixer) Mother requested bible; NT & Psalms delivered, to her thanks. Also, prayer offered and acc epted for pt's well-being and God's blessing. onver herb Transaction, Provider Unknown - 10/21/2017 12:25 PM PDT Progress Notes by Radha Luna RN at 10/21/17 1225 Author: Radha Luna RN Service: (none) Author Type: Registered Nurse Filed: 10/21/17 1227 Date of Service: 10/21/171224 Status: Signed Deck Scaler: Radha Luna RN (Registered Nurse) From a resp status pt appears able to extubed however pt becomes so violent and agitated th at for safety reasons pt resedated. Pt attemping to kick, swing, get OOB, and mouthing obsce ne language onver herb Transaction, Provider Unknown - 10/21/2017 11:05 AM PDT Progress Notes by Radha Luna RN at 10/21/17 110 Author: Radha Luna RN Service: (none) Author Type: Registered Nurse Filed: 10/21/17 110 Date of Service: 10/21/17 110 Status: Signed Deck Scaler: Radha Luna RN (Registered Nurse) Update to johnson given onver herb Transaction, Provider Unknown - 10/21/2017 10:58 AM PDT Progress Notes by Radha Luna RN at 10/21/17 105 Author: Radha Luna RN Service: (none) Author Type: Registered Nurse Filed: 10/21/17 1052 Date of Service: 10/21/171057 Status: Signed Deck Scaler: Radha Luna RN (Registered Nurse) Called johnson for an update after rounding, no answer and mail box not set up. onver herb Transaction, Provider Unknown - 10/21/2017 10:22 AM PDT Case Management by Julia Oswald RN at 10/21/17 1022 Author: Julia Oswald RN Service: (none) Author Type: Registered Nurse Filed: 10/21/17 1034 Date of Service: 10/21/17 1022 Status: Addendum Deck Scaler: Julia Oswald RN (Registered Nurse) Related Notes: [...] pt prior. Mother was escorted out of [facility] yesterday. Deni Harper MD - 10/21/2017 10:00 AM PDT Progress Notes by Deni Shearer MD at 10/21/17 1000 Author: Deni Shearer MD Service: Operations Support Professionals Author Type: Physician Filed: 11/03/17 1350 Date of Service: 10/21/17 1000 Status: Signed Deck Scaler: Deni Shearer MD (Physician) [facility] Service: Operations Support Professionals Progress Note Bravo Henry 37 y.o. Hospital Day: LOS: 11 days Post-Op Day: * No surgery found * Consulting Physicians Treatment Team: Admitting Provider: Deni Shearer MD SUBJECTIVE Patient Summary: Per Palmira Givens's H&P: "The patient is a 37 y.o. male with unknown history other than polysubstance abuse who presents as a transfer from [facility] Emergency Department. Per report the patient was in the process of incarceration and was no lisa to have altered mental status and began having active seizure activity described as pepe c clonic movements lasting approximately 45 minutes. He was transported to [facility] and was intubated for airway protection. [...] initial evaluation, the patient was transferred to [facility] ICU for further evaluation and treatment. Of [...] 10/21/17936 Date of Service: 10/21/17935 Status: Signed Deck Scaler: Radha Luna RN (Registered Nurse) Johnson called asking for name of mine shifter RN onver herb Transaction, Provider Unknown - 10/21/2017 9:27 AM PDT Progress Notes by Radha Luna RN at 10/21/17926 Author: Radha Luna RN Service: (none) Author Type: Registered Nurse Filed: 10/21/17931 Date of Service: 10/21/17926 Status: Signed Deck Scaler: Radha Luna RN (Registered Nurse) Johnson called [...] Note by Lexii Castrejon RN at 10/20/17 1630 Author: Lexii Castrejon RN Service: (none) Author Type: Registered Nurse Filed: 10/20/17 0268 Date of Service: 10/20/171629 Status: Signed Deck Scaler: Lexii Castrejon RN (Registered Nurse) Around 1520 pt's mother return to room, she was very abrupt and agitated. As she entered [facility] room I was suctioning pt's mouth and [...] sat do wn. Karen RN call community placement worker Sindy and RUDI Wyatt (patient advocate). We discussed Elzbieta murphy's actions and after security arrived, we as a group went in to pt's room with Yoslein and she spoke molly Johnson. After their [...] Case Management by HENRY Lou at 10/20/17 1994 Author: HENRY Lou Service: (none) Author Type: Vice President Fixed Income Filed: 10/20/17 8689 Date of Service: 10/20/17 1601 Status: Signed Deck Scaler: HENRY Lou (Vice President Fixed Income) I received a voicemail from pt's mother [...] Pt's mother was escorted [facility] [employer] after talking with a Pt Advocate. The [...] Date of Service: 10/20/17 1400 Status: Signed Deck Scaler: Lexii Castrejon RN (Registered Nurse) Pt given [...] Date of Service: 10/20/17 1054 Status: Signed Deck Scaler: Jd Mcnulty RD (Registered Dietitian) 10/20/17 1047 [...] Management by Julia Oswald RN at 10/20/17 4870 Author: Julia Oswald RN Service: (none) Author Type: Registered Nurse Filed: 10/20/17 1003 Date of Service: 10/20/1770 Status: Addendum Deck Scaler: Julia Oswald RN (Registered Nurse) Related Notes: Original Note by Julia Oswald RN (Registered Nurse) filed at 10/20/17945 Spoke with the tele psych housing management representative- informed him that the pt is [...] get the a ppointment back up. Called ([phone]) the psych hotline, they set the apt [...] (none) Author Type: Registered Nurse Filed: 10/20/17 823 Date of Service: 10/20/17929 Status: Signed Deck Scaler: Lexii Castrejon RN (Registered Nurse) Pt resting [...] 1743 Date of Service: 10/20/17814 Status: Signed Deck Scaler: Lexii Castrejon RN (Registered Nurse) Pt awake [...] 0937 Date of Service: 10/20/17744 Status: Signed Deck Scaler: Lexii Castrejon RN (Registered Nurse) Pt's mother, Johnson, very agitated this morning c/o, "the mine shifter nurse yelled at him. She was hateful. [...] at 10/20/17715 Author: Breanne Davalos MD Service: Operations Support Professionals Author Type: Physician Filed: 10/20/17911 Date of Service: 10/20/17715 Status: Signed Deck Scaler: Breanne Davalos MD (Physician) [facility] Service: Operations Support Professionals Progress Note Bravo Henry 37 y.o. Hospital Day: LOS: 6 days Post-Op Day: * No surgery found * Consulting Physicians Treatment Team: Admitting Provider: Deni Shearer MD SUBJECTIVE Patient Summary: Per Palmira Givens's H&P: "The patient is a 37 y.o. male with unknown history other than polysubstance abuse who presents as a transfer from [facility] Emergency Department. Per report the patient was in the process of incarceration and was no lisa to have altered mental status and began having active seizure activity described as pepe c clonic movements lasting approximately 45 minutes. He was transported to [facility] and was intubated for airway protection. [...] initial evaluation, the patient was transferred to [facility] ICU for further evaluation and treatment. Of [...] and was agitated not following commands when warpman sedation. HEENT: sclerae clear, nonicteric, oral mmm, [...] 0014 Date of Service: 10/20/17514 Status: Addendum Deck Scaler: Demetra Brown RN (Registered Nurse) Related Notes: [...] pt with sedat ion. Around this time, Jaz Henry CNA entered the room. I asked [...] pt's VS were stable at this time. personal health coach notified of situation. No other visito rs [...] 11:00 PM PDT Nurse Progress Note by Demetra Brown RN at 10/19/172299 Author: Demetra Brown RN Service: (none) Author Type: Registered Nurse Filed: 10/20/171938 Date of Service: 10/19/172299 Status: Signed Deck Scaler: Demetra Brown RN (Registered Nurse) Pt's Aunt [...] that the aunt had just arrived from [place], that she would only be staying a [...] 1032 Date of Service: 10/19/171027 Status: Signed Deck Scaler: Julia Oswald RN (Registered Nurse) Morning rounds with Dr Davalos: Plan of care: started IV ABX due to pneumonia, still intubated and sedated. Hollis in place , tube feeds, restraints. Sedation holiday, lightening and changing sedation. Call tele psych tomorrow recommendations. Breanne Shetty MD - 10/19/2017 8:15 AM PDT Progress Notes by Breanne Davalos MD at 10/19/17814 Author: Breanne Davalos MD Service: Operations Support Professionals Author Type: Physician Filed: 10/19/17821 Date of Service: 10/19/17814 Status: Addendum Deck Scaler: Breanne Davalos MD (Physician) Related Notes: Original Note by Breanne Davalos MD (Physician) filed at 10/19/17 0822 [facility] Service: Operations Support Professionals Progress Note Bravo Henry 37 y.o. Hospital Day: LOS: 5 days Post-Op Day: * No surgery found * Consulting Physicians Treatment Team: Admitting Provider: Deni Shearer MD SUBJECTIVE Patient Summary: Per Palmira Givens's H&P: "The patient is a 37 y.o. male with unknown history other than polysubstance abuse who presents as a transfer from [facility] Emergency Department. Per report the patient was in the process of incarceration and was no lisa to have altered mental status and began having active seizure activity described as pepe c clonic movements lasting approximately 45 minutes. He was transported to [facility] and was intubated for airway protection. [...] initial evaluation, the patient was transferred to [facility] ICU for further evaluation and treatment. Of [...] and was agitated not following commands when warpman sedation. HEENT: sclerae clear, nonicteric, oral mmm, [...] 0745 Author: Juan Diego Galindo RN Service: Operations Support Professionals Author Type: Registered Nurse Filed: 10/19/17 0747 Date of Service: 10/19/17 0745 Status: Signed Deck Scaler: Juan Diego Galindo RN (Registered Nurse) [phone] end of shift audit competed. Restraints:bilateral wrist [...] Date of Service: 10/18/17 1008 Status: Signed Deck Scaler: Julia Oswald RN (Registered Nurse) Morning rounds [...] 10/18/17917 Date of Service: 10/18/17849 Status: Signed Deck Scaler: Julia Oswald RN (Registered Nurse) Spoke to Brittney Phillips from [facility] about seeing pt. Breanne Shetty MD - 10/18/2017 8:20 AM PDT Progress Notes by Breanne Davalos MD at 10/18/17819 Author: Breanne Davalos MD Service: Operations Support Professionals Author Type: Physician Filed: 10/18/17829 Date of Service: 10/18/17819 Status: Signed Deck Scaler: Breanne Davalos MD (Physician) [facility] Service: Operations Support Professionals Progress Note Bravo Henry 37 y.o. Hospital Day: LOS: 4 days Post-Op Day: * No surgery found * Consulting Physicians Treatment Team: Admitting Provider: Deni Shearer MD SUBJECTIVE Patient Summary: Per Palmira Givens's H&P: "The patient is a 37 y.o. male with unknown history other than polysubstance abuse who presents as a transfer from [facility] Emergency Department. Per report the patient was in the process of incarceration and was no lisa to have altered mental status and began having active seizure activity described as pepe c clonic movements lasting approximately 45 minutes. He was transported to [facility] and was intubated for airway protection. [...] initial evaluation, the patient was transferred to [facility] ICU for further evaluation and treatment. Of [...] issues. Given 1 dose of ceftriaxone at [facility]. Monitor off ABX. LP negative. HEME: Leukocytosis [...] at 10/18/17650 Author: Chris Padilla RN Service: Operations Support Professionals Author Type: Registered Nurse Filed: 10/18/1753 Date of Service: 10/18/17650 Status: Signed Deck Scaler: Chris Padilla RN (Registered Nurse) [phone] end of shift audit competed. Restraints:bilateral wrist [...] at 10/18/17444 Author: Chris Padilla RN Service: Operations Support Professionals Author Type: Registered Nurse Filed: 10/18/17 0554 Date of Service: 10/18/17444 Status: Addendum Deck Scaler: Chris Padilla RN (Registered Nurse) Related Notes: [...] at 10/18/17139 Author: Chris Padilla RN Service: Operations Support Professionals Author Type: Registered Nurse Filed: 10/18/17143 Date of Service: 10/18/17139 Status: Signed Deck Scaler: Chris Padilla RN (Registered Nurse) 10/18/17 0121 [...] Case Management by HENRY Lou at 10/17/17 1622 Author: HENRY Lou Service: (none) Author Type: Vice President Fixed Income Filed: 10/17/17 7808 Date of Service: 10/17/171623 Status: Signed Deck Scaler: HENRY Lou (Vice President Fixed Income) 10/17/17 1621 Discharge Planning Evaluation Admitting Diagnosis seizure Readmission No Living Arrangements Parent Support Systems Parent;Family members Type of Residence Private residence House type Mobile home Bathrooms on 1st Floor 1-Full Independent with ADL's Yes Independent with Mobility Yes Home Care Services No Caregiver after Discharge No Mental Status Unable to answer questions (vented) Prior functional status Independent Power of Supervisor Machine Setter No (Discussed importance of POA with mother. Will dicuss with pt when extubated) Anticipated Discharge Plan Plan communicated to patient/family Yes Resources Financial concerns No Transportation issues No Patient/Family concerns Yes (Drug dependence and legal issues) Anticipated Disposition Facility Type Home Met with: pt's mother Johnson Roman [phone] and discussed discharge planning, Pt is a 37 y.o., male admitted with seizure. Pt was being booked at [facility] when he had a seizure. Jaleesa t to [facility] and transferred to [facility]. Pt has positive tox screen for meth, MJ, MDMA. Per mother, pt has been using drugs since his 20's. He has been in trouble with the law si nce his teens having been in juvenile nursing home when he was young. Mother states that pt has spent most of his adult life incarcerated. He was recently relea sed from [facility] in May 2017. Pt lives with his mother in a mobile home. He is independent. Does not have a DL. Pt has never been in a MH or drug treatment facility. Pt has 2 children ages 16 and 12. He is a member of the [employer] and is a patient at [facility] in [place]. Patient's PCP is: No primary care provider [...] Author: HENRY Lou Service: (none) Author Type: Vice President Fixed Income Filed: 10/17/17 1349 Date of Service: 10/17/17 1345 Status: Signed Deck Scaler: HENRY Lou (Vice President Fixed Income) Received t/c from Conchita who informed that she was able to get a hold of pt's mother. Pt's mother is Johnson Roman. I spoke with her and gave basic info about pt's admit. She will be here in about 1 hour. Johnson Roman- [phone]. onver herb Transaction, Provider Unknown - 10/17/2017 10:14 AM PDT Case Management by Julia Oswald RN at 10/17/17 1014 Author: Julia Oswald RN Service: (none) Author Type: Registered Nurse Filed: 10/17/17 1020 Date of Service: 10/17/17 1014 Status: Signed Deck Scaler: Julia Oswald RN (Registered Nurse) Morning rounds [...] Author: HENRY Lou Service: (none) Author Type: Vice President Fixed Income Filed: 10/17/17 1058 Date of Service: 10/17/17933 Status: Addendum Deck Scaler: HENRY Lou (Vice President Fixed Income) Related Notes: Original Note by HENRY Lou (Vice President Fixed Income) filed at 10/17/17934 Received return call from [employer] Angela Meza ([phone]). Returned call and left message a gain as I got voicemail. Await return call. Attended morning rounds. Re-intubated yesterday after self extubating. Given names of peopl e that pt mentioned to RN before being intubated. Called "Conchita" at [phone] and left message. She supposedly is the mother of pt's child. Called "Evelyne" at [phone] left a message though the recording only informed that it was "[place]". Called another number for Evelyne [phone] which has been busy every time I've called. I looked up pt's GF/MOB on Facebook and found that she has 5 accounts. I wrote a short mes abiel on each account requesting a phone call lisa. FB account states that GF lives in [place], [place] so I called 411. No person with that name in [place]. FB also states that GF lives in [place], [place] however when I called 411 they stated that [place] is not a city in [place]. onver herb Transaction, Provider Unknown - 10/17/2017 8:57 AM PDT Progress Notes by Jd Mcnulty RD at 10/17/17856 Author: Jd Mcnulty RD Service: (none) Author Type: Registered Dietitian Filed: 10/17/17856 Date of Service: 10/17/17856 Status: Signed Deck Scaler: Jd Mcnulty RD (Registered Dietitian) 10/17/17847 Subjective [...] Progress Note by Chris Padilla RN at 10/17/17638 Author: Chris Padilla RN Service: Operations Support Professionals Author Type: Registered Nurse Filed: 10/17/17640 Date of Service: 10/17/17638 Status: Signed Deck Scaler: Chris Padilla RN (Registered Nurse) [phone] end of shift audit competed. Restraints:ordered and [...] Samaniego at 10/17/17136 Author: LOLLY Samaniego Service: Operations Support Professionals Author Type: Advanced Registered Mickey se Practitioner Filed: 10/17/17532 Date of Service: 10/17/17136 Status: Signed Deck Scaler: LOLLY Samaniego (Advanced Registered Nurse Practitioner) [facility] Service: Operations Support Professionals Progress Note Bravo Henry 37 y.o. Hospital Day: LOS: 3 days Post-Op Day: * No surgery found * Consulting Physicians Treatment Team: Admitting Provider: Deni Shearer MD SUBJECTIVE Patient Summary: Per Palmira Givens's H&P: "The patient is a 37 y.o. male with unknown history other than polysubstance abuse who presents as a transfer from [facility] Emergency Department. Per report the patient was in the process of incarceration and was no lisa to have altered mental status and began having active seizure activity described as pepe c clonic movements lasting approximately 45 minutes. He was transported to [facility] and was intubated for airway protection. [...] initial evaluation, the patient was transferred to [facility] ICU for further evaluation and treatment. Of [...] issues. Given 1 dose of ceftriaxone at [facility]. Monitor off ABX. LP negative. HEME: [...] Date of Service: 10/16/17 1552 Status: Signed Deck Scaler: Sumanth Yang RRT (Registered Respiratory Therapist) Responded to staff assist/code blue to find patient had self extubated while in 4 point res traints. BMV was being performed by RN. Patient was emergently re-intubated by executive chairman and placed back on mechanical ventilation. onver herb Transaction, Provider Unknown - 10/16/2017 12:11 PM PDT Therapy Progress Note by JERMAIN Braun/Betsy at 10/16/17 1211 Author: KAIA Braun Service: (none) Author Type: Occupational Therapist Filed: 10/16/17 1211 Date of Service: 10/16/17 1211 Status: Signed Deck Scaler: KAIA Braun (Occupational Therapist) 10/16/17 1210 OT [...] Author: HENRY Lou Service: (none) Author Type: Vice President Fixed Income Filed: 10/16/17 1243 Date of Service: 10/16/17 1013 Status: Signed Deck Scaler: HENRY Lou (Vice President Fixed Income) Attended morning rounds. Pt is vented. Had [...] Date of Service: 10/16/17 0953 Status: Signed Deck Scaler: Patty Oconnell RN (Registered Nurse) Pt continuously [...] Date of Service: 10/16/17 08 Status: Signed Deck Scaler: Raine Park PT (Physical Therapist) 10/16/17 0852 [...] 10/16/17 0400 Author: Chris Padilla RN Service: Operations Support Professionals Author Type: Registered Nurse Filed: 10/16/17 0437 Date of Service: 10/16/17 0400 Status: Signed Deck Scaler: Chris Padilla RN (Registered Nurse) RN had [...] knew he was in the hospital in [place]. Pt is receiving IV fluids and sedation [...] 10/16/17323 Author: Juan Diego Galindo RN Service: Operations Support Professionals Author Type: Registered Nurse Filed: 10/16/171 Date of Service: 10/16/17323 Status: Signed Deck Scaler: Juan Diego Galindo RN (Registered Nurse) Pt [...] that he doesn't know. Pt reoriented to [facility]. Pt reports that he is going to [...] at 10/16/17 030 Author: LOLLY Samaniego Service: Operations Support Professionals Author Type: Advanced Registered Mickey se Practitioner Filed: 10/17/17 0136 Date of Service: 10/16/17299 Status: Addendum Deck Scaler: LOLLY Samaniego (Advanced Registered Nurse Practitioner) Related Notes: Original Note by LOLLY Samaniego (Advanced Registered Nurse Practiti tameka) filed at 10/16/17 0625 [facility] Service: Operations Support Professionals Progress Note Bravo Henry 37 y.o. Hospital Day: LOS: 2 days Post-Op Day: * No surgery found * Consulting Physicians Treatment Team: Admitting Provider: Deni Shearer MD SUBJECTIVE Patient Summary: Per Palmira Givens's H&P: "The patient is a 37 y.o. male with unknown history other than polysubstance abuse who presents as a transfer from [facility] Emergency Department. Per report the patient was in the process of incarceration and was no lisa to have altered mental status and began having active seizure activity described as pepe c clonic movements lasting approximately 45 minutes. He was transported to [facility] and was intubated for airway protection. [...] initial evaluation, the patient was transferred to [facility] ICU for further evaluation and treatment. Of [...] issues. Given 1 dose of ceftriaxone at [facility]. Monitor off ABX. LP negative. HEME: [...] plan exclusive of all other procedures. LOLLY Samaneigo 10/16/2017 onversion Transa ction, Provider Unknown - 10/15/2017 3:42 PM PDT Progress Notes by Patty Oconnell RN at 10/15/17 2952 Author: Patty Oconnell RN Service: (none) Author Type: Registered Nurse Filed: 10/15/17 1616 Date of Service: 10/15/17 154 Status: Signed Deck Scaler: Patty Oconnell RN (Registered Nurse) Pt awakens restless, somewhat non-cooperative, when Precedex gtt titrated down. States "I drink alcohol every single day. I feel like I need a beer right now." And asks "Can't I ju st go across the street and grab a fifth." Once reoriented to current place/situation, he asked "But what about the care home?" And "Is my cousin here?" Declines to [...] Notes by Sumanth Yang RRT at 10/15/17 4961 Author: Sumanth Yang RRT Service: (none) Author Type: Registered Respiratory Therap ist Filed: 10/15/17 2964 Date of Service: 10/15/17 5769 Status: Signed Deck Scaler: Sumanth Yang RRT (Registered Respiratory Therapist) Placed [...] Date of Service: 10/15/17 1204 Status: Signed Deck Scaler: Sergei Callejas () Visit per Rounds/ & [...] Date of Service: 10/15/17 1147 Status: Signed Deck Scaler: KAIA Braun (Occupational Therapist) 10/15/17 1146 OT [...] Author: HENRY Lou Service: (none) Author Type: Vice President Fixed Income Filed: 10/16/17 0823 Date of Service: 10/15/17 1130 Status: Addendum Deck Scaler: HENRY Lou (Vice President Fixed Income) Related Notes: Original Note by HENRY Lou (Vice President Fixed Income) filed at 10/15/17 1662 Requested by LOLLY Chavis to find family or a POA. I was unable to look for family yesterda y but suggested that the security services specialist assist by calling the security services specialist from the institution pt cam e from to see if to see if that security services specialist could give any info about family contacts. Per security services specialist note, the PCC at [facility] was contacted and provided the name of Johnson Roman but the number provided was a non-working number. Today, I called the [facility] care home ) and left a message (not open on we ekends) requesting a return call on Tuesday. I called [facility] ([phone]) and spoke with a rep who stat es that pt was being booked into their correction yesterday but then left due to medical crisis. She states that pt's YAN# for future reference is [id number]. She states that pt had no family members or friends listed as contacts or visitors. I called [facility]anny, Adriane ([phone]). She will call me back with any names or numbers she has for contacts. Addendum: Received return call. No other family names other than Johnson roman at which is a non-working number. I also called [facility] ([phone]) as it was brought up in rounds that pt is connected to a [place]. Left message (closed today) requesting a return call Tuesday morn ing with any family names/numbers for us to contact. onver herb Transaction, Provider Unknown - 10/15/2017 8:27 AM PDT Therapy Progress Note by Raine Park PT at 10/15/17 826 Author: Raine Park PT Service: (none) Author Type: Physical Therapist Filed: 10/15/17830 Date of Service: 10/15/17826 Status: Signed Deck Scaler: Raine Park PT (Physical Therapist) 10/15/17826 PT [...] Monterroso at 10/15/17728 Author: LOLLY Monterroso Service: Operations Support Professionals Author Type: Advanced Registered Mickey se Practitioner Filed: 10/15/17828 Date of Service: 10/15/17728 Status: Signed Deck Scaler: LOLLY Monterroso (Advanced Registered Nurse Practitioner) [facility] Service: Operations Support Professionals Progress Note Bravo Henry 37 y.o. Hospital Day: LOS: 1 day Post-Op Day: * No surgery found * Consulting Physicians Treatment Team: Admitting Provider: Deni Shearer MD SUBJECTIVE Patient Summary: Per Palmira Givens's H&P: "The patient is a 37 y.o. male with unknown history other than polysubstance abuse who presents as a transfer from [facility] Emergency Department. Per report the patient was in the process of incarceration and was no lisa to have altered mental status and began having active seizure activity described as pepe c clonic movements lasting approximately 45 minutes. He was transported to [facility] and was intubated for airway protection. [...] initial evaluation, the patient was transferred to [facility] ICU for further evaluation and treatment. Of [...] issues. Given 1 dose of ceftriaxone at [facility]. Monitor off ABX. LP negative. HEME: [...] 10/15/17423 Date of Service: 10/15/17422 Status: Signed Deck Scaler: Demetra Brown RN (Registered Nurse) Chart review complete. onver herb Transaction, Provider Unknown - 10/14/2017 7:03 PM PDT Nurse Progress Note by Avis Rico RN at 10/14/171902 Author: Avis Rico RN Service: (none) Author Type: Registered Nurse Filed: 10/14/171902 Date of Service: 10/14/171902 Status: Signed Deck Scaler: Avis Rico RN (Registered Nurse) End of shift documentation complete. onver herb Transaction, Provider Unknown - 10/14/2017 6:03 PM PDT Progress Notes by Ambrocio Reynolds at 10/14/171802 Author: Ambrocio Reynolds Service: (none) Author Type: Filed: 10/14/171922 Date of Service: 10/14/171802 Status: Addendum Deck Scaler: Ambrocio Reynolds () Related Notes: Original Note by Ambrocio Reynolds () filed at 10/14/171904 Problem: No family contacts Requested by lead RUDI Lou to seek name & # of family or other contacts for pt, as none c [place] with him and no one has come to see him. Contacted BASSAM Liu at [facility] in [place]. She reported the pt's mother is listed as LNOK: Johnson Roman. The number provided by [facility] is not a working number. Reported above to pt's RN Avis & to the unit lead. They indicated they would attempt to c ontact the pt's mother. ADDENDUM: When on-line researching pt's family, it was discovered that pt has a history of criminal violence. [facility] RN & PCC both notified of the above. onver herb Transaction, Provider Unknown - 10/14/2017 3:41 PM PDT Progress Notes by Dary Gilmore RPH at 10/14/171540 Author: Dary Gilmore RPH Service: Pharmacy Author Type: Pharmacist Filed: 10/14/171540 Date of Service: 10/14/171540 Status: Signed Deck Scaler: Dary Gilmore RPH (Pharmacist) Clinical Pharmacy Note: [...] | | | Basophils | performed at [facility];[address] | [address] | LAB | | | | [address];[place], [place] | | | | | | [address] | | | | + + + [...] | QTc monitoring. Historically converted procedure from [facility] | EXTERNAL LAB | | Epic environment [...] EXTERNAL | | | | performed at [facility];[address] | | LAB | | | | [facility];[place], [place] | | | | | | [address] | | | | + + + [...] LAB | | | | performed at [facility];[address] | | | | | | [address];[place], [place] | | | | | | [address] | | | | + + + [...] | | | | | performed at [facility];[address] | | | | | | [address];[place], [place] | | | | | | [address] | | | | + + + [...] | | | Basophils | performed at [facility], [address] | K[address] | LAB | | | | [address], | | | | | | [place] [address] | | | | + + + [...] | | | | | [place] [address] | | | | + + + [...] EXTERNAL | | | | performed at [facility], [address] | | LAB | | | | [address], | | | | | | [place] [address] | | | | + + + [...] | | | | | performed at [facility], [address] | | | | | | [address], | | | | | | [place] [address] | | | | + + + [...] | | | | | | [place] [address] | | | | + + + [...] | | | | | performed at [facility], [address] | | | | | | [facility] | | | | | | [place] [address] | | | | + + + [...] | | | | | with both TN-3 and | | | | | | [...] | | | 3 | performed by [facility], | | | | | | [address], | | | | | | [facility] [address] | | | | + + + [...] | | | Basophils | performed at [facility], [address] | K/uL | LAB | | | | [address], | | | | | | [place] [address] | | | | + + + [...] EXTERNAL | | | | performed at [facility], [address] | | LAB | | | | [address], | | | | | | [place] [address] | | | | + + + [...] | | | | | [place] [address] | | | | + + + [...] | | | | | | MDRD [facility] traceable | | | | | | equation.Testing | | | | | | performed at [facility], [address] | | | | | | [facility], | | | | | | [place] [address] | | | | + + + [...] | | | Basophils | performed at [facility], [address] | K/uL | LAB | | | | [address], | | | | | | [place] [address] | | | | + + + [...] | | | | | [place] [address] | | | | + + + [...] | | | | | performed at [facility], [address] | | | | | | [facility], | | | | | | [place] [address] | | | | + + + [...] | | | | | performed at [facility], [address] | | | | | | [address], | | | | | | [place] [address] | | | | + + + [...] | | | Basophils | performed at [facility], [address] | K/uL | LAB | | | | [address], | | | | | | [place] [address] | | | | + + + [...] EXTERNAL | | | | performed at [facility], [address] | | LAB | | | | [address], | | | | | | [place] [address] | | | | + + + [...] EXTERNAL | | | | performed at [facility], [address] | | LAB | | | | [address], | | | | | | [place] [address] | | | | + + + [...] | | | | | performed at [facility], [address] | | | | | | [facility], | | | | | | [place] [address] | | | | + + + [...] | | | | | | at [facility];[address] [place] [address] | | | | | | [facility];[place] [address] | | | | + + + [...] | | | Basophils | performed at [facility], [address] | K/uL | LAB | | | | [address], | | | | | | [place] [address] | | | | + + + [...] EXTERNAL | | | | performed at [facility], [address] | | LAB | | | | [address], | | | | | | [place] [address] | | | | + + + [...] EXTERNAL | | | | performed at [facility], [address] | | LAB | | | | [address], | | | | | | [place] [address] | | | | + + + [...] | | | | | performed at [facility], [address] | | | | | | [facility], | | | | | | [place] [address] | | | | + + + [...] EXTERNAL | | | | performed at [facility];[address] | mmol/L | LAB | | | | [address] [facility];[place], [place] | | | | | | [address] | | | | + + + [...] | | | | | | [address], [address] | | | | | | [place] | | | | | | [address] | | | | + + + [...] | | | es | performed at [facility], [address] | | LAB | | | | [address], | | | | | | [place] [address] | | | | + + + [...] EXTERNAL | | | | performed at [facility], [address] | | LAB | | | | [address], | | | | | | [place] [address] | | | | + + + [...] EXTERNAL | | | | performed at [facility], [address] | | LAB | | | | [address], | | | | | | [place] [address] | | | | + + + [...] | | | | | performed at [facility], [address] | | | | | | [facility], | | | | | | [place] [address] | | | | + + + [...] LAB | | | | performed at [facility];[address] | | | | | | [facility];[place], [place] | | | | | | [address] | | | | + + + [...] EXTERNAL | | | | performed at [facility] | | LAB | | | | [address];[place] | | | | | | [address] | | | | + + + [...] EXTERNAL | | | | performed at [facility];[address] | | LAB | | | [address];[place], [place] | | | | | | [address] | | | | + + + [...] | | | Basophils | performed at [facility], [address] | K/uL | LAB | | | | [address], | | | | | | [place] [address] | | | | + + + [...] EXTERNAL | | | | performed at [facility], [address] | | LAB | | | | [address], | | | | | | [place] [address] | | | | + + + [...] EXTERNAL | | | | performed at [facility], [address] | | LAB | | | | [address], | | | | | | [place] [address] | | | | + + + [...] | | | | | | MDRD IDNJ traceable | | | | | | equation.Testing | | | | | | performed at [facility], [address] | | | | | | [facility], | | | | | | [place] [address] | | | | + + + + + + + + | Specimen | + + | Blood specimen | | (specimen) | + + + +---------+ + + | Performing | Address | City/State[facility] | Phone Number | | Organization | [...] LAB | | | | performed at [facility];[address] | | | | | | [address];[place] | | | | | | [address] | | | | + + + [...] EXTERNAL | | | | performed at [facility];[address] | | LAB | | | | Nalini Enriquez;[place], [place] | | | | | | [address] | | | | + + + [...] LAB | | | | performed at [facility];[address] | | | | | | Nalini Enriquez;[place] | | | | | | [address] | | | | + + + [...] | | | | | performed at [facility];[address] | | | | | | [address] M[address];[place], [place] | | | | | | [address] | | | | + + + [...] EXTERNAL | | | | performed at [facility] | | LAB | | | | Nalini Enriquez;[place] | | | | | | [address] | | | | + + + [...] | | | | | performed at [facility];[address] | | | | | | Browne [facility];[place], [place] | | | | | | [address] | | | | + + + [...] Procedure Note | + -------+ | Samir Rivera - 10/04/2018 11:13 AM PDT BRAVO CARL/ [...] | | | Basophils | performed at [facility], [address] | [address] | LAB | | | | [address], | | | | | | [place] [address] | | | | + + + [...] EXTERNAL | | | | performed at [facility] | | LAB | | | | [facility];[place], [place] | | | | | | [address] | | | | + + + [...] EXTERNAL | | | | performed at [facility];[address] | | LAB | | | | Nalini Garridovd;[place] | | | | | | [address] | | | | + + + [...] EXTERNAL | | | | performed at [facility];[address] | | LAB | | | | Nalini Enriquez;[place], [place] | | | | | | [address] | | | | + + + [...] EXTERNAL | | | | performed at [facility];[address] | | LAB | | | | Nalini Enriquez;[place] | | | | | | [address] | | | | + + + [...] | | | | | performed at [facility];[address] | | | | | | [facility];[place], [place] | | | | | | [address] | | | | + + + [...] | | | Basophils | performed at [facility], [address] | K/uL | LAB | | | | Jenny Enriquez, | | | | | | [place] [address] | | | | + + + [...] EXTERNAL | | | | performed at [facility], [address] | | LAB | | | | Jenny Enriquez, | | | | | | [place] [address] | | | | + + + [...] | | | | | [place] [address] | | | | + + + [...] EXTERNAL | | | | performed at [facility];[address] | | LAB | | | | [address];[place], [place] | | | | | | [address] | | | | + + + [...] | | | | | performed at [facility], [address] | | | | | | [facility] [address], | | | | | | [place] [address] | | | | + + + [...] EXTERNAL | | | | performed at [facility];[address] | mmol/L | LAB | | | | Nalini Enriquez;[place] | | | | | | [address] | | | | + + + [...] EXTERNAL | | | | performed at [facility];[address] | | LAB | | | | Nalini Enriquez;[place], [place] | | | | | | [address] | | | | + + + [...] | | | | | performed at [facility];[address] | | | | | | [facility];[place], [place] | | | | | | [address] | | | | + + + [...] Conversion - 10/04/2018 11:13 AM PDT BRAVO EHNRY CHEST 1 | | VIEW10/14/2017 1:11 PM [...] NEGATIVE Testing | | | performed at [facility];[address] [place] [address];[place] [address] | | + + + + +---------+ [...] | | | Fingerstick | performed at [facility];[address] | | LAB | | | | Nalini Enriquez;[place] | | | | | | [address] | | | | + + + [...]
--- OUTSIDE RECORDS SUMMARY | ~2019-02-07 | XMS | Clinical Summary ---
Demographics + + + | Address | [address] | | | [place] [address] | + + + | Home Phone | | + + + | Preferred Language | Unknown | + + + | Marital Status | Single | + + + | Latter Day Affiliation | Unknown | + + + | Race | Unknown | + + + | Ethnic Group | Unknown | + + + Author + + + | Author | [facility] (Historical as of | | | 10-07-18) | + + + | Organization | [facility] (Historical as of | | | 10-07-18) | + + + | Address | Unknown | + + + | Phone | Unavailable | + + + Support + + +---------+ + | Name | Relationship | Address | Phone | + + +---------+ + | Renetta Roman | ECON | Unknown | | + + +---------+ + Care Team Providers + +------+ + | Care [employer]ley[employer] Coach Name | Role | Phone | + +------+ + | None, Per Pt | PP | [id number] | + +------+ + Allergies No Known Allergies Current Medications No known medications Active Problems + + + | Problem | Noted Date | + + + | SIRS (systemic inflammatory response syndrome) (HCC) | 10/19/2017 | + + + | Acute metabolic encephalopathy | 10/17/2017 | + + + | Polysubstance abuse (HCC) | 10/14/2017 | + + + | Seizure (HCC) | 10/14/2017 | + + + Resolved Problems + + + + | Problem | Noted | Resolved | | | Date | Date | + + + + | Bandemia | 10/15/19 | | | | 18 | 8 | + + + + Social History + +-------+ +--------+------+ | Tobacco Use | Types | Packs/Day | Years | Date | | | | | Used | | + +-------+ +--------+------+ | Current Every Day | | | | | | Smoker | | | | | + +-------+ +--------+------+ + + | Tobacco Cessation: Ready to Quit: No; Counseling Given: No | | Comments: smokes marijuana per mother; pt intubated unable to discuss above | + + + + + | Sex Assigned at | Date Recorded | | | | + + + | Not on file | | + + + Last Filed Vital Signs + + + + | Vital Sign | Reading | Time Taken | + + + + | Blood Pressure | 115/69 | 10/25/2017 3:26 AM PDT | + + + + | Pulse | 79 | 10/25/2017 4:00 AM PDT | + + + + | Temperature | 36.6 C (97.9 F) | 10/25/2017 3:26 AM PDT | + + + + | Respiratory Rate | 18 | 10/25/2017 3:26 AM PDT | + + + + | Oxygen Saturation | 97% | 10/25/2017 3:26 AM PDT | + + + + | Inhaled Oxygen | - | - | | Concentration | | | + + + + | Weight | 71.1 kg (156 lb 12 | 10/22/2017 4:00 AM PDT | | | oz) | | + + + + | Height | 175.3 cm (5' 9") | 10/14/2017 8:00 PM PDT | + + + + | Body Mass Index | 23.15 | 10/22/2017 4:00 AM PDT | + + + + Plan of Treatment Not on file Results Not on filefrom Last 3 Months Insurance + +--------+ +------+-------+ + | Payer | Benefi | Subscriber | Type | Phone | Address | | | t Plan | ID | | | | | | / | | | | | | | Group | | | | | + +--------+ +------+-------+ + | MEDICAID | MEDICA | [id number] | | | [address] | | | ID | | | | [place] | | | [place] | | | | [phone] | + +--------+ +------+-------+ + | [employer] | YELLOW | [id number] | | | | | PLANS | [place] | | | | | + +--------+ +------+-------+ + + +--------+ +--------+ + + | Guarantor Name | Accoun | Relation to | Date | Phone | Billing Address | | | t Type | Patient | of | | | | | | | | | | + +--------+ +--------+ + + | BRAVO HENRY | Person | Self [birth year] | Home: | [address] | | | al/[place] | | 1980 | [phone] | [address] [place] | | | [place] | | | [phone] | + +--------+ +--------+ + +
--- OUTSIDE RECORDS SUMMARY | ~2019-02-07 | XMS | Encounter Summary ---
Demographics + + + | Address | [address] | | | [place] [address] | + + + | Home Phone | | + + + | Preferred Language | Unknown | + + + | Marital Status | Single | + + + | Worship Affiliation | Unknown | + + + | Race | Unknown | + + + | Ethnic Group | Unknown | + + + Author + + + | Author | [facility] | | | and [place] | + + + | Organization | [facility] | | | and [place] | [...] Team Providers + +------+ + | Care Supervisor Process Testing Name | Role | Phone | + [...] [place] | | | | | | [phone] | (Fax) | | | | | [...]
--- OUTSIDE RECORDS SUMMARY | ~2019-02-07 | XMS | Clinical Summary ---
Demographics + + + | Address | [address] | | | [place] [address] | + + + | Home Phone | | + + + | Preferred Language | Unknown | + + + | Marital Status | Single | + + + | Mosque Affiliation | Unknown | + + + | Race | Unknown | + + + | Ethnic Group | Unknown | + + + Author + + + | Author | [facility] | | | and [place] | + + + | Organization | [facility] | | | and [place] [...] Team Providers + +------+ + | Care Chief Clinical Dietitian Name | Role | Phone | + [...]
--- OUTSIDE RECORDS SUMMARY | ~2019-02-07 | XMS | Clinical Summary ---
Demographics + + + | Address | [address] | | | [place] [address] | + + + | Home Phone | | + + + | Preferred Language | Unknown | + + + | Marital Status | Single | + + + | Baptist Affiliation | Unknown | + + + | Race | Unknown | + + + | Ethnic Group | Unknown | + + + Author + + + | Author | [facility] (Historical as of | | | 10-07-18) | + + + | Organization | [facility] (Historical as of | | | 10-07-18) [...] Team Providers + +------+ + | Care Cannoneer Name | Role | Phone | + [...] +------+-------+ + | MEDICAID | MEDICA | [id number] | | | [address] | | | ID | | | | [place] | | | [place] | | | | [address] | + +--------+ +------+-------+ + | [facility] | YELLOW | [id number] | | | | | PLANS | [...] | Self | [birth year] | Home: | [address] | | | al/[place] | | 1980 | [phone] | [address] [place] | | | [place] | | | [phone] | + +--------+ +--------+ + +
== END 2019-02-07 19:53 | disposition home or self-care (01) ==
LOC: ED 18:09
DX: J10.1 Influenza due to other identified influenza virus with other respiratory manifestations (principal); F17.200 Nicotine dependence, unspecified, uncomplicated
CPT/HCPCS: 71045; 87502; 99283-25